=== PATIENT | female | born 2000 | race Caucasian/White ===

== ENCOUNTER 2020-03-02 12:38 | Emergency (ER) | payer SELFPAY ==
[2020-03-02 14:11] VITALS: BP 118/74; PULSE 84; RESP 18; TEMP 36.8; O2SAT 99
--- NOTE | 2020-03-02 15:18 | ED.GENADULT ---
HPI - General Adult General Chief complaint: Abdominal Pain <EFREN Mujica Last Filed: 03/02/20 16:24> Stated complaint: menstral cramps <FEREN Mujica Last Filed: 03/02/20 16:24> Time Seen by Provider: 03/02/20 14:04 <EFREN Mujica Last Filed: 03/02/20 16:24> Source: patient <EFREN Mujica Last Filed: 03/02/20 16:24> Mode of arrival: ambulatory <EFREN Mujica Last Filed: 03/02/20 16:24> Limitations: no limitations <EFREN Mujica Last Filed: 03/02/20 16:24> History of Present Illness HPI narrative: Patient presents with chief complaint of heavy menstrual cramps that woke her up at approximately 2 AM. Patient states she took 4 Tylenol and a Midol and now her symptoms have greatly improved. Patient states she was having heavy menstrual bleeding, but it is also resolved around 6 AM and is now light without clots. Patient states that she is not on any control as her neurologist discontinued it due to her epilepsy. Patient states she generally has strong cramps and heavy menstrual bleeding but they are normally resolved with 2 Tylenol and a Midol. Patient states that she is possibly try for and so she wondered if she was . Patient states she has had a urinary tract infection in the past but denies those symptoms at this time or any urinary symptoms. Patient denies fever, chills, nausea, vomiting, diarrhea, abdominal pain. <Carmen Burgess PA-C - Last Filed: 03/02/20 16:24> Related Data Home medications: Home Medications Medication Instructions Recorded Confirmed fluconazole 03/02/20 methylprednisolone mg 03/02/20 metronidazole 03/02/20 rizatriptan mg 03/02/20 03/02/20 <EFREN Mujica Last Filed: 03/02/20 16:24> Allergies/adverse reactions: Allergies Allergy/AdvReac Type Severity Reaction Status Date / Time Penicillins Allergy Severe Hives / Verified 03/02/20 14:05 Red Face prochlorperazine Allergy Severe Anaphylactic Verified 03/02/20 14:05 Shock sulfamethoxazole Allergy Severe Anaphylactic Verified 03/02/20 14:05 Shock trimethoprim Allergy Severe Anaphylactic Verified 03/02/20 14:05 Shock cinnamon AdvReac Intermediate Swelling Verified 03/02/20 14:05 <Carmen Burgess PA-C - Last Filed: 03/02/20 16:24> Review of Systems Review of Systems: Narrative: CONSTITUTIONAL: Denies fever, chills, or sweats. EYES: Denies visual changes, redness, or discharge. ENT: Denies rhinorrhea, congestion, sore throat, or otalgia. CARDIOVASCULAR: Denies chest pain, palpitations, or edema. RESPIRATORY: Denies cough or dyspnea. GASTROINTESTINAL: Reports menstrual cramping and bleeding denies abdominal pain, nausea, vomiting, or diarrhea. GENITOURINARY: Denies dysuria or hematuria. SKIN: Denies rash or itching. MUSCULOSKELETAL: Denies back pain, myalgia, or joint pain NEUROLOGIC: Denies headache, numbness, dizziness, or weakness. PSYCHIATRIC: Denies anxiety or depression. <Carmen Burgess PA-C - Last Filed: 03/02/20 16:24> Exam Narrative: Exam Narrative: GENERAL: Well-appearing, well-nourished. Patient sitting up in bed without any signs of discomfort or distress. Patient smiling and talking during exam. HEAD: Normocephalic, atraumatic. EYES: PERRLA and EOMI. ENT: Nares clear, no rhinorrhea or epistaxis. Mucous membranes moist. Oropharynx without tonsillar hypertrophy exudate or other lesions. Bilateral TMs pearly sheldon nonbulging NECK: Supple. No adenopathy or masses. No vertebral tenderness or loss of ROM. CHEST: Clear to auscultation. No respiratory distress. No wheezes rales or rhonchi HEART: Regular rate and rhythm. Normal peripheral pulses. ABDOMEN: Soft, nontender, nondistended, normal active bowel sounds. No bruises noted. EXTREMITIES: No acute changes in ROM. No edema. SKIN: Warm, dry, no rash. NEURO: No focal deficits. Alert and oriented x3. PSYCH: Normal moo
[2020-03-02] MEDS: KETOROLAC (*BKC) 60 MG/2 ML VIAL 30 MG IM (15:41)
== END 2020-03-02 16:39 | disposition home or self-care (01) ==
PROVIDERS: Emergency Provider General Practice
DX: N94.6 Dysmenorrhea, unspecified (principal)
CPT/HCPCS: 81025; 96372; 99283; J1885

== ENCOUNTER 2023-03-12 00:50 | Day surgery (SDC) | payer OTHER, SELFPAY ==
[2023-03-06 13:14] VITALS: BMI 21.1
[2023-03-12 09:53] VITALS: BP 112/78; PULSE 90; RESP 16; TEMP 36.2; O2SAT 98; BMI 20.3
[2023-03-12] MEDS: LACTATED RINGERS 1,000 ML 150 ML IV CONT (10:07)
--- NOTE | 2023-03-12 10:17 | WPDANESEPPF ---
Anes - Initial Pre Proc Eval Procedure: Operation Date: 03/12/23 13:45 Proposed Procedures p Esophagogastroduodenoscopy & Colonoscopy - Isauro Tom MD Date/Time: 03/12/23 10:17 Surgeon: Isauro Tom MD Pre Op Diagnosis: vomiting unspecified, dysphagia unspecified Patient Data Age: 23 Gender: F Height: 1.66 m Weight: 56.4 kg Last Vital Signs Temp 97.2 F L 03/12/23 09:53 Pulse 90 03/12/23 09:53 Resp 16 03/12/23 09:53 BP 112/78 03/12/23 09:53 Pulse Ox 98 03/12/23 09:53 O2 Del Method Room Air 03/12/23 09:53 Allergies Allergy/AdvReac Type Severity Reaction Status Date / Time Penicillins Allergy Severe Hives / Verified 03/12/23 09:52 Red Face prochlorperazine Allergy Severe Anaphylactic Verified 03/12/23 09:52 Shock sulfamethoxazole Allergy Severe Anaphylactic Verified 03/12/23 09:52 Shock trimethoprim Allergy Severe Anaphylactic Verified 03/12/23 09:52 Shock cinnamon AdvReac Intermediate Swelling Verified 03/12/23 09:52 Home Medications Medication Instructions Recorded Confirmed Type drospirenone (contraceptive) 4 mg 1 tablet PO DAILY 03/05/23 03/12/23 History (28) tablet (Slynd) omeprazole 40 mg capsule,delayed 40 mg PO .COMPLEX #30 caps 03/05/23 03/12/23 Rx release cariprazine 6 mg capsule (Vraylar) 6 mg PO DAILY 03/06/23 03/12/23 History Patient hx anesthesia problems: none Family hx anesthesia problems: none Results Review: All pre-operative results and documents have been reviewed as part of the pre-operative evaluation. [facility] Past Medical History Medical History (Updated 03/05/23 @ 14:41 by Monika Ureña APRN) Abnormal weight loss Chronic diarrhea Dysphagia Hematemesis Vapes nicotine containing substance Vomiting Social History Social History (Updated 03/05/23 @ 14:16 by Sharona Busch MA) Smoking status: Current every day smoker Alcohol intake: current Alcohol use details: Socially Substance use: current Substance use type: marijuana Other substance usage details: smokes Last use: 03/06/2023 Lack of Transportation: No Living arrangements: with family Occupation/Education: occupation Gender identity (if verbalized by the patient): Female Anes - Eval Final PreProcedure Day of Procedure 03/12/23 10:17 Patient weight: normal Heart: regular rate and rhythm Lungs: clear to auscultation Airway: Mallampati scale class II Neurological: alert and oriented Last oral intake: >/= 8 hours ASA classification: II Emergent: no Anesthetic plan: proceed Anesthesia type and monitoring: general GIVS and standard monitoring Results Review: All pre-operative results and documents have been reviewed as part of the pre-operative evaluation. Informed Consent: The patient's anesthetic plan and its attendant risks and benefits were discussed with the patient/family/POA. Questions were solicited and answers provided to the satisfaction of the patient/family/POA.
--- NOTE | 2023-03-12 10:20 | WPDHPUPDATE1 ---
History and Physical Update Update Date/Time: 03/12/23 10:20 History and Physical has been reviewed, including an updated exam of the patient. There are NO changes in the patient's condition. Risks, benefits, and alternatives have been discussed and questions answered. Patient agrees to proceed with procedure.
--- NOTE | 2023-03-12 10:35 | SUR.OPER ---
egd ended at 1029 and colonoscopy started at 1035
[2023-03-12 10:46] VITALS: BP 106/71; PULSE 79; RESP 16; O2SAT 100
[2023-03-12 10:56] VITALS: BP 113/75; PULSE 80; RESP 18; O2SAT 100
[2023-03-12 11:06] VITALS: BP 102/73; PULSE 70; RESP 20; O2SAT 99
--- NOTE | 2023-03-12 12:07 | SUR.PHASEII ---
Accidentally charted discharge on Jessica Bird, all charting corrected and reprinted.
== END 2023-03-12 11:15 | disposition home or self-care (01) ==
PROVIDERS: PCP Registered Nurse; Visit Provider Internal Medicine Gastroenterology
PROC: 0DJ08ZZ Inspection of Upper Intestinal Tract, Via Natural or Artificial Opening Endoscopic (ICD-10-PCS; CPT 43235; principal; 2023-03-12 13:45)
DX: R19.7 Diarrhea, unspecified (principal); R63.4 Abnormal weight loss; R11.10 Vomiting, unspecified; F12.90 Cannabis use, unspecified, uncomplicated; Z68.20 Body mass index [BMI] 20.0-20.9, adult
CPT/HCPCS: 45380; 43239; 88305; J2704; J7120

== ENCOUNTER 2024-08-25 15:00 | Observation (INO) | payer OTHER, SELFPAY ==
[2024-08-25 13:38] VITALS: BP 103/62; PULSE 81
[2024-08-25 13:45] VITALS: BP 107/65; PULSE 92
[2024-08-25 14:00] VITALS: BP 109/62; PULSE 74
--- OUTSIDE RECORDS SUMMARY | 2024-08-25 14:22 | XMS_ITS | Clinical Summary ---
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 Ordered By: LOIDA DALAL Interpreted By: Brigitte Lau, 07/03/2024 1:02 PM us Loida Dalal MD ULTRASOUND Final Result * HEPATITIS C ANTIBODY (04/27/2024 4:34 PM SUPERVISOR NUT PROCESSING) HEPATITIS C AB NON-REACTI VE NON-REACTI VE 04/27/2024 8:58 PM SUPERVISOR NUT PROCESSING [facility] 04/27/2024 4:34 PM SUPERVISOR NUT PROCESSING Pat Cordoba CNM LABORATORY Final Result [facility] [address] [place] [address], from Last 3 Months or Most Recently Relevant to Health Maintenance Insurance [place] Advance Directives * Full Code (Latest Code Status on File) Date Activated Date Inactivated Comments 08/14/2024 1:00 PM 08/14/2024 4:06 PM * Full Code Date Activated Date Inactivated Comments 07/28/2024 8:58 AM 07/28/2024 12:26 PM Care Teams Senior Design Engineer Relationship Specialty Start Date End Date Aniya Lyon FNP [address] [place] [address] [place] [address] PCP - General Nurse Practitioner Family 07/25/18
--- OUTSIDE RECORDS SUMMARY | 2024-08-25 14:22 | XMS_ITS | Encounter Summary ---
Author Organization [facility] Address [address] [place] [id number] Care Team Providers Care Buckle Sewer Machine Name Role Phone Aniya Lyon [facility] Primary Care Provider [phone] Encounter Details Date Type Department Care Team (Late st Contact Info) Description 08/16/2021 Drynchart Message Enc [facility] [address] [place] [address] Aniya Lyon, [facility] [address] [place] [address] New Meds/bleeding Social History Tobacco Use Types Packs/Day Years Used Date Smoking Tobacco: Never Smokeless Tobacco: Never PHQ-2 Answer Date Recorded PHQ-2 Score - If the patient scores above 3, please move on to questions 3-9 2 08/08/2021 Comments No Sex and Gender Information Value Date Recorded Sex Assigned at Female 08/07/2024 12:25 PM CDT Legal Sex Female 8:03 AM CDT Gender Identity Not on file Sexual Orientation Not on file COVID-19 Exposure Response Date Recorded In the last 10 days, have yo u been in contact with someone who was confirmed or suspected to have Coronavirus/COVID-19? No / Unsure 08/08/2021 2:00 PM CDT documented as of this encounter Progress Notes * Luli Maradiaga LPN - 08/16/2021 9:23 AM CDT Please review/advise. documented in this encounter Plan of Treatment Upcoming Encounters Date Type Department Care Team (Late st Contact Info) Description 12/07/2024 1:20 PM CDT Office Visit [facility] [address] [place] [address] Aniya Lyon FNP [address] [place] [address] documented as of this encounter Visit Diagnoses Not on filedocumented in this encounter Additional Health Concerns Infection Onset Date Last Indicated Resolved Time COVID-19 Rule Out 09/06/2021 09/06/2021 09/06/2021 7:14 PM CDT COVID-19 Rule Out 08/17/2023 08/17/2023 08/17/2023 12:29 AM CDT Respiratory Rule-Out 08/21/2024 08/21/2024 025 11:22 AM CDT Assessment Noted Time PHQ-9 Depression Total Score: 2 08/09/19 22 2:08 PM CDT documented as of this encounter Care Teams Buckle Sewer Machine Relationship Specialty Start Date End Date Aniya Lyon FNP [address] [place] [address] PCP - General Nurse Practitioner Family 07/25/18 documented as of this encounter
--- OUTSIDE RECORDS SUMMARY | 2024-08-25 14:22 | XMS_ITS | Encounter Summary ---
Author Organization [facility] Address [address] [place] [address] Care Team Providers Care Insurance Loss Assessor Name Role Phone Aniya Lyon [facility] Primary Care Provider [phone] Encounter Details Date Type Department Care Team (Late st Contact Info) Description 12/21/2017 Abstract [facility] Conversion Md, Generic Conversion, Social History Tobacco Use Types Packs/Day Years Used Date Smoking Tobacco: Never Assessed Comments Unknown Sex and Gender Information Value Date Recorded Sex Assigned at Female 08/07/2024 12:25 PM CDT Legal Sex Female 8:03 AM CDT Gender Identity Not on file Sexual Orientation Not on file documented as of this encounter Plan of Treatment Upcoming Encounters Date Type Department Care Team (Late st Contact Info) Description 12/07/2024 1:20 PM CDT Office Visit [facility] [address] [facility] [address] [place], [place] [id number] Aniya Lyon [place] [address] [place] [address] documented as of this encounter Visit Diagnoses Not on filedocumented in this encounter Additional Health Concerns Infection Onset Date Last Indicated Resolved Time COVID-19 Rule Out 12/30/2019 12/30/2019 01/06/2020 7:51 AM CDT COVID-19 Rule Out 03/29/2020 03/29/2020 03/31/2020 7:41 AM WOOD MECHANIST COVID-19 Confirmed 03/29/2020 03/29/2020 12:33 AM WOOD MECHANIST COVID-19 Rule Out 02/21/2021 02/21/2021 02/21/2021 1:55 PM CDT COVID-19 Rule Out 09/06/2021 09/06/2021 09/06/2021 7:14 PM CDT COVID-19 Rule Out 08/17/2023 08/17/2023 08/17/2023 12:29 AM CDT Respiratory Rule-Out 08/21/2024 08/21/2024 025 11:22 AM CDT documented as of this encounter Care Teams Insurance Loss Assessor Relationship Specialty Start Date End Date Aniya Lyon FNP [address] [place] [address] [place] [address] PCP - General Nurse Practitioner Family 07/25/18 documented as of this encounter
--- OUTSIDE RECORDS SUMMARY | 2024-08-25 14:22 | XMS_ITS | Encounter Summary ---
Author Organization [facility] Address [address] [place] [address] Care Team Providers Care Certified Scrum Master Name Role Phone Aniya Lyon [facility] Primary Care Provider [phone] Encounter Details Date Type Department Care Team (Late st Contact Info) Description 08/08/2021 MyChart Message Enc [facility] [address] [place] [address] Aniya Lyon, [facility] [address] [place] [address] [place] Social History Tobacco Use Types Packs/Day Years [...] Progress Notes * Luli Maradiaga LPN - 08/08/2021 4:37 PM CDT Please review/advise. documented in this encounter Plan of Treatment Upcoming Encounters Date Type Department Care Team (Late st Contact Info) Description 12/07/2024 1:20 PM CDT Office Visit [facility] [address] [place] [address] Aniya Lyon FNP [address] [place] [address] documented as of this encounter Visit Diagnoses [...] documented as of this encounter Care Teams Certified Scrum Master Relationship Specialty Start Date End Date Aniya Lyon FNP [address] [place] [address] PCP - General Nurse Practitioner Family 07/25/18 documented as of this encounter
--- OUTSIDE RECORDS SUMMARY | 2024-08-25 14:23 | XMS_ITS | Data Portability ---
Author Organization [facility], [id number] Address [address] [place] [address] Assessment No assessment recorded. Plan of Treatment Reminders Order Date Submit Date Provider Last Modified By Organization Details Last Modified Time Details Appointments None recorded. Lab CBC w/ diff - between 08/21-42024 025 [facility], [address] [place] [address] [place], [address], 5 14:53:07 HIV 1+2 AB + HIV 1 p24 Ag, qualitative immunoassay , serum 2024 025 [facility], [address] [place] [address] [place], [address], 5 14:53:06 [email or web address] Ab, igg 2024 025 [facility] (Lab), [address] [place] [address] [place], [address], 5 14:53:07 antibody screen, serum or plasma 2024 025 [facility], [address] [place] [address] [place], [address], 5 14:53:07 glucose tolerance test, post-50G, 1-hour 2024 025 [facility], [address] [place] [address] [place], [address], 14:53:07 Referral None recorded. Procedures None recorded. Surgeries None recorded. Imaging US, obstetric, follow-up 2024 025 [email or web address] [facility] [place], [address], 14:44:08 US, obstetric - growth and DEQUAN 2024 025 [facility] [place], [address], 13:18:00 Medication Orders None recorded. Patient TargetsNo targets recorded. Patient InstructionsNo instructions recorded. Reason for Referral None Reported. Results Created Date Observation Date Name Description Value Unit Range Abnormal Flag Note LastModifiedBy Organization Detail LastModifiedTime 08/01/1907/28/2024 non-s tress test No observ ation record ed. [email or web address] Not Available 2024 10:36:35 08/09/19 25 08/07/2024 US, obste tric No observ ation record ed. [email or web address] [facility] Harika [place], [place], [address], 08/11/2024 17:47:59 08/23/19 25 08/14/2024 imagi ng/di agnos tic resul t No observ ation record ed. [facility] [address] [place], [address], 08/22/2024 07:44:38 Result Notes None recorded. Problems Name Problem SNOMED Code Status Onset Date Resolution Date Notes Provider Name and Address Organization Details Recorded Time 32329426 Active 2024 Suzanne thurman [facility] 16:56:39 Attention deficit hyperacti vity disorder 269341954 Active 2024 Suzanne thurman [facility] 5 09:01:58 Asthma 691943361 Active RAMESH HUGH MAURO CNM [address], [place], [address] , [facility] 5 10:14:11 Bipolar disorder 26859819 Active RAMESH BORJASM [address], [place], [address] , [facility] 5 10:14:21 Migraine 91726656 Active RAMESH HUGH BORJASM [address], [place], [address] , [facility] 5 10:14:27 Seizure disorder 882543752 Active 2024 chronic complex migraine w/onset petit mal seizure per pt dec 2020, Dr Thomas neurologis t at [facility] prescribed rizatripta n in 02/2019 for migraine and PCP Lor Brewer and Aniya Lopez refill for hew now. Stopped her amitryptil ine for stress in Apr 2019 as no sz for 2 yr and none since. Suzanne Wilkins olman, [facility] 5 09:04:58 Nulliparo 893104122 Active ASA RAMESH BORJASM [address], [place], [address] , [facility] 5 10:14:03 Asthma 489189185 Active RAMESH BORJASM [address], [place], [address] , [facility] 5 10:14:11 Bipolar disorder 76538068 Active RAMESH BORJASM [address], [place], [address] , [facility] 5 10:14:21 Migraine 38317498 Active RAMESH MAURO CNM [address], [place], [address] , [facility] 5 10:14:27 Marijuana user 228033096 Active marijuana, recom stop RAMESH MAURO CNM [address], [place], [address] , [facility] 5 10:14:49 Exposure to Bordetell a pertussis Active 2024 DESTINEY DALAL MD [address] [facility] [address], [place], [address] , [facility] 5 19:29:01 Problem Notes None recorded. Procedures Surgical History Date Name Laterality Status Provider Name and Address Organization Details Recorded Time 3 Date of Last Pap Smear completed [facility] 07/24/2024 09:00:00 3 Colonoscopy completed [facility] 07/24/2024 08:58:53 3 endoscopy completed [facility] 07/24/2024 08:59:05 Imaging Results Imaging Date Name Status LastModified by Organiz ation Details LastModified Time 07/28/2024 non-stress test completed [email or web address] Information not available 07/31/2024 10:36:35 08/07/2024 US, obstetric completed [email or web address] [facility] Harika [address] [place], [address], 08/11/2024 17:47:59 08/14/2024 imaging/diagno stic result active [facility] [address] [place], [address], 08/22/2024 07:44:38 Procedure Notes None recorded. Medical Equipment None Reported. Allergies Allergen ID Allergen Name Allergen Category Reaction Reaction Severity Criticality Documentation Date Start Date Code Code System Note Provider Name and Address Organization Details Recorded Time 766386 amoxicill in medicatio n hives Not available Not available 07/24/2024 723 RxNorm Suzanne Ketten null, [facility] 5 09:00:59 071861 Bactrim medicatio n Not available Not available Not available 07/24/2024 73910 9 RxNorm Suzanne Ketten null, [facility] 5 09:01:06 331447 cinnamon preparati on food,medi cation hives Not available Not available 07/24/2024 38916 5 RxNorm Suzanne Ketten null, [facility] 5 09:01:19 769380 Compazine medicatio n anaphylax is Not available Not available 07/24/2024 66626 6 RxNorm Suzanne Ketten null, [facility] 5 09:01:32 952426 Product containin g penicilli n (product) medicatio n hives Not available Not available 07/24/2024 31239 8001 SNOMED Suzanne Ketten null, [facility] 5 09:01:50 Medications Name Sig Start Date Stop Date Status Note LastModified by Organization Details LastModified Time electronic breast pump 2024 active Not Available Not Available Not Avai lable azithromycin 250 mg tablet TAKE 2 TABLETS (500 MG) BY ORAL ROUTE ONCE DAILY FOR 1 DAY THEN 1 TABLET (250 MG) BY ORAL ROUTE ONCE DAILY FOR 4 DAYS 2024 active Not Available Not Available Not Avai lable meloxicam 15 mg tablet 07/24 completed Not Available Not Available Not Available lithium carbonate ER 300 mg tablet,exten ded release 07/24 completed Not Available Not Available Not Available Concerta 36 mg tablet,exten ded release 07/24 completed Not Available Not Available Not Available sertraline 25 mg tablet 07/24 completed Not Available Not Available Not Available montelukast 10 mg tablet active Not Available Not Available Not Available Baby Aspirin 81 mg chewable tablet Chew 1 tablet every day by oral route. active Not Available Not Available No t Available hydroxyzine HCl 10 mg tablet 07/24 completed Not Available Not Available Not Available back brace wear daily for support 2024 active Not Available Not Available Not Avai lable active Not Available Not Avai lable Not Available Vraylar 6 mg capsule 07/24 completed Not Available Not Available Not Available Vraylar 3 mg capsule 07/24 completed Not Available Not Available Not Available Slynd 4 mg (28) tablet 07/24 completed Not Available Not Available Not Available Vitals Date Recorded Body weight Systolic blood pressure Diastolic blood pressure Provider Name and Address Organization Details Last Updated DateTime 07/24/2024 04407.8615 1 g 118 mm[Hg] 60 mm[Hg] Clif Estrada [facility] 07/24/2024 10:06:13 Social History Question Answer Notes LastModified by Organizat ion Details LastModified Time Tobacco Smoking Status Never Smoker Suzanne Wilkins [facility] 07/24/2024 08:58:00 Do You Have An Advance Directive? No Information not available 07/24/2024 What Is Your Level Of Alcohol Consumption? None Information not available 07/24/2024 How Many Times Per Week Do You Consume Alcohol? Less Than 1 Time Per Week Information not available 07/24/2024 If You Are , What Was Your Level Of Alcohol Consumption Prior To ? Occasional Information not available 07/24/2024 What Is Your Level Of Caffeine Consumption? Occasional Information not available 07/24/2024 Are You Currently Employed? Yes Information not available 07/24/2024 What Type Of Diet Are You Following? REGULAR Information not available 07/24/2024 What Is Your Relationship Status? Single Information not available 07/24/2024 Do You Use Any Illicit Or Recreational Drugs? No Information not available 07/24/2024 Are You Currently In School? Yes Information not available 07/24/2024 Sex: Unknown Functional Status None recorded. Mental Status None recorded. Family History Relationship Description Onset Age of this Age Resolved Age Notes LastModified by Organization Details LastModified Time Brother Asthma [email or web address] Not available 07/24/2024 10:07:44 Brother Bipolar disorder [email or web address] Not available 2024 10:07:44 Brother Malignant neoplastic disease [email or web address] Not available 2024 10:07:44 Brother Depressive disorder tketten Not available 2024 09:39:39 Brother Heart disease [email or web address] Not available 2024 09:40:17 Maternal Grandfather Asthma [email or web address] Not available 06/28 10:07:44 Maternal Grandfather Bipolar disorder [email or web address] Not available 2024 10:07:44 Maternal Grandfather Malignant neoplastic disease [email or web address] Not available 2024 10:07:44 Maternal Grandfather Depressive disorder [email or web address] Not available 2024 10:07:44 Maternal Grandfather Heart disease [email or web address] Not available 2024 10:07:44 Paternal Grandfather Asthma [email or web address] Not available 06/28 10:07:44 Paternal Grandfather Bipolar disorder [email or web address] Not available 2024 10:07:44 Paternal Grandfather Malignant neoplastic disease [email or web address] Not available 2024 10:07:44 Paternal Grandfather Depressive disorder [email or web address] Not available 2024 10:07:44 Paternal Grandfather Heart disease [email or web address] Not available 2024 10:07:44 Maternal Grandmother Asthma tketten Not available 2024 09:37:32 Maternal Grandmother Bipolar disorder [email or web address] Not available 2024 10:07:44 Maternal Grandmother Malignant neoplastic disease [email or web address] Not available 2024 10:07:44 Maternal Grandmother Depressive disorder [email or web address] Not available 2024 10:07:44 Maternal Grandmother Heart disease [email or web address] Not available 2024 10:07:44 Maternal Grandmother High risk [email or web address] Not available 2024 10:07:44 Mother Asthma [email or web address] Not available 07/24/2024 10:07:44 Mother Bipolar disorder [email or web address] Not available 2024 10:07:44 Mother Depressive disorder [email or web address] Not available 2024 10:07:44 Mother Heart disease [email or web address] Not available 2024 10:07:44 Mother Disorder of thyroid gland [email or web address] Not available 2024 10:07:44 Mother Hyperthyroid ism [email or web address] Not available 2024 10:07:44 Mother High risk [email or web address] Not available 2024 10:07:44 Paternal Grandmother Malignant neoplastic disease [email or web address] Not available 2024 10:07:44 Paternal Grandmother Depressive disorder [email or web address] Not available 2024 10:07:44 Paternal Grandmother Heart disease [email or web address] Not available 2024 10:07:44 Sister Anxiety disorder [email or web address] Not available 2024 10:07:44 Sister Depressive disorder [email or web address] Not available 2024 10:07:44 Father Disorder of thyroid gland [email or web address] Not available 2024 10:07:44 Father Anxiety disorder [email or web address] Not available 2024 10:07:44 Father Depressive disorder [email or web address] Not available 2024 10:07:44 Father Substance abuse [email or web address] Not available 2024 10:07:44 Medical History Condition Response Psych- Anxiety Disorder Y Psych- Depression Y GI-Other Y Psych- Bipolar Disease Y Neurology- Headaches/Migraines Y Neurology- Seizures/Epilepsy Y Gynecological History Statement/Question Response History of PCOS N Flow Heavy History of Fibroids N Date of LMP 02/01/2024 History of Infertility N History of Vulvar Dysplasia N History of Cervical Dysplasia N Duration of Flow (days) 4 Age at Menarche 12 History of Recurrent Ovarian Cysts Y Age at first intercourse 16 History of Endometriosis Y Frequency of Cycle (Q days) 28 Sexually Active? Y History of Dysmenorrhea N Menses Monthly N Date of Last Pap Smear 06/08/2022 Sexual Problems? N History of Sexually Transmitted Infectio n N Obstetrics History GPAL:G 2 P 0 0 1 0 Type Value Spontaneous 1 Living 0 Total 2 Immunizations Vaccine Type Date Status Note Provider Fer platt and Address Organization Details Recorded Time HPV9 07/24/2024 completed Suzanne Wilkins [facility] 07/24/2024 08:50:17 influenza, unspecified formulation 05/27/2021 completed Suzanne Wilkins [facility] 07/24/2024 09:36:14 Past Encounters Encounter ID Performer Location Encounter Start Date Encounter Closed Date Diagnosis/Indication Diagnosis SNOMED-CT Code Diagnosis ICD10 Code Diagnosis Note [id number] RAMESH REESE [facility] [id number] [place] [address] 07/24/2024 09:56:33 07/24/2024 10:30:45 screening 518074828 Z36.9 Normal pre gnancy in multigravida 0846123376 76871 Z34.82 Health Concerns Section Related Observation LastModified by Organization Detai ls LastModified Time None Recorded Concern Status LastModified by Organization Details LastModified Time None Recorded Advance Directives Directive N: Payers Encounter Date Sequence Insurance Name Policy Number Policy Silva Covered Member ID Silva Member ID Guarantor Name 07/24/2024 1 [facility] (MEDICAID HMO) [id number] Edelmira Shi [id number] Edelmira Shi OBGyn Episode Ob Episode Information Episode Created Date Number of Fetuses Patient Bloodtype Patient rh Status Prepregnancy Weight lbs Domestic Partner Domestic Partner Phone Father Name Auction Assistant Status 07/07/19 25 1 A Positive 132 OPEN Fetus Data First Name Last Name Admitted to NICU Weight (g) Sex Living Outcome Pediatric Complications Fetus ID Race Codes Race Delivery Type [id number] Problems Problem Notes sahil 27 edc - 7w pole @NOB, 3 w after +HPTpertussis exposure at schoool @25w, Zpak eRx'd Problem Name Start Date End Date Resolution Snomed Code Not e Migraine 03103313 Bipolar disorder 62870748 Nulliparous [id number] ASA Asthma 091237981 Marijuana user 822936950 tang uana, recom stop Mynor Calculation Initial Mynor Date Initial Exam Date Initial Exam Provider Initial Ultrasound Date Last Menstrual Period Date Ultra Sound Weeks Gestation 11/20/2024 04/03/2024 [email or web address] 04/03/2024 02/01/2024 7 Eighteen To Twenty Week Mynor Update Ultra Sound Date Fundal Height At Umbil Quickening Date Ultra Sound Latest Weeks Gestation Final Mynor Confirmed By Final Mynor Confirmed Date Final Mynor Date Ultra Sound Latest Days Gestation 07/03/19 25 19 11/22/19 25 6 Pre- Flowsheet Flowsheet Date 07/24/2024 Christianson Score Blood Edema Fundus Height Fundus Units Glucose Ketones Leukocytes Nitrite Labor Signs Protein Cervic Dilation Cervic Effacement Cervic Station trace 21 cm none none neg Type Weight in lbs Pre/Post Dialysis Refused 123.717310785150 BP Diastolic BP Location Tested BP Systolic BP Type 60 118 Fetus Heart Rate Present A Present Fetus Movement A Yes Comments hx/rx'd doing okay no concer n mw. Vaccine recommendations given. Menstrual History Last Menstrual Date Menses Monthly On Bcp Conception Prior Menses Frequency Hcg Plus Date Menarche Onset Age 0902/01/2024 Genetic Screening And Infection History Question Response Note Mental Retardation/Autism false Patient's Age Will Be 35 Years Or Older At Estim ated Date of Delivery false Thalassemia (Cymraes, Bahamian, Mediterranean, Or Background): MCV < 80 false Neural Tube Defect (Meningomyelocele, Spina Bifi da, Or Anencephaly) false Congenital Heart Defect false Down Syndrome false Jose J-Sachs (eg, Pentecostal, Cajun, Croatian-Baca) f alse Erin Disease false Sickle Cell Disease Or Trait () false Hemophilia Or Other Blood Disorders false Muscular Dystrophy false Cystic Fibrosis false Amelia's Chorea false Intellectual Disability/Autism false If Yes, Was Person Tested For Fragile X? false Other Inherited Genetic Or Chromosomal Disorder false Maternal Metabolic Disorder (eg, Type 1 Diabetes , PKU) false Patient Or Baby's Father Had A Child With Defects Not Listed Above false Recurrent Loss, Or A Stillbirth false Medications (including Suppl ements, Vitamins, Herbs, OTC Drugs), Illicit/Recreational Drugs, Alcohol false If Yes, Agent(s) And Strength/Dosage false Any Other Genetic History false Live With Someone With TB Or Exposed To TB false Patient Or Partner Has History Of Genital Herpes false Rash Or Viral Illness Since Last Menstrual Perio d false History Of STD, Gonorrhea, Chlamydia, HPV, Syphi lis false Other Infection History false History of HIV false History of Hepatitis false Prior GBS-infected child false Hemoglobinopathy Or Carrier false Recent Travel History Outside of Country false Other Structural Defect false Delivery Information Delivery Date Delivery Type Labor Anesthesia Weeks Gestation Incision Type Labor Labor Length Hrs Delivered By Post Complications Tubal Sterilization Discharge Date Comments Discharge Information Feeding Method Contraceptive Method Maternal HG B and HCT Levels Ob Episode Information Episode Created Date Number of Fetuses Patient Bloodtype Patient rh Status Prepregnancy Weight lbs Domestic Partner Domestic Partner Phone Father Name Auction Assistant Status 07/24/19 25 1 DELETED Mynor Calculation Initial Mynor Date Initial Exam Date Initial Exam Provider Initial Ultrasound Date Last Menstrual Period Date Ultra Sound Weeks Gestation 0 Eighteen To Twenty Week Mynor Update Ultra Sound Date Fundal Height At Umbil Quickening Date Ultra Sound Latest Weeks Gestation Final Mynor Confirmed By Final Mynor Confirmed Date Final Mynor Date Ultra Sound Latest Days Gestation 0 0 Menstrual History Last Menstrual Date Menses Monthly On Bcp Conception Prior Menses Frequency Hcg Plus Date Menarche Onset Age Delivery Information Delivery Date Delivery Type Labor Anesthesia Weeks Gestation Incision Type Labor Labor Length Hrs Delivered By Post Complications Tubal Sterilization Discharge Date Comments 0 39 SJB-CH Discharge Information Feeding Method Contraceptive Method Maternal HG B and HCT Levels Ob Episode Information Episode Created Date Number of Fetuses Patient Bloodtype Patient rh Status Prepregnancy Weight lbs Domestic Partner Domestic Partner Phone Father Name Auction Assistant Status 07/24/19 25 1 DELETED Mynor Calculation Initial Mynor Date Initial Exam Date Initial Exam Provider Initial Ultrasound Date Last Menstrual Period Date Ultra Sound Weeks Gestation 0 Eighteen To Twenty Week Mynor Update Ultra Sound Date Fundal Height At Umbil Quickening Date Ultra Sound Latest Weeks Gestation Final Mnyor Confirmed By Final Mynor Confirmed Date Final Mynor Date Ultra Sound Latest Days Gestation 0 0 Menstrual History Last Menstrual Date Menses Monthly On Bcp Conception Prior Menses Frequency Hcg Plus Date Menarche Onset Age Delivery Information Delivery Date Delivery Type Labor Anesthesia Weeks Gestation Incision Type Labor Labor Length Hrs Delivered By Post Complications Tubal Sterilization Discharge Date Comments 3 Discharge Information Feeding Method Contraceptive Method Maternal HG B and HCT Levels
--- OUTSIDE RECORDS SUMMARY | 2024-08-25 14:23 | XMS_ITS | Encounter Summary ---
Author Organization [facility] Address [address] [place] [address] Care Team Providers Care Basket Assembler Name Role Phone Aniya Lyon [facility] Primary Care Provider [phone] Encounter Details Date Type Department Care Team (Late Contact Info) Description 11/13/2019 Results Notification [address] [address] Inessa Blue FNP Social History Tobacco Use Types Packs/Day Years Used Date Smoking Tobacco: Never Smokeless Tobacco: Never Comments No Sex and Gender Information Value Date Recorded Sex Assigned at Female 08/07/2024 12:25 PM CDT Legal Sex Female 8:03 AM CDT Gender Identity Not on file Sexual Orientation Not on file COVID-19 Exposure Response Date Recorded In the last month, have you been in contact with someone who was confirmed or suspected to have Coronavirus / COVID-19? No / Unsure 11/10/2019 4:15 PM CDT documented as of this encounter Progress Notes * ROHAN Jackson - 11/13/2019 10:41 AM CDT Urine culture results negative documented in this encounter Plan of Treatment Upcoming Encounters Date Type Department Care Team (Late Contact Info) Description 12/07/2024 1:20 PM CDT Office Visit [address] [place] [address] Aniya Lyon FNP [address] [place] [address] documented as of this encounter Visit Diagnoses Not on filedocumented in this encounter Additional Health Concerns Infection Onset Date Last Indicated Resolved Time COVID-19 Rule Out 12/30/2019 12/30/2019 01/06/2020 7:51 AM CDT COVID-19 Rule Out 03/29/2020 03/29/2020 03/31/2020 7:41 AM TERMINAL GAUGER COVID-19 Confirmed 03/29/2020 03/29/2020 12:33 AM TERMINAL GAUGER COVID-19 Rule Out 02/21/2021 02/21/2021 02/21/2021 1:55 PM CDT COVID-19 Rule Out 09/06/2021 09/06/2021 09/06/2021 7:14 PM CDT COVID-19 Rule Out 08/17/2023 08/17/2023 08/17/2023 12:29 AM CDT Respiratory Rule-Out 08/21/2024 08/21/2024 025 11:22 AM CDT documented as of this encounter Care Teams Basket Assembler Relationship Specialty Start Date End Date Aniya Lyon FNP [address] [place] [address] [place] [address] PCP - General Nurse Practitioner Family 07/25/18 documented as of this encounter
--- OUTSIDE RECORDS SUMMARY | 2024-08-25 14:23 | XMS_ITS | Encounter Summary ---
Author Organization [facility] Address [address] [place] [address] Care Team Providers Care Patient Transport Officer Name Role Phone Aniya Lyon [facility] Primary Care Provider [phone] [phone] Encounter Details Date Type Department Care Team (Late st Contact Info) Description 11/23/2019 MyChart Message Enc [address] [place] [phone] Lor Brewer [address] [place] [address] RE: Follow Up/Update Social History Tobacco Use Types Packs/Day Years [...] have Coronavirus / COVID-19? No / Unsure 11/17/2019 3:27 PM CDT documented as of this encounter Plan of Treatment Upcoming Encounters Date Type Department Care Team (Late st Contact Info) Description 12/07/2024 1:20 PM CDT Office Visit [address] [place] [phone] Aniya Lyon [address] [place], [place] [phone] documented as of this encounter Visit Diagnoses Not on filedocumented in this encounter Additional Health Concerns Infection Onset Date Last Indicated Resolved Time COVID-19 Rule Out 12/30/2019 12/30/2019 01/06/2020 7:51 AM CDT COVID-19 Rule Out 03/29/2020 03/29/2020 03/31/2020 7:41 AM NEONATAL CRITICAL CARE NURSE COVID-19 Confirmed 03/29/2020 03/29/2020 12:33 AM NEONATAL CRITICAL CARE NURSE COVID-19 Rule Out 02/21/2021 02/21/2021 02/21/2021 1:55 PM CDT COVID-19 Rule Out 09/06/2021 09/06/2021 09/06/2021 7:14 PM CDT COVID-19 Rule Out 08/17/2023 08/17/2023 08/17/2023 12:29 AM CDT Respiratory Rule-Out 08/21/2024 08/21/2024 025 11:22 AM CDT documented as of this encounter Care Teams Patient Transport Officer Relationship Specialty Start Date End Date Aniya Lyon FNP [address] [place] [address] [place] [address] PCP - General Nurse Practitioner Family 07/25/18 documented as of this encounter
--- OUTSIDE RECORDS SUMMARY | 2024-08-25 14:23 | XMS_ITS | Clinical Summary ---
Author Organization [facility] Address [address] [place] [address] Care Team Providers Care Vocal Music Instructor Name Role Phone Corrina Brewer SOLE LEVELER-ARBORICULTURE INSTRUCTOR Primary Care Provider [phone]- [phone] Source Comments [facility],non-owned Affiliates and Associated Physician Practices is amultiple site organization consisting of ambulatory clinics and hospital sitesin [place], [place], [place] and [place]. This disclosure is being madepursuant to the Care Everywhere program and may not contain all information available regarding this patient. Last updated 18.[facility] Allergies Active Allergy Reactions Criticality Noted Date Comments Cinnamon Swelling 08/23/2014 Oral swelling if inhaled Penicillins Urticaria 08/23/2014 Medications Be aware that medications may not be up to date on this document. Always verify current medications with the patient. No known medications Family History Medical History Relation Name Comments IA<55(male) Brother Arrhythmia Neg Hx CVA<55(male) Neg Hx CVA<65(female) Neg Hx Cardiomyopathy Neg Hx Congenital Heart defect Neg Hx Heart Surgery Neg Hx Long QT Syndrome Neg Hx IA<65(female) Neg Hx Marfan Syndrome Neg Hx Pacemaker Neg Hx Sudd. <30 Neg Hx Relation Name Status Comments Brother Alive Social History Tobacco Use Types Packs/Day Years Used Date Smoking Tobacco: Never Alcohol Use Standard Drinks/Week Comments Not Asked 0 (1 standard drink = 0.6 oz pur e alcohol) Sex and Gender Information Value Date Recorded Sex Assigned at Not on file Gender Identity Not on file Sexual Orientation Not on file Last Filed Vital Signs Vital Sign Reading Time Taken Comments Blood Pressure 98/42 04/07/2015 8:33 AM DENTAL RECEPTIONIST Pulse 84 04/07/2015 8:33 AM DENTAL RECEPTIONIST Temperature - - Respiratory Rate 16 04/07/2015 8:33 AM DENTAL RECEPTIONIST Oxygen Saturation 97% 04/07/2015 8:33 AM DENTAL RECEPTIONIST Inhaled Oxygen Concentration - - Weight 53.6 kg (118 lb 2.7 oz) 04/07/2015 8:33 A M DENTAL RECEPTIONIST Height 165 cm (5' 4.96 ) 04/07/2015 8:33 AM DENTAL RECEPTIONIST Body Mass Index 19.69 04/07/2015 8:33 AM DENTAL RECEPTIONIST Plan of Treatment Health Maintenance Due Date Last Done Comments PAP SMEAR 2000 HIV SCREENING 02/12/2015 HPV VACCINE (1 - 3-dose series) 02/12/2015 CHLAMYDIA/GONORRHEA SCREENING 2016 HEPATITIS C SCREENING 02/08/2018 DTAP/TDAP/TD VACCINES (1 - Tdap) 02/12/2019 HEPATITIS B VACCINE (1 of 3 - 19+ 3-dose series) 02/12/2019 COVID-19 VACCINE (1 - 2023-2 5 season) 2024 INFLUENZA VACCINE (#1) 2024 DEPRESSION SCREENING 05/27/2024 ZOSTER VACCINE (1 of 2) 02/12/2050 HIB VACCINE Aged Out No longer eligi ble based on patient's age to complete this topic MENINGOCOCCAL (Group B) VACC INE SHARED DECISION-MAKING Aged Out No longer eligibl e based on patient's age to complete this topic MENINGOCOCCAL GROUPS A/C/Y/W VACCINE Aged Out No longer eligible b ased on patient's age to complete this topic PNEUMOCOCCAL VACCINE Aged Out No long er eligible based on patient's age to complete this topic Care Teams Vocal Music Instructor Relationship Specialty Start Date End Date Corrina Brewer, SOLE LEVELER-ARBORICULTURE INSTRUCTOR PCP - General 08/23/14
--- OUTSIDE RECORDS SUMMARY | 2024-08-25 14:23 | XMS_ITS | Encounter Summary ---
Author Organization [facility] Address [address] [place] [address] Care Team Providers Care Advertising Assistant Manager Name Role Phone Aniya Lyon [facility] Primary Care Provider [phone] Encounter Details Date Type Department Care Team (Late st Contact Info) Description 05/03/2020 MyChart Message Enc [address] [place] [phone] Lor Brewer [place] [address] [place] [phone] RE: Referral Request Social History Tobacco Use Types Packs/Day Years [...] Description 12/07/2024 1:20 PM CDT Office Visit [address] [place] [address] Aniya Lyon [address] [place] [address] documented as of this encounter Visit Diagnoses Not on filedocumented in this encounter Additional Health Concerns Infection Onset Date Last Indicated Resolved Time COVID-19 Confirmed 03/29/2020 03/29/2020 12:33 AM SMOKING TOBACCO PACKING MACHINE HAND COVID-19 Rule Out 02/21/2021 02/21/2021 02/21/2021 1:55 PM CDT COVID-19 Rule Out 09/06/2021 09/06/2021 09/06/2021 7:14 PM CDT COVID-19 Rule Out 08/17/2023 08/17/2023 08/17/2023 12:29 AM CDT Respiratory Rule-Out 08/21/2024 08/21/2024 025 11:22 AM CDT documented as of this encounter Care Teams Advertising Assistant Manager Relationship Specialty Start Date End Date Aniya Lyon FNP [address] [place] [address] [place] [address] PCP - General Nurse Practitioner Family 07/25/18 documented as of this encounter
[2024-08-25 14:44] VITALS: BP 103/62; PULSE 70
[2024-08-25 14:49] LABS: Add Urine Microscopic? YES; Appearance Urine Clear (Clear); Bacteria Urine None Seen /hpf; Bilirubin Urine Negative (Negative); Blood Urine Negative (Negative); Color Urine Yellow (Yellow); Glucose Urine UA Negative (Negative); Ketones Urine Negative (Negative); Leukocyte Esterase Ur Trace LEU/UL (Negative); Nitrate Urine Negative (Negative); Non Pathogenic Casts 0-2; Protein Urine Negative (Negative); RBC Urine 0-2 /hpf (0-2); Specific Grav Ur 1.005 (1.001-1.035); Squamous Epithelial Cell Urine None Seen /hpf (Few); Urobilinogen Urine 0.2 mg/dL (<2.0); WBC Urine 0-5 /hpf (0-3)
[2024-08-25 15:02] VITALS: BMI 24.2
[2024-08-25 15:05] LABS: OBXCEM ROM Plus Negative (Negative)
[2024-08-25] MEDS: NIFEdipine 10 MG CAPSULE PO (15:16)
--- NOTE | 2024-08-25 15:35 | OBADM ---
This patient, Edelmira Shi, admitted to the OB room OB Post 116 for observation. Patient/family oriented to hospital policies and general routines including ID bracelet, bed and alarms, visiting hours, pain management, procedures, bathroom and other care routines, personal items, smoking policy, room service/diet, and visiting hours. Patient/Family are encouraged to report perceived risks to care and to ask questions if they do not understand what they are told or what they should do.
--- NOTE | 2024-09-01 12:26 | P.PNOB_ITS ---
OB - Triage/Final Diagnosis Visit Information Date of evaluation: 08/25/24 Reason for evaluation: threatened labor Comments/Additional reasons for admission: I have assessed the risk for this patient, Edelmira Shi, and determined that she would benefit from observation care. Evaluation Laboratory results: Laboratory Tests 08/25/24 08/25/24 14:33 15:02 Urine Color Yellow Urine Appearance Clear Urine pH 7.0 Ur Specific [place] 1.005 Urine Protein Negative Urine Glucose (UA) Negative Urine Ketones Negative Ur Blood (Man) Negative Urine Nitrate Negative Urine Bilirubin Negative Urine Urobilinogen 0.2 Leukocyte Esterase Rfl Trace H Urine RBC 0-2 Urine WBC 0-5 Ur Squamous Epith Cells None seen Urine Bacteria None seen Urine Casts 0-2 Membranes Rupture Rom plus negative
== END 2024-08-25 15:30 | disposition home or self-care (01) ==
LOC: ANHOBOP 15:36 → ANHOBPP 15:36
PROVIDERS: Advanced Practice Midwife; Admitting Provider Obstetrics & Gynecology; PCP Registered Nurse; Visit Provider Obstetrics & Gynecology
DX: O47.02 False labor before 37 completed weeks of gestation, second trimester (principal); Z3A.27 27 weeks gestation of pregnancy
CPT/HCPCS: 59025; 81001; 84112; A9270; G0378; G0379

== ENCOUNTER 2024-08-26 11:58 | Observation (INO) | payer OTHER, SELFPAY ==
[2024-08-26] VITALS (23 sets, daily range): BP systolic 103–109; BP diastolic 62–65; PULSE 85–99; O2SAT 97–99; BMI 24.9
--- OUTSIDE RECORDS SUMMARY | 2024-08-26 13:26 | XMS_ITS | Encounter Summary ---
Author Organization [facility] Address [address] [place] [address] Care Team Providers Care Taker Off Drying Kiln Name Role Phone Aniya Lyon [facility] Primary Care Provider [phone] [phone] Encounter Details Date Type Department Care Team (Late st Contact Info) Description 05/03/2020 MyChart Message Enc [address] [place] [phone] Lor Brewer [place] [address] [place] [phone] RE: Referral Request Social History Tobacco Use [...] Description 12/07/2024 1:20 PM CDT Office Visit [address] [place] [address] Aniya Lyon [address] [place] [address] documented as of this encounter Visit Diagnoses Not on filedocumented in this encounter Additional Health Concerns Infection Onset Date Last Indicated Resolved Time COVID-19 Confirmed 03/29/2020 03/29/2020 12:33 AM CLEANING AND MAINTENANCE WORKER COVID-19 Rule Out 02/21/2021 02/21/2021 02/21/2021 1:55 PM CDT COVID-19 Rule Out 09/06/2021 09/06/2021 09/06/2021 7:14 PM CDT COVID-19 Rule Out 08/17/2023 08/17/2023 08/17/2023 12:29 AM CDT Respiratory Rule-Out 08/21/2024 08/21/2024 025 11:22 AM CDT documented as of this encounter Care Teams Taker Off Drying Kiln Relationship Specialty Start Date End Date Aniya Lyon FNP [address] [place] [address] [place] [address] PCP - General Nurse Practitioner Family 07/25/18 documented as of this encounter
--- OUTSIDE RECORDS SUMMARY | 2024-08-26 13:26 | XMS_ITS | Encounter Summary ---
Author Organization [facility] Address [address] [place] [address] Care Team Providers Care Integrity Manager Name Role Phone Aniya Lyon [facility] Primary Care Provider [phone] Encounter Details Date Type Department Care Team (Late st Contact Info) Description 11/23/2019 MyChart Message Enc [address] [place] [phone] Lor Brewer [address] [place] [address] RE: Follow Up/Update Social History [...] Description 12/07/2024 1:20 PM CDT Office Visit [address] [place] [phone] Aniya Lyon [address] [place], [place] [phone] documented as of this encounter Visit Diagnoses Not on filedocumented in this encounter Additional Health Concerns Infection Onset Date Last Indicated Resolved Time COVID-19 Rule Out 12/30/2019 12/30/2019 01/06/2020 7:51 AM CDT COVID-19 Rule Out 03/29/2020 03/29/2020 03/31/2020 7:41 AM SURGICAL SERVICES COORDINATOR COVID-19 Confirmed 03/29/2020 03/29/2020 12:33 AM SURGICAL SERVICES COORDINATOR COVID-19 Rule Out 02/21/2021 02/21/2021 02/21/2021 1:55 PM CDT COVID-19 Rule Out 09/06/2021 09/06/2021 09/06/2021 7:14 PM CDT COVID-19 Rule Out 08/17/2023 08/17/2023 08/17/2023 12:29 AM CDT Respiratory Rule-Out 08/21/2024 08/21/2024 025 11:22 AM CDT documented as of this encounter Care Teams Integrity Manager Relationship Specialty Start Date End Date Aniya Lyon FNP [address] [place] [address] [place] [address] PCP - General Nurse Practitioner Family 07/25/18 documented as of this encounter
--- OUTSIDE RECORDS SUMMARY | 2024-08-26 13:26 | XMS_ITS | Encounter Summary ---
Author Organization [facility] Address [address] [place] [address] Care Team Providers Care Quirk Sander Name Role Phone Aniya Lyon [facility] Primary Care Provider [phone] Encounter Details Date Type Department Care Team (Late Contact Info) Description 11/13/2019 Results Notification [address] [address] Inessa Blue FNP Social History [...] Description 12/07/2024 1:20 PM CDT Office Visit [address] [place] [address] Aniya Lyon FNP [address] [place] [address] documented as of this encounter Visit Diagnoses Not on filedocumented in this encounter Additional Health Concerns Infection Onset Date Last Indicated Resolved Time COVID-19 Rule Out 12/30/2019 12/30/2019 01/06/2020 7:51 AM CDT COVID-19 Rule Out 03/29/2020 03/29/2020 03/31/2020 7:41 AM SENIOR APPLICATIONS ANALYST COVID-19 Confirmed 03/29/2020 03/29/2020 12:33 AM SENIOR APPLICATIONS ANALYST COVID-19 Rule Out 02/21/2021 02/21/2021 02/21/2021 1:55 PM CDT COVID-19 Rule Out 09/06/2021 09/06/2021 09/06/2021 7:14 PM CDT COVID-19 Rule Out 08/17/2023 08/17/2023 08/17/2023 12:29 AM CDT Respiratory Rule-Out 08/21/2024 08/21/2024 025 11:22 AM CDT documented as of this encounter Care Teams Quirk Sander Relationship Specialty Start Date End Date Aniya Lyon FNP [address] [place] [address] [place] [address] PCP - General Nurse Practitioner Family 07/25/18 documented as of this encounter
--- OUTSIDE RECORDS SUMMARY | 2024-08-26 13:26 | XMS_ITS | Clinical Summary ---
Author Organization [facility] Address [facility] [place] [address] Care Team Providers Care Short Order Cook Name Role Phone Phugiulia Aniya Patrick [facility] Primary Care Provider [phone] Allergies Active Allergy Reactions Criticality Noted Date [...] Date Diagnosed Date Bipolar disorder in remission ([facility]/HCC) 08/28/19 24 Attention deficit hyperactiv ity disorder [...] Description 08/21/2024 10:20 AM CDT Office Visit [address] [place] [address] Aniya Lyon FNP Follow Up (3M F/U); Runny Nose; Sore Throat (X2 days/ No fever noted at home) 08/21/2024 Travel 08/14/2024 12:46 PM CDT - 08/14/2024 1:40 PM CDT Hospital Encounter [facility] Women & Infants [address] [place] [address] Marjan Cardenas DO NST (C/O dizziness. ) Discharge Disposition: Home or Self Care (Routine Discharge) 08/07/2024 12:25 PM CDT - 08/07/2024 11:59 PM CDT Hospital Encounter [facility] Ultrasound [address] [place] [address] Jenna Mauro, CNM Discharge Disposition: Home or Self Care (Routine Discharge) 08/07/2024 Travel 07/28/2024 8:18 AM FACILITY SECURITY OFFICER - 07/28/2024 10:15 AM FACILITY SECURITY OFFICER Hospital Encounter [facility] Labor & Delivery [address] [place] [address] Loida Dalal MD NST Discharge Disposition: Home or Self Care (Routine Discharge) 07/03/2024 7:49 AM FACILITY SECURITY OFFICER - 07/03/2024 11:59 PM FACILITY SECURITY OFFICER Hospital Encounter [facility] Ultrasound [address] [place] [address] Loida Dalal MD Discharge Disposition: Home or [...] Abuse Brother Heart Disease Brother Hyperlipidemia Brother [place] Brother Mental Health Brother Alcohol Abuse Father [...] Description 12/07/2024 1:20 PM CDT Office Visit [facility] [address] [place] [address] Aniya Lyon, [facility] [address] [place] [address] Health Maintenance Due Date Last Done Comments [...] topic Hepatitis C Completed 04/27/2024 PHQ-2 (Physician [place]) Completed 08/21/2024 Meningococcal B Vaccine Aged Out [...] this topic Medical Devices Implanted Type Area Mixer Dry Food Products Device Identifier Shelf Expiration Date Model / Serial / Lot Orozco Implanted:Qty: 1 on 01/14/2024 by Casper Hayes DO at [facility] N/A: Esophagus 04/10/2025 / [id number] / [id number] Procedures Procedure Name Priority Date/Time Associated Diagnosis [...] AUTO W/O MICRO STAT 07/28/2024 9:25 AM FACILITY SECURITY OFFICER (HHS/HCC) NONSTRESS TEST Routine 07/28/2024 8:58 AM FACILITY SECURITY OFFICER (HHS/HCC) COMPREHENSIVE METABOLIC PANEL STAT 07/28/2024 8:45 AM FACILITY SECURITY OFFICER (HHS/HCC) CBC W/DIFF AUTOMATED STAT 07/28/2024 8:45 AM FACILITY SECURITY OFFICER (HHS/HCC) US OB COMP >14WKS TA Routine 07/03/2024 9:15 AM FACILITY SECURITY OFFICER Encounter for screening (HHS/HCC) HEPATITIS C ANTIBODY Routine 04/27/2024 4:34 PM FACILITY SECURITY OFFICER Screening for -associate d plasma protein A ([facility]/HCC) from Last 3 Months or Most Recently Relevant to Health Maintenance Results * CORONAVIRUS (COVID-19) INFLUENZA A & B ANTIGEN IA PANEL (08/21/2024) CORONAVIRUS ANTIGEN IA NEGATIVE NEGATIVE [facility] ([facility]), [place] INFLUENZA A NEGATIVE NEGATIVE [facility] (201), [place] INFLUENZA B NEGATIVE NEGATIVE [facility] (201), [place] Internal Control: VALID VALID [facility] (201) [place] NASAL STRUCTURE / Unknown 08/21/2024 Aniya A Comrie DENTAL BILLING SPECIALIST MICROBIOLOGY - GENERAL OR DERABLES Final Result [facility] (201), [address] [address], [place] [phone] * STREP A RAPID (08/21/2024) RAPID STREP TEST NEGATIVE NEGATIVE [facility] (201), [place] Internal Control: VALID VALID [facility] (201), [place] STRUCTURE OF ANTERIOR PORTION OF NECK / Unknown 08/21/2024 Aniyajade Lyon DENTAL BILLING SPECIALIST MICROBIOLOGY - GENERAL OR DERABLES Final Result Performing Organization Address [facility] Co de Phone Number [facility] ([address]), [address] [address], [place] [phone] * ECG 12 lead (08/14/2024 1:15 PM CDT) 08/14/2024 1:15 PM CDT Narrative [facility] ([facility]) RAD - 08/22/2024 6:42 AM CDT [facility] Test Date: 2024-08-14 Pat Name: RONNIE FRANKLIN Department: Room: [facility] Gender: Female Nuclear Licensing Engineer: : 2000 Requested By: MARJAN CARDENAS Order Number: [id number] Reading MD: Zechariah Pickett Measurements Intervals [place] Rate: 88 P: 65 AK: 136 QRS: 73 QRSD: 82 T: 51 QT: 357 QTc: 432 Interpretive Statements SINUS RHYTHM Compared to ECG 08/16/2023 22:06:31 No significant changes Procedure Note Zechariah Pickett MD - 08/22/2024 [facility] Test Date: 2024-08-14 Pat Name: RONNIE FRANKLIN Department: 80 Room: 211A Gender: Female Nuclear Licensing Engineer: : 2000 Requested By: MARJAN CARDENAS Order Number: [id number] Reading MD: Zechariah Pickett Measurements Intervals [place] Rate: 88 P: 65 AK: 136 QRS: 73 QRSD: 82 T: 51 QT: 357 QTc: 432 Interpretive Statements SINUS RHYTHM Compared to ECG 08/16/2023 22:06:31 No significant changes us Marjan Cardenas DO ECG ORDERABLES Final Resu lt [facility] ([facility]) RAD * US OB FOLLOWUP GROWTH (08/07/2024 [...] Narrative 08/07/2024 1:34 PM CDT [facility] [address] [place] [address] EXAMINATION: US OB FOLLOWUP GROWTH INDICATIONS: Encounter for screening, unspecified ([facility]) COMPARISON: 07/03/2024 TECHNIQUE: Obstetric transabdominal ultrasound imaging [...] Procedure Note Dwayne Lee MD - 08/07/2024 [id number] [place] [address] EXAMINATION: US OB FOLLOWUP GROWTH INDICATIONS: Encounter for screening, unspecified ([facility]/HCC) COMPARISON: 07/03/2024 TECHNIQUE: Obstetric transabdominal ultrasound imaging [...] Lee, 08/07/2024 1:26 PM us Jenna Mauro [facility] ULTRASOUND Final R esult * URINALYSIS (07/28/2024 9:25 AM FACILITY SECURITY OFFICER) COLOR (U) YELLOW 07/28/2024 10:02 AM FACILITY SECURITY OFFICER [facility] TRANSPARENCY CLEAR 07/28/2024 10:02 AM FACILITY SECURITY OFFICER [facility] SPECIFIC GRAVITY (U) 1.010 1.002 - 1.030 07/28/2024 10:[address] [facility] U PH 8.0 4.5 - 8.0 07/28/2024 10:[address] [facility] LEUKOCYTES (U) NEGATIVE NEGATIVE 07/28/2024 10:[address] [facility] NITRITES NEGATIVE NEGATIVE 07/28/2024 10:[address] [facility] PROTEIN RANDOM (U) NEGATIVE NEGATIVE 07/28/2024 10:[address] [facility] GLUCOSE (U) NEGATIVE NEGATIVE 07/28/2024 10:[address] [facility] KETONES MG/DL (U) NEGATIVE NEGATIVE 07/28/2024 10:[address] [facility] UROBILINOGEN NORMAL NORMAL EU/DL 07/28/2024 10:[address] [facility] BILIRUBIN (U) NEGATIVE NEGATIVE 07/28/2024 10:[address] [facility] BLOOD (U) NEGATIVE NEGATIVE 07/28/2024 10:[address] [facility] WBC/HPF MICROSCOPIC ANALYSIS NOT DONE ON URINES WITH NEGATIVE BIOCHEMICAL TESTS /HPF 07/28/2024 10:[address] [facility] URINE SPECIMEN OBTAINED BY CLEAN CATCH PROCEDURE / Unknown 07/28/2024 9:25 AM FACILITY SECURITY OFFICER Shaniqua BORJAS URINE ORDERABLES Final Result [facility] [address] [place] [address], [place] [phone] * (ABNORMAL) COMPREHENSIVE METABOLIC PANEL (07/28/2024 8:45 AM FACILITY SECURITY OFFICER) GLUCOSE 81 70 - 99 MG/DL 07/28/2024 9:[address] [facility] BUN 5(L) 7 - 18 MG/DL 07/28/2024 9:[address] [facility] CREATININE S/P/B 0.40(L) 0.55 - 1.02 MG/DL 07/28/2024 9:[address] [facility] SODIUM S/P/B 137 136 - 145 MMOL/L 07/28/2024 9:[address] [facility] POTASSIUM S/P/B 3.9 3.5 - 5.1 MMOL/L 07/28/2024 9:[address] [facility] CHLORIDE S/P/B 103 100 - 108 MMOL/L 07/28/2024 9:[address] [facility] CO2 25.6 21 - 32 MMOL/L 07/28/2024 9:[address] [facility] CALCIUM S/P/B 8.6 8.5 - 10.1 MG/DL 07/28/2024 9:[address] [facility] BILIRUBIN TOTAL S/P/B 0.3 0.2 - 1.2 MG/DL 07/28/2024 9:[address] [facility] Comment: THIS ASSAY IS NOT RECOMMENDED FOR PATIENTS UNDERGOING TREATMENT WITH ELTROMBOPAG DUE TO THE POTENTIAL FOR FALSELY ELEVATED RESULTS. TOTAL PROTEIN S/P/B 6.1(L) 6.4 - 8.2 G/DL 07/28/2024 9:[address] [facility] ALBUMIN S/P/B 2.7(L) 3.4 - 5.0 G/DL 07/28/2024 9:[address] [facility] AST 18 15 - 37 U/L 07/28/2024 9:[address] [facility] ALT 20 14 - 55 U/L 07/28/2024 9:[address] [facility] ALKALINE PHOSPHATASE S/P/B 57 50 - 136 U/L 07/28/2024 9:[address] [facility] ANION GAP 8.4 5 - 15 MMOL/L 07/28/2024 9:[address] [facility] BUN CREATININE RATIO 12.5 6 - 26 07/28/2024 9:[address] [facility] A/G RATIO 0.8(L) 1.0 - 2.0 RATIO 07/28/2024 9:[address] [facility] GFR ESTIMATE >90 >90 ML/MIN/1.7 3 M2 07/28/2024 9:[address] [facility] Comment: NOTE: eGFR is not calculated for patients <18 years of age. This is an estimated GFR calculation using the new CKD EPI creatinine equation without race and so does not require a correction factor for race. This estimated GFR should not be used for calculating drug doses. 07/28/2024 8:45 AM FACILITY SECURITY OFFICER Shaniqua Handy CNM LABORATORY Final Result [facility] [address] [place] [address], [place] [phone] * (ABNORMAL) CBC W/DIFF AUTOMATED (07/28/2024 8:45 AM FACILITY SECURITY OFFICER) WBC 10.15 4.50 - 11.00 x10'3/uL 07/28/2024 9:[address] [facility] RBC 3.31(L) 4.20 - 5.40 x10'6/uL 07/28/2024 9:[address] [facility] HGB 10.9(L) 12.0 - 16.0 G/DL 07/28/2024 9:[address] [facility] HCT 31.8(L) 38.0 - 48.0 % 07/28/2024 9:[address] [facility] MCV 96.1 81.0 - 99.0 FL 07/28/2024 9:[address] [facility] MCH 32.9(H) 27.0 - 31.0 PG 07/28/2024 9:[address] [facility] MCHC 34.3 32.0 - 36.0 G/DL 07/28/2024 9:[address] [facility] RDW 12.6 11.5 - 14.5 % 07/28/2024 9:[address] [facility] PLT 183 130 - 400 x10'3/uL 07/28/2024 9:[address] [facility] MPV 9.8 9.3 - 12.2 FL 07/28/2024 9:[address] [facility] CBC COMMENT AUTOMATED RBC MORPHOLOGY AND PLATELET EVALUATION NORMAL 07/28/2024 9:[address] [facility] NEUTROPHILS % 73.6 % 07/28/2024 9:[address] [facility] LYMPHOCYTES % 15.8 % 07/28/2024 9:[address] [facility] MONOCYTES % 7.4 % 07/28/2024 9:[address] [facility] EOSINOPHILS 2.2 % 07/28/2024 9:[address] [facility] BASOPHILS 0.4 % 07/28/2024 9:[address] [facility] IMMATURE GRANS % 0.6 % 07/29/19 25 9:[address] [facility] NRBC % 0.0 % 07/28/2024 9:[address] [facility] ABS. NEUTROPHILS TOTAL 7.48 1.80 - 7.70 x10'3/uL 07/28/2024 9:[address] [facility] ABS. LYMPHOCYTES 1.60 1.00 - 4.80 x10'3/uL 07/28/2024 9:00 AM FACILITY SECURITY OFFICER [facility] ABS. MONOCYTES 0.75 0.24 - 0.86 x10'3/uL 07/28/2024 9:00 AM FACILITY SECURITY OFFICER [facility] ABS. EOSINOPHILS 0.22 0.04 - 0.36 x10'3/uL 07/28/2024 9:00 AM FACILITY SECURITY OFFICER [facility] ABS. BASOPHILS 0.04 0.01 - 0.08 x10'3/uL 07/28/2024 9:00 AM FACILITY SECURITY OFFICER [facility] ABS. IMMATURE GRANULOCYTES 0.06 0.00 - 0.49 x10'3/uL 07/28/2024 9:00 AM FACILITY SECURITY OFFICER [facility] ABS. NUCLEATED RBC'S 0.00 0.00 - 0.01 x10'3/uL 07/28/2024 9:[address] [facility] 07/28/2024 8:45 AM FACILITY SECURITY OFFICER [facility] Final Result [facility] [address] [place] [address], * US OB COMP >14WKS TA (07/03/2024 9:15 AM FACILITY SECURITY OFFICER) Anatomical Region Laterality Modality Abdomen Computed Tomogra phy, Other 07/03/2024 1:02 PM FACILITY SECURITY OFFICER Impressions 07/03/2024 1:12 PM FACILITY SECURITY OFFICER ===== IMPRESSION: ===== 1. Single live intrauterine [...] 07/03/2024 1:02 PM Narrative 07/03/2024 1:12 PM FACILITY SECURITY OFFICER [address] [place] [address] EXAMINATION: Late OB Ultrasound EXAM DATE/TIME: 07/03/2024 [...] Procedure Note Orion Lau MD - 07/03/[address] [place] [address] EXAMINATION: Late OB Ultrasound EXAM DATE/TIME: 07/03/2024 [...] * HEPATITIS C ANTIBODY (04/27/2024 4:34 PM FACILITY SECURITY OFFICER) HEPATITIS C AB NON-REACTI VE NON-REACTI VE 04/27/2024 8:58 PM FACILITY SECURITY OFFICER [facility] 04/27/2024 4:34 PM FACILITY SECURITY OFFICER Pat Cordoba CNM LABORATORY Final Result [facility] [address] [place] [address], from Last 3 Months or Most Recently Relevant to Health Maintenance Insurance [place] Advance Directives * Full Code (Latest Code Status on File) Date Activated Date Inactivated Comments 08/14/2024 1:00 PM 08/14/2024 4:06 PM * Full Code Date Activated Date Inactivated Comments 07/28/2024 8:58 AM 07/28/2024 12:26 PM Care Teams Short Order Cook Relationship Specialty Start Date End Date Aniya Lyon FNP [address] [place] [address] [place] [address] PCP - General Nurse Practitioner Family 07/25/18
--- OUTSIDE RECORDS SUMMARY | 2024-08-26 13:26 | XMS_ITS | Clinical Summary ---
Author Organization [facility] Address [address] [place] [address] Care Team Providers Care Director Agricultural Services Name Role Phone Corrina Brewer COOPERATIVE EXTENSION AGENT-LAUNDRY BAG PUNCH OPERATOR Primary Care Provider [phone]- [phone] Source Comments [facility],non-owned Affiliates and Associated Physician Practices is amultiple site organization consisting of ambulatory clinics and hospital sitesin [place], [place], [place] and [place]. This disclosure is being madepursuant to the Care Everywhere program and may not contain all information available regarding this patient. Last updated 18.[facility] Allergies Active Allergy Reactions Criticality Noted Date Comments Cinnamon Swelling 08/23/2014 Oral swelling if inhaled Penicillins Urticaria 08/23/2014 Medications Be aware that medications may not be up to date on this document. Always verify current medications with the patient. No known medications Family History Medical History Relation Name Comments ND<55(male) Brother Arrhythmia Neg Hx CVA<55(male) Neg Hx CVA<65(female) Neg Hx Cardiomyopathy Neg Hx Congenital Heart defect Neg Hx Heart Surgery Neg Hx Long QT Syndrome Neg Hx ND<65(female) Neg Hx Marfan Syndrome Neg Hx Pacemaker [...] Comments Blood Pressure 98/42 04/07/2015 8:33 AM LOGGING ENGINEER Pulse 84 04/07/2015 8:33 AM LOGGING ENGINEER Temperature - - Respiratory Rate 16 04/07/2015 8:33 AM LOGGING ENGINEER Oxygen Saturation 97% 04/07/2015 8:33 AM LOGGING ENGINEER Inhaled Oxygen Concentration - - Weight 53.6 kg (118 lb 2.7 oz) 04/07/2015 8:33 A M LOGGING ENGINEER Height 165 cm (5' 4.96 ) 04/07/2015 8:33 AM LOGGING ENGINEER Body Mass Index 19.69 04/07/2015 8:33 AM LOGGING ENGINEER Plan of Treatment Health Maintenance Due Date [...] age to complete this topic Care Teams Director Agricultural Services Relationship Specialty Start Date End Date Corrina Brewer, COOPERATIVE EXTENSION AGENT-LAUNDRY BAG PUNCH OPERATOR PCP - General 08/23/14
--- OUTSIDE RECORDS SUMMARY | 2024-08-26 13:26 | XMS_ITS | Encounter Summary ---
Author Organization [facility] Address [address] [place] [address] Care Team Providers Care Postpartum Nurse Name Role Phone Aniya Lyon [facility] Primary Care Provider [phone] Encounter Details Date Type Department Care Team (Late st Contact Info) Description 12/21/2017 Abstract [facility] Conversion Md, Generic Conversion, Social History Tobacco [...] Description 12/07/2024 1:20 PM CDT Office Visit [facility] [address] [place], [place] [id number] Aniya Lyon [place] [address] [place] [address] documented as of this encounter Visit Diagnoses Not on filedocumented in this encounter Additional Health Concerns Infection Onset Date Last Indicated Resolved Time COVID-19 Rule Out 12/30/2019 12/30/2019 01/06/2020 7:51 AM CDT COVID-19 Rule Out 03/29/2020 03/29/2020 03/31/2020 7:41 AM CONFERENCE SERVICES DIRECTOR COVID-19 Confirmed 03/29/2020 03/29/2020 12:33 AM CONFERENCE SERVICES DIRECTOR COVID-19 Rule Out 02/21/2021 02/21/2021 02/21/2021 1:55 PM CDT COVID-19 Rule Out 09/06/2021 09/06/2021 09/06/2021 7:14 PM CDT COVID-19 Rule Out 08/17/2023 08/17/2023 08/17/2023 12:29 AM CDT Respiratory Rule-Out 08/21/2024 08/21/2024 025 11:22 AM CDT documented as of this encounter Care Teams Postpartum Nurse Relationship Specialty Start Date End Date Aniya Lyon FNP [address] [place] [address] [place] [address] PCP - General Nurse Practitioner Family 07/25/18 documented as of this encounter
--- OUTSIDE RECORDS SUMMARY | 2024-08-26 13:26 | XMS_ITS | Encounter Summary ---
Author Organization [facility] Address [address] [place] [address] Care Team Providers Care Data Entry Clerk Name Role Phone Aniya Lyon [facility] Primary Care Provider [phone] Encounter Details Date Type Department Care Team (Late st Contact Info) Description 08/08/2021 MyChart Message Enc [facility] [address] [place] [address] Aniya Lyon, [facility] [address] [place] [address] [place] Social History Tobacco Use [...] 1:20 PM CDT Office Visit [facility] [address] [place] [address] Aniya Lyon FNP [address] [place] [address] documented as of this encounter Visit Diagnoses [...] documented as of this encounter Care Teams Data Entry Clerk Relationship Specialty Start Date End Date Aniya Lyon FNP [address] [place] [address] PCP - General Nurse Practitioner Family 07/25/18 documented as of this encounter
--- OUTSIDE RECORDS SUMMARY | 2024-08-26 13:26 | XMS_ITS | Encounter Summary ---
Author Organization [facility] Address [address] [place] [address] Care Team Providers Care Acid Extractor Name Role Phone Aniya Lyon [facility] Primary Care Provider [phone] Encounter Details Date Type Department Care Team (Late st Contact Info) Description 08/16/2021 Loyalizehart Message Enc [facility] [address] [place] [address] Aniya Lyon, [facility] [address] [place] [address] New Meds/bleeding Social History Tobacco [...] Description 12/07/2024 1:20 PM CDT Office Visit [facility] [address] [place] [address] Aniya Lyon FNP [address] [place] [id number] documented as of this encounter Visit Diagnoses [...] documented as of this encounter Care Teams Acid Extractor Relationship Specialty Start Date End Date Aniya Lyon FNP [address] [place] [address] PCP - General Nurse Practitioner Family 07/25/18 documented as of this encounter
[2024-08-26 13:43] LABS: Add Urine Microscopic? YES; Appearance Urine Clear (Clear); Bacteria Urine 2+ /hpf; Bilirubin Urine Negative (Negative); Blood Urine Negative (Negative); Color Urine Yellow (Yellow); Glucose Urine UA Negative (Negative); Ketones Urine Negative (Negative); Leukocyte Esterase Ur 2+ LEU/UL (Negative); Need Manual Microscopic Reviewed; Nitrate Urine Negative (Negative); Protein Urine Negative (Negative); RBC Urine 0-2 /hpf (0-2); Specific Grav Ur 1.016 (1.001-1.035); Squamous Epithelial Cell Urine Few /hpf (Few)
--- NOTE | 2024-08-26 13:49 | PC.NURSE ---
Spoke with NAA Coughlin in person. UA labs are pending. FHT reactive with no decels. No contractions noted during NST. Patient reports no contractions during this time. OK to discharge per India Slater.
--- NOTE | 2024-08-26 13:51 | OBADM ---
This patient, Edelmira Shi, admitted to the OB room OB Post 113 for observation. Patient/family oriented to hospital policies and general routines including ID bracelet, bed and alarms, visiting hours, pain management, procedures, bathroom and other care routines, personal items, smoking policy, room service/diet, and visiting hours. Patient/Family are encouraged to report perceived risks to care and to ask questions if they do not understand what they are told or what they should do.
--- NOTE | 2024-08-26 13:58 | PC.NURSE ---
Spoke with NAA Coughlin in person. UA labs are pending. FHT reactive with no decels. No contractions noted during observation tracing. Patient reports no contractions during this time. OK to discharge per India Slater.
--- NOTE | 2024-08-28 07:18 | P.PNOB_ITS ---
OB - Triage/Final Diagnosis Visit Information Date of evaluation: 08/26/24 Reason for evaluation: threatened labor Comments/Additional reasons for admission: I have assessed the risk for this patient, Edelmira Shi, and determined that she would benefit from observation care. Evaluation Laboratory results: Laboratory Tests 08/26/24 12:30 Urine Color Yellow Urine Appearance Clear Urine pH 8.0 Ur Specific [place] 1.016 Urine Protein Negative Urine Glucose (UA) Negative Urine Ketones Negative Ur Blood (Man) Negative Urine Nitrate Negative Urine Bilirubin Negative Urine Urobilinogen 1.0 Add Ur Microanalysis Reviewed Leukocyte Esterase Rfl 2+ H Urine RBC 0-2 Urine WBC 11-20 H Ur Squamous Epith Cells Few Urine Bacteria 2+ H Urine Casts 3-5
== END 2024-08-26 14:01 | disposition home or self-care (01) ==
LOC: ANHOBPP 12:02
PROVIDERS: Advanced Practice Midwife; Admitting Provider Obstetrics & Gynecology; PCP Registered Nurse; Visit Provider Obstetrics & Gynecology
DX: O47.02 False labor before 37 completed weeks of gestation, second trimester (principal); Z3A.27 27 weeks gestation of pregnancy
CPT/HCPCS: 81001; 87086; G0378; G0379

== ENCOUNTER 2024-10-21 14:37 | Outpatient (CLI) | payer OTHER, SELFPAY ==
--- OUTSIDE RECORDS SUMMARY | 2024-10-21 14:57 | XMS_ITS | Data Portability ---
Author Organization [facility] Address [address] [place] [address] Care Team Providers Care Painter Name Role Phone RAHEL VIDAL Primary Care Provider Assessment Encounter Date Assessment Date Assessment LastModified by Organization Details LastModified Time 10/21/2024 10/21/2024 Patient is 35___weeks . Discussed plan. Not available 10/21/2024 15:03:45 Plan of Treatment Reminders Order Date Submit Date Provider Last Modified By Organization Details Last Modified Time Details Appointments U/S OB BPP 2024 12:30P M ULTRASOUND Not available Not available Not available NST 2024 01:00P M NST SCHEDULE Not available Not available Not available OB ROUTINE 2024 01:30P M Lisa Slater CNM Not available Not available Not available INDUCTI ON 2024 05:00P M Lisa Slater CNM Not available Not available Not available U/S OB BPP 2024 10:30A M ULTRASOUND Not available Not available Not available NST 2024 11:00A M NST SCHEDULE Not available Not available Not available OB ROUTINE 2024 11:30A M Lisa Slater CNM Not available Not available Not available U/S OB BPP 2024 10:30A M ULTRASOUND Not available Not available Not available NST 2024 11:00A M NST SCHEDULE Not available Not available Not available OB ROUTINE 2024 11:30A M Lisa Nohemy, CNM Not available Not available Not available Lab bile acids, total, serum 2024 025 [facility] (Lab), [address] [facility], [place], [address], 10/21/2024 14:54:39 CMP, serum or plasma 2024 025 [facility] (Lab), [address], [place], [address], 10/21/2024 14:54:39 Referral None recorde d. Procedures None recorde d. Surgeries None recorde d. Imaging US, obstetr ic, biophys ical profile + non-str ess test 2024 [address], [address], [place], [address], 10/21/2024 14:12:43 US, obstetr ic, follow- up [address], [address], [address], [place], [address], 10/21/2024 14:12:43 non-str ess test 2024 [address] der[address], [address], [place], [address], 10/15/2024 01:55:38 US, obstetr ic, biophys ical profile + non-str ess test 2024 025 [email or web address] [address], [address], [place], [address], 10/15/2024 18:29:56 Medication Orders None recorde d. Patient TargetsNo targets recorded. Patient InstructionsNo instructions recorded. Reason for Referral None Reported. Results Created Date Observation Date Name Description Value Unit Range Abnormal Flag Note LastModifiedBy Organization Detail LastModifiedTime 09/26/1909/25/2024 BILE ACIDS , TOTAL bile acids, total 7 umol/ L 0-10 Test Perfo rmed by: Jono russo [address] [address] Not Available [facility] (Lab) [address] [facility], [place], [address], 09/26/2024 12:00:15 10/01/19 25 09/30/2024 CMP(C OMPRE HENSI VE METAB OLIC PANEL ) sodium 135 mmol/ L 133-14 6 Not Available [facility] (Lab) [address] [facility] [address] [facility], [place], [address], 10/01/2024 12:33:16 10/01/19 25 09/30/2024 CMP(C OMPRE HENSI VE METAB OLIC PANEL ) potassium 3.9 mmol/ L 3.5-5. 1 Not Available [facility] (Lab) [address] [place], [address], 10/01/2024 12:33:16 10/01/19 25 09/30/2024 CMP(C OMPRE HENSI VE METAB OLIC PANEL ) chloride 103 mmol/ L 98-107 Not Available [facility] (Lab) [address] [place], [address], 10/01/2024 12:33:16 10/01/19 25 09/30/2024 CMP(C OMPRE HENSI VE METAB OLIC PANEL ) carbon dioxide 27 mmol/ L 21-31 Not Available [facility] (Lab) [address] [place], [address], 10/01/2024 12:33:16 10/01/19 25 09/30/2024 CMP(C OMPRE HENSI VE METAB OLIC PANEL ) anion gap 5 mmol/ L 4-13 Not Available [facility] (Lab) [address] [place], [address], 10/01/2024 12:33:16 10/01/19 25 09/30/2024 CMP(C OMPRE HENSI VE METAB OLIC PANEL ) blood urea nitrogen 8 mg/dL 7-25 Not Available [facility] (Lab) [address] [facility] [address], [place], [address], 10/01/2024 12:33:16 10/01/19 25 09/30/2024 CMP(C OMPRE HENSI VE METAB OLIC PANEL ) creatinine 0.51 mg/dL 0.60-1 .30 low Not Available [facility] (Lab) [address] [facility], [place], [address], 10/01/2024 12:33:16 10/01/19 25 09/30/2024 CMP(C OMPRE HENSI VE METAB OLIC PANEL ) egfrcr (CKD-epi 2020) >90 mL/mi n/1.7 3_m2 >=60 Not Available [facility] (Lab) [address] [facility], [place], [address], 10/01/2024 12:33:16 10/01/19 25 09/30/2024 CMP(C OMPRE HENSI VE METAB OLIC PANEL ) calcium 8.8 mg/dL 8.3-10 .5 Not Available [facility] (Lab) [address] [facility], [place], [address], 10/01/2024 12:33:16 10/01/19 25 09/30/2024 CMP(C OMPRE HENSI VE METAB OLIC PANEL ) glucose 91 mg/dL 70-100 Not Available [facility] (Lab) [address] [place], [address], 10/01/2024 12:33:16 10/01/19 25 09/30/2024 CMP(C OMPRE HENSI VE METAB OLIC PANEL ) protein, total 6.0 g/dL 6.4-8. 3 low Not Available [facility] (Lab) [address] [facility], [place], [address], 10/01/2024 12:33:16 10/01/19 25 09/30/2024 CMP(C OMPRE HENSI VE METAB OLIC PANEL ) albumin 3.6 g/dL 3.5-5. 0 Not Available [facility] (Lab) [address] [facility], [place], [address], 10/01/2024 12:33:16 10/01/19 25 09/30/2024 CMP(C OMPRE HENSI VE METAB OLIC PANEL ) ALT 11 units /L 9-43 Not Available [facility] (Lab) [address] [facility], [place], [address], 10/01/2024 12:33:16 10/01/19 25 09/30/2024 CMP(C OMPRE HENSI VE METAB OLIC PANEL ) alkaline phosphatase 126 units /L 34-104 high Not Available [facility] (Lab) [address] [facility], [place], [address], 10/01/2024 12:33:16 10/01/19 25 09/30/2024 CMP(C OMPRE HENSI VE METAB OLIC PANEL ) AST 15 units /L 13-39 Not Available [facility] (Lab) [address] [place], [address], 10/01/2024 12:33:16 10/01/19 25 09/30/2024 CMP(C OMPRE HENSI VE METAB OLIC PANEL ) bilirubin, total 0.3 mg/dL 0.2-1. 2 Not Available [facility] (Lab) [address] [place], [address], 10/01/2024 12:33:16 10/01/19 25 09/30/2024 BILE ACIDS , TOTAL bile acids, total 13 umol/ L 0-10 high Test Perfo rmed by: Jono russo [facility] [address] [address] Not Available [facility] (Lab) [address] [place], [address], 10/01/2024 12:33:17 10/15/19 25 10/14/2024 CMP(C OMPRE HENSI VE METAB OLIC PANEL ) sodium 135 mmol/ L 133-14 6 Not Available [facility] (Lab) [address] [facility], [place], [address], 10/15/2024 17:18:03 10/15/19 25 10/14/2024 CMP(C OMPRE HENSI VE METAB OLIC PANEL ) potassium 4.0 mmol/ L 3.5-5. 1 Not Available [facility] (Lab) [address] [facility], [place], [address], 10/15/2024 17:18:03 10/15/19 25 10/14/2024 CMP(C OMPRE HENSI VE METAB OLIC PANEL ) chloride 105 mmol/ L 98-107 Not Available [facility] (Lab) [address] [facility], [place], [address], 10/15/2024 17:18:03 10/15/19 25 10/14/2024 CMP(C OMPRE HENSI VE METAB OLIC PANEL ) carbon dioxide 24 mmol/ L 21-31 Not Available [facility] (Lab) [address] [facility], [place], [address], 10/15/2024 17:18:03 10/15/19 25 10/14/2024 CMP(C OMPRE HENSI VE METAB OLIC PANEL ) anion gap 6 mmol/ L 4-13 Not Available [facility] (Lab) [address] [place], [address], 10/15/2024 17:18:03 10/15/19 25 10/14/2024 CMP(C OMPRE HENSI VE METAB OLIC PANEL ) blood urea nitrogen 5 mg/dL 7-25 low Not Available [facility] (Lab) [address] [place], [address], 10/15/2024 17:18:03 10/15/19 25 10/14/2024 CMP(C OMPRE HENSI VE METAB OLIC PANEL ) creatinine 0.44 mg/dL 0.60-1 .30 low Not Available [facility] (Lab) [address] [place] [facility] [place], [address], 10/15/2024 17:18:03 10/15/19 25 10/14/2024 CMP(C OMPRE HENSI VE METAB OLIC PANEL ) egfrcr (CKD-epi 2020) >90 mL/mi n/1.7 3_m2 >=60 Not Available [facility] (Lab) [address] [facility], [place], [address], 10/15/2024 17:18:03 10/15/19 25 10/14/2024 CMP(C OMPRE HENSI VE METAB OLIC PANEL ) calcium 8.7 mg/dL 8.3-10 .5 Not Available [facility] (Lab) [address] [facility], [place], [address], 10/15/2024 17:18:03 10/15/19 25 10/14/2024 CMP(C OMPRE HENSI VE METAB OLIC PANEL ) glucose 63 mg/dL 70-100 low Not Available [facility] (Lab) [address] [facility], [place], [address], 10/15/2024 17:18:03 10/15/19 25 10/14/2024 CMP(C OMPRE HENSI VE METAB OLIC PANEL ) protein, total 6.1 g/dL 6.4-8. 3 low Not Available [facility] (Lab) [address] [place], [address], 10/15/2024 17:18:03 10/15/19 25 10/14/2024 CMP(C OMPRE HENSI VE METAB OLIC PANEL ) albumin 3.5 g/dL 3.5-5. 0 Not Available [facility] (Lab) [address] [place], [address], 10/15/2024 17:18:03 10/15/19 25 10/14/2024 CMP(C OMPRE HENSI VE METAB OLIC PANEL ) ALT 10 units /L 9-43 Not Available [facility] (Lab) [address] [facility], [place], [address], 10/15/2024 17:18:03 10/15/19 25 10/14/2024 CMP(C OMPRE HENSI VE METAB OLIC PANEL ) alkaline phosphatase 180 units /L 34-104 high Not Available [facility] (Lab) [address] [facility], [place], [address], 10/15/2024 17:18:03 10/15/19 25 10/14/2024 CMP(C OMPRE HENSI VE METAB OLIC PANEL ) AST 15 units /L 13-39 Not Available [facility] (Lab) [address] [facility], [place], [address], 10/15/2024 17:18:03 10/15/19 25 10/14/2024 CMP(C OMPRE HENSI VE METAB OLIC PANEL ) bilirubin, total 0.3 mg/dL 0.2-1. 2 Not Available [facility] (Lab) [address] [facility], [place], [address], 10/15/2024 17:18:03 10/15/19 25 10/14/2024 BILE ACIDS , TOTAL bile acids, total 18 umol/ L 0-10 high Test Perfo rmed by: Jono hallman rn Memnathaniel [email or web address] [facility] [address] [address] Not Available [facility] (Lab) [address] [facility], [place], [address], 10/15/2024 17:18:04 10/15/19 25 10/14/2024 CULTU RE: GROUP B STREP SCREE N, REFLE X SUSCE PTIBI LITY result report SEE RESULT S BELOW Test: Cultu re: Group B Strep , Refle x Susce ptibi lity ([facility]/ [facility] ) Speci men Sourc e: Vagin a/Rec sanjeev Speci men Type: Vagin al/Re ctal Speci men Date: 2024 1517 Resul t Date: 2024 1411 Resul t Statu s: Final resul t Abnor mal: No Resul sundarg Lab: [facility] [address] [facility] [address] Tel: CULTU RE ----- ----- ----- --- No Group B strep isola pan at 2 days (xiao ctive broth enhan cemen t) Not Available [facility] (Lab) [address] [facility], [place], [address], 10/17/2024 15:14:29 09/26/19 25 09/25/2024 US, obste tric, follo w-up No observ ation [facility] ed. [email or web address] [address], [place], [address], 09/25/2024 17:25:47 09/26/19 25 09/25/2024 US, obste tric, follo w-up No observ ation record ed. [email or web address] [address] [facility], [place], [address], 09/29/2024 06:36:16 09/27/19 25 09/25/2024 non-s tress test No observ ation record ed. [facility] [address], [place], [address], 09/26/2024 08:53:04 10/01/19 25 09/30/2024 US, pinky tric, bioph ysica l profi le + non-s tress test No observ ation record ed. [email or web address] [facility], [place], [address], 09/30/2024 17:26:21 10/01/19 25 09/30/2024 US, obste tric, follo w-up No observ ation record ed. [email or web address] [address], [place], [address], 10/02/2024 07:04:39 10/01/19 25 09/30/2024 non-s tress test No observ ation record ed. [email or web address] [facility], [place], [address], 09/30/2024 20:21:07 10/01/19 25 09/30/2024 non-s tress test No observ ation record ed. [email or web address] [facility], [place], [address], 09/30/2024 22:01:38 10/08/19 25 10/07/2024 US, obste tric, bioph ysica l profi le + non-s tress test No observ ation record ed. [email or web address] [address], [place], [address], 10/07/2024 18:17:09 10/08/19 25 10/07/2024 US, obste tric, bioph ysica l profi le + non-s tress test No observ ation record ed. [email or web address] [address] [facility], [place], [address], 10/07/2024 15:18:34 10/08/19 25 10/07/2024 non-s tress test No observ ation record ed. [facility] [address], [place], [address], 10/07/2024 20:27:17 10/08/19 25 10/07/2024 non-s tress test No observ ation record ed. [email or web address] [facility], [place], [address], 10/07/2024 20:29:44 10/08/19 25 09/25/2024 non-s tress test No observ ation record ed. [email or web address] Not Available 10/07 20:46:45 10/15/19 25 10/15/2024 US, obste tric, bioph ysica l profi le + non-s tress test No observ ation record ed. [email or web address] [address], [place], [address], 10/15/2024 11:29:30 10/15/19 25 10/14/2024 US, obste tric, follo w-up No observ ation record ed. [email or web address] [address], [place], [address], 10/20/2024 22:40:55 10/15/19 25 10/14/2024 non-s tress test No observ ation record ed. [email or web address] [address], [place], [address], 10/14/2024 15:43:20 10/22/19 US, obste tric, bioph ysica l profi le + non-s tress test No observ ation record ed. [email or web address] [address], [place], [address], 10/21/2024 14:04:56 10/22/19 US, obste tric, follo w-up No observ ation record ed. [email or web address] [address], [place], [address], 10/21/2024 14:05:18 10/22/19 25 10/21/2024 US, obste tric, bioph ysica l profi le + non-s tress test No observ ation record ed. [email or web address] [address], [place], [address], 10/21/2024 14:09:09 Result Notes None recorded. Problems Name Problem SNOMED Code Status Onset Date Resolution Date Notes Provider Name and Address Organization Details Recorded Time History of seizure Active none in last 5 years/str ess related Lisa Slater CNM [address], [place], [address], [facility] 5 15:16:44 Migraine 00005640 Active stress related Lisa Slater CNM [address], [place], [address], [facility] 5 15:16:30 Mixed anxiety and depressiv e disorder 555298936 Active has f/u with psychiatr ist Lisa Slater CNM [address], [place], [address], [facility] 5 15:16:25 15117904 Active 2024 Luli thurman, [facility] 5 15:03:31 History of seizure Active none in last 5 years/str ess related Lisa Slater CNM [address], [place], [address], [facility] 5 15:16:44 Migraine 31108510 Active stress related Lisa Slater CNM [address], [place], [address], [facility] 5 15:16:30 Mixed anxiety and depressiv e disorder 333511585 Active has f/u with psychiatr ist Lisa Slater CNM [address], [place], [address], [facility] 5 15:16:25 Bipolar disorder 58113295 Active no current medicatio n, vraylar prior to Lisa Slater CNM [address], [place], [address], [facility] 5 15:16:00 Pruritic disorder of skin Active 2024 bile acids/cmp ordered 09/11 ursodiol 300mg BID bile acids 7 Rpt labs started nst 32 wks increase to 500mg bid rpt next visit Lisa Slater CNM [address], [place], [address], [place] [facility] 5 16:23:13 Cholestas is 90592602 Active 2024 Ursodiol increased to 500mg BID Rebecca Broderick [facility], [facility] 5 16:41:33 Cholestas is 91554778 Active 2024 Ursodiol increased to 500mg BID Rebecca Broderick [facility], [facility] 16:41:33 Problem Notes None recorded. Procedures Surgical History Date Name Laterality Status Provider Name and Address Organization Details Recorded Time 09/26/19 25 endoscopy completed [facility] 09/25/2024 15:17:22 09/26/19 25 endoscopy completed [facility] 09/25/2024 15:17:47 03/18/20 23 Colonoscopy completed [facility] 08/28/2024 15:02:38 03/15/20 23 completed [facility] 08/28/2024 15:02:37 03/15/20 23 Date of Last Colonoscopy completed [facility] 08/28/2024 15:02:37 06/15/19 22 Date of Last Pap Smear completed [facility] 08/28/2024 15:02:37 Imaging Results None recorded. Procedure Notes None recorded. Medical Equipment None Reported. Allergies Allergen ID Allergen Name Allergen Category Reaction Reaction Severity Criticality Documentation Date Start Date Code Code System Note Provider Name and Address Organization Details Recorded Time 69263 cinnamon preparati on food,medi cation hives mild Not available 08/28/2024 81595 5 RxNorm Luli Rivas [facility], [facility] 5 15:02:37 96125 Compazine medicatio n anaphylax is severe Not available 08/28/2024 23055 6 RxNorm Luli Rivas [facility], [facility] 5 15:02:37 08321 Bactrim medicatio n anaphylax is severe Not available 08/28/2024 57311 9 RxNorm Luli Rivas [facility], [facility] 5 15:02:37 97982 wool environme nt hives mild Not available 08/28/2024 32633 UNK Luli Rivas [facility], [facility] 5 15:02:37 09351 Penicilli n Not available hives moderate Not available 08/28/2024 61759 RxNorm Luli Rivas [facility] 15:02:37 Medications Name Sig Start Date Stop Date Status Note LastModified by Organization Details LastModified Time Macrobid 100 mg capsule Take 1 capsule every 12 hours by oral route as directed for 7 days. 09/25 completed Not Available Not Available Not Available ursodiol 300 mg capsule Take 1 capsule twice a day by oral route as directed for 30 days. 10/14 completed Not Available Not Available Not Available hydroxyzine HCl 25 mg tablet Take 1 tablet every day by oral route at bedtime, for itching. 2024 active Not Available Not Available Not Avai lable ursodiol 500 mg tablet active Not Available Not Available Not Available + Iron active Not Available Not Available Not Available Vitals Date Recorded Body weight Body mass index (BMI) Body height Systolic blood pressure Diastolic blood pressure Provider Name and Address Organization Details Last Updated DateTime 10/14/2024 23140.37 157 g 26.6 kg/m2 165.74 cm 111 mm[Hg] 74 mm[Hg] Luli Rivas [facility] 15:43:38 Date Recorded Body height Body mass index (BMI) Body weight Systolic blood pressure Diastolic blood pressure Provider Name and Address Organization Details Last Updated DateTime 10/14/2024 165.74 cm 26.6 kg/m2 19904.37 g 111 mm[Hg] 74 mm[Hg] Alexus Chris [facility] 15:41:29 Date Recorded Body height Body mass index (BMI) Body weight Systolic blood pressure Diastolic blood pressure Provider Name and Address Organization Details Last Updated DateTime 10/21/2024 165.74 cm 26.8 kg/m2 11383.96 g 112 mm[Hg] 72 mm[Hg] Luli Rivas [facility] 14:46:33 Social History Question Answer Notes LastModified by Organizat ion Details LastModified Time Tobacco Smoking Status Never Smoker Luli Rivas [facility] 10/07/2024 15:53:49 Do You Have An Advance Directive? No [email or web address] Information n ot available 08/28/2024 If You Are , What Was Your Level Of Alcohol Consumption Prior To ? Occasional [email or web address] Information not available 10/07/2024 How Many Years Have You Consumed Alcohol? 7 [email or web address] Information not available 08/28/2024 Are You Blind Or Do You Have Difficulty Seeing? No [email or web address] Information n ot available 08/28/2024 What Is Your Level Of Caffeine Consumption? Occasional [email or web address] Information not available 08/28/2024 How Much Tobacco Do You Chew? None [email or web address] Information not available 08/28/2024 In The 14 Days Before Symptom Onset, Have You Had Close Contact With A Laboratory-confirm ed COVID-19 While That Case Was Ill? No [email or web address] Information n ot available 08/28/2024 In The 14 Days Before Symptom Onset, Have You Had Close Contact With A Person Who Is Under Investigation For COVID-19 While That Person Was Ill? No [email or web address] Information not available 08/28/2024 Have You Been To An Area Known To Be High Risk For COVID-19? No [email or web address] Information not available 08/28/2024 Are You Deaf Or Do You Have Serious Difficulty Hearing? No [email or web address] Information not available 08/28/2024 What Type Of Diet Are You Following? REGULAR Information n ot available 08/28/2024 What Is The Highest Grade Or Level Of School You Have Completed Or The Highest Degree You Have Received? [id number] [email or web address] Information not available 08/28/2024 Are There Any Guns Present In Your Home? Yes [email or web address] Information not available 08/28/2024 Do You Use Protection During Sex? No [email or web address] Information not available 08/28/2024 Do You Use Your Seat Belt Or Car Seat Routinely? Yes [email or web address] Information not available 08/28/2024 Do You Have Smoke And Carbon Monoxide Detectors In Your Home? Yes [email or web address] Information not available 08/28/2024 How Much Tobacco Do You Smoke? No [email or web address] Information not available 08/28/2024 Do You Use Sunscreen Routinely? Yes [email or web address] Information not available 08/28/2024 Have You Used IV Drugs? No [email or web address] Information not available 08/28/2024 Do You Have Difficulty Walking Or Climbing Stairs? No [email or web address] Information not available 09/30/2024 Sex: Unknown Functional Status Question Answer Note LastModified by Organizat ion Details LastModified Time Do you use any illicit or recreational drugs? No [email or web address] Information not available 08/28/2024 What is your level of alcohol consumption? None [email or web address] Information not available 10/07/2024 Are you able to walk? YESWOREST [email or web address] Information not available 08/28/2024 Are you able to care for yourself? 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 No [email or web address] Information not available 09/30/2024 What is your exercise level? Moderate Information not available 08/28/2024 Mental Status Question Answer Note LastModified by Organization D etails LastModified Time Do you feel stressed (tense, restless, nervous, or anxious, or unable to sleep at night)? [id number] [email or web address] Information not available 08/28/2024 Family History Relationship Description Onset Age of this Age Resolved Age Notes LastModified by Organization Details LastModified Time Brother Anxiety disorder [email or web address] Not available 08/28 15:02:37 Brother Depressive disorder [email or web address] Not available 08/28 15:02:37 Brother Substance abuse [email or web address] Not available 08/28 15:02:37 Brother Mental disorder [email or web address] Not available 08/28 15:02:37 Father Anxiety disorder [email or web address] Not available 08/28 15:02:37 Father Depressive disorder [email or web address] Not available 08/28 15:02:37 Father Substance abuse [email or web address] Not available 08/28 15:02:37 Mother Disorder of thyroid gland [email or web address] Not available 08/28 15:02:37 Mother Anxiety disorder [email or web address] Not available 08/28 15:02:37 Mother Depressive disorder [email or web address] Not available 08/28 15:02:37 Mother High risk [email or web address] Not available 08/28 15:02:37 Maternal Aunt High risk [email or web address] Not available 08/28 15:02:37 Maternal Grandmother Depressive disorder Not available 08/28 15:02:37 Maternal Grandmother High risk [email or web address] Not available 08/28 15:02:37 Sister Anxiety disorder [email or web address] Not available 08/28 15:02:37 Sister Depressive disorder [email or web address] Not available 08/28 15:02:37 Sister Mental disorder [email or web address] Not available 08/28 15:02:37 Paternal Grandfather Malignant tumor of colon [email or web address] Not available 08/28 15:02:37 Medical History Condition Response Allergies (Food, seasonal, environmental ) Y Other N Breast Cancer N Drug/Latex Allergies/Reactions Y Blood Transfusion N Dermatologic Disorders N Lung Disease N Defects or Inherited Disease N Breast Problem N Gestational Diabetes N Hematologic disorders N Anesthesia Complications N History of STI N Deep Vein Thrombosis N Polycystic ovary syndrome N Anxiety Disorder Y Autoimmune disease N Arthritis N Infertility N Polyps N Acid Reflux (GERD) N History of abnormal pap N Cancer N Stroke N Varicosities N Neurologic/Epilepsy Y Endometriosis Y High Cholesterol N Headaches Y Fibromyalgia N Kidney Disease N Heart Problems N Kidney or Bladder Problems N Thyroid Problems N GI Problems Y Eating Disorder N Anemia N Art (IVF or FET) N Psychiatric Illness N Ovarian Cancer N Diabetes N Pulmonary (TB, Asthma) N Hepatitis/Liver Disease Y No Past Medical History Y Eczema N Urinary Tract Infection N Abuse/Domestic Violence N Asthma N Trauma/Violence N Depression/ depression Y Heart Disease N Pre-Eclampsia N Hypertension N Osteoporosis N Thrombophilias N Gynecological History Statement/Question Response Date of Last Mammogram Date of LMP 02/01/2024 N On BCP's at Conception? N STIs/STDs N Was last menstrual period normal Y HPV Vaccine Y Duration of Flow (days) 6 Current Control Method Date of control 12/25/2023 Date of Last Colonoscopy 03/15/2023 Frequency of Cycle (Q days) 28 Sexually Active? Y Date of DEXA bone scan Age of first menstrual cycle 13 Date of Last Pap Smear 06/15/2021 Sexual Problems? N LMP Definite Desired Control Method BCPs 03/15/2023 N Obstetrics History GPAL:G 1 P 0 0 0 0 Type Value Living 0 Total 1 Past Encounters Encounter ID Performer Location Encounter Start Date Encounter Closed Date Diagnosis/Indication Diagnosis SNOMED-CT Code Diagnosis ICD10 Code Diagnosis Note [id number] Jose Rosales MD [facility] [address] [address] 08/28/2024 13:16:23 08/28/2024 14:11:05 Suspected abnormality affecting management of mother [id number] 1723823 O35.8XX0 O26.849 Z3A.28 [id number] Lisa Slater CNM [facility] [address] [address] 08/28/2024 13:17:07 08/28/2024 15:22:40 Routine care 762573053 Z34.93 Venereal d isease screening 537226747 Z11.3 Gestation period, 28 weeks 41536197 Z3A.28 [id number] Jose Rosales MD [facility] [address],[place] [address] 09/10/2024 14:54:34 09/10/2024 15:31:12 Third trimester 24924232 Z34.03 [id number] Jose Rosales MD [facility] [address],[place] [address] 09/11/2024 12:25:13 09/11/2024 12:59:49 Urinary tract infectious disease 27036642 N39.0 [id number] Jose Rosales MD [facility] [address],[place] [address] 09/25/2024 14:21:01 09/25/2024 15:10:36 Observational assessment 625231620 Z03.74 O35.8XX0 Z3A.32 [id number] [facility] [address],[place] [address] 09/25/2024 14:21:17 09/28/2024 11:02:01 Gestation period, 32 weeks 0345817 Z3A.32 continue vitamin [id number] Lisa Slater CNM [facility] [address],[place] [address] 09/25/2024 15:35:42 09/28/2024 11:08:31 Cholecystitis 91474183 K81.9 [id number] Jose Rosales MD [facility] [address],[place] [address] 09/30/2024 14:40:20 09/30/2024 15:56:51 Cholestasis of 225818385 O26.643 Z3A.32 [id number] Lisa Slater CNM [facility] [address],[place] [address] 09/30/2024 14:40:40 10/01/2024 11:01:52 Cholestasis of 149983579 O26.643 [id number] Lisa Slater CNM [facility] [address],[place] [address] 09/30/2024 14:41:04 09/30/2024 17:49:41 Gestation period, 32 weeks 1377574 Z3A.32 continue vitamin Cholestasi s of 966351024 O26.643 [id number] Jose Rosales MD [facility] [address],[place] [address] 10/07/2024 13:59:18 10/07/2024 16:02:57 Cholestasis of 195455005 O26.643 Z3A.33 [id number] Lisa Slater [facility] [address],[place] [address] 10/07/2024 13:59:32 10/08/2024 12:05:24 Cholestasis of 540607085 O26.643 [id number] Lisa Slater [facility] [address],[place] [address] 10/07/2024 13:59:47 10/07/2024 16:52:20 Cholestasis of 633241281 O26.643 Gestation period, 33 weeks 68962371 Z3A.33 [id number] Jose Rosales MD [facility] [address],[place] [address] 10/14/2024 14:20:15 10/14/2024 15:04:32 Cholestasis of 420552482 O26.643 Z3A.34 [id number] Lisa Slater [facility] [address],[place] [address] 10/14/2024 14:20:39 10/14/2024 15:49:00 Cholestasis of 681899569 O26.643 [id number] [facility] [address],[place] [address] 10/14/2024 14:20:55 10/14/2024 15:57:46 Gestation period, 34 weeks 67511260 Z3A.34 screening 2437 86087 Z36.85 [id number] Jose Rosales MD [facility] [address] [address] 10/21/2024 13:32:01 10/21/2024 14:12:42 Cholestasis of 714746004 O26.643 Z3A.35 [id number] [facility] [address] [address] 10/21/2024 13:33:42 10/21/2024 15:07:42 Itching 683680113 L29.9 Gestation period, 35 weeks 74064801 Z3A.35 Health Concerns Section Related Observation LastModified by Organization Detai ls LastModified Time None Recorded Concern Status LastModified by Organization Details LastModified Time None Recorded Advance Directives Directive N: Payers Encounter Date Sequence Insurance Name Policy Number Policy Silva Covered Member ID Silva Member ID Guarantor Name 10/14/2024 1 [employer] [facility] [facility] [place] ([place]ID H[place]) [id number] Edelmira Rench [id number] Edelmira Rench 10/14/2024 1 [facility] (MEDICAID HMO) [id number] Edelmira Rench [id number] Edelmira Rench 10/21/2024 1 [employer] [facility] [place] [id number] Edelmira Rench [id number] Edelmira Rench 10/21/2024 1 [employer] [facility] [place] [id number] 0003 Edelmira Rench [id number] Edelmira Rench OBGyn Episode Ob Episode Information Episode Created Date Number of Fetuses Patient Bloodtype Patient rh Status Prepregnancy Weight lbs Domestic Partner Domestic Partner Phone Father Name Employment Program Representative Status 08/29/19 25 1 A Positive Young Rasheed OPEN Fetus Data First Name Last Name Admitted to NICU Weight (g) Sex Living Outcome Pediatric Complications Fetus ID Race Codes Race Delivery Type [id number] Problems Problem Notes mild right pylectasisvenous lakes rpt 4 weeksIOL scheduled 10/27/24 1700 Problem Name Start Date End Date Resolution Snomed Code Not e History of seizure 4301844761 none in last 5 years/stress related Bipolar disorder 47725322 no current medication, vraylar prior to Pruritic disorder of skin 09/11/2024 6086478513 bile acids/cmp ordered 09/11 ursodiol 300mg BID bile acids 7 Rpt labsstarted nst 32 wksincrease to 500mg bid rpt next visit Cholestasis 10/07/2024 29003339 Ursodio l increased to 500mg BID Migraine 99224203 stress rel ated Mixed anxiety and depressive disorder 794789938 has f/u with psychiatrist Mynor Calculation Initial Mynor Date Initial Exam Date Initial Exam Provider Initial Ultrasound Date Last Menstrual Period Date Ultra Sound Weeks Gestation 08/28/2024 Lisa Slater 02/01/2024 0 Eighteen To Twenty Week Mynor Update Ultra Sound Date Fundal Height At Umbil Quickening Date Ultra Sound Latest Weeks Gestation Final Mynor Confirmed By Final Mynor Confirmed Date Final Mynor Date Ultra Sound Latest Days Gestation 0 11/21/19 25 0 Pre- Flowsheet Flowsheet Date 08/28/2024 Christianson Score Blood Edema Fundus Height Fundus Units Glucose Ketones Leukocytes Nitrite Labor Signs Protein Cervic Dilation Cervic Effacement Cervic Station neg none none trace Type Weight in lbs Pre/Post Dialysis Refused Weight 151.771781615895 BP Diastolic BP Location Tested BP Systolic BP Type 66 99 Fetus Heart Rate Present Fetus Movement A Yes Comments pt is transfer of care from [facility], reviewed medical history, no current meds other than , disc risk for pp depression, has plan with pcp and psychiatrist , resume routine careUS venous nguyen mild pylectasis Flowsheet Date 09/10/2024 Christianson Score Blood Edema Fundus Height Fundus Units Glucose Ketones Leukocytes Nitrite Labor Signs Protein Cervic Dilation Cervic Effacement Cervic Station Type Weight in lbs Pre/Post Dialysis Refused Weight 154.65430166075 BP Diastolic BP Location Tested BP Systolic BP Type 67 L arm 102 sitting Fetus Heart Rate Present A 145 Present Fetus Movement A Yes Comments no complaints, no problems, routine care, no contractions, no vaginal bleeding, no loss of fluid, no cramping Flowsheet Date 09/11/2024 Christianson Score Blood Edema Fundus Height Fundus Units Glucose Ketones Leukocytes Nitrite Labor Signs Protein Cervic Dilation Cervic Effacement Cervic Station Type Weight in lbs Pre/Post Dialysis Refused 154.026347958428 BP Diastolic BP Location Tested BP Systolic BP Type 74 108 sitting Fetus Heart Rate Present Fetus Movement A Yes Comments Flowsheet Date 09/25/2024 Christianson Score Blood Edema Fundus Height Fundus Units Glucose Ketones Leukocytes Nitrite Labor Signs Protein Cervic Dilation Cervic Effacement Cervic Station Type Weight in lbs Pre/Post Dialysis Refused BP Diastolic BP Location Tested BP Systolic BP Type Fetus Heart Rate Present Fetus Movement Comments Flowsheet Date 09/25/2024 Christianson Score Blood Edema Fundus Height Fundus Units Glucose Ketones Leukocytes Nitrite Labor Signs Protein Cervic Dilation Cervic Effacement Cervic Station neg none Type Weight in lbs Pre/Post Dialysis Refused 158.823399335667 BP Diastolic BP Location Tested BP Systolic BP Type 66 106 Fetus Heart Rate Present Fetus Movement A Yes Comments ursadiol helping, will sched ule testing and rpt bile acids today, +FM, mood good, call for preadmit, precutions and education f/u 2 weeks, reviewed US efw 15% Flowsheet Date 09/25/2024 Christianson Score Blood Edema Fundus Height Fundus Units Glucose Ketones Leukocytes Nitrite Labor Signs Protein Cervic Dilation Cervic Effacement Cervic Station Type Weight in lbs Pre/Post Dialysis Refused Weight 158.407873496804 BP Diastolic BP Location Tested BP Systolic BP Type 66 106 Fetus Heart Rate Present Fetus Movement Comments Flowsheet Date 09/30/2024 Christianson Score Blood Edema Fundus Height Fundus Units Glucose Ketones Leukocytes Nitrite Labor Signs Protein Cervic Dilation Cervic Effacement Cervic Station Type Weight in lbs Pre/Post Dialysis Refused BP Diastolic BP Location Tested BP Systolic BP Type Fetus Heart Rate Present Fetus Movement Comments Flowsheet Date 09/30/2024 Christianson Score Blood Edema Fundus Height Fundus Units Glucose Ketones Leukocytes Nitrite Labor Signs Protein Cervic Dilation Cervic Effacement Cervic Station Type Weight in lbs Pre/Post Dialysis Refused Weight 159.282077295052 BP Diastolic BP Location Tested BP Systolic BP Type 68 R arm 105 sitting Fetus Heart Rate Present Fetus Movement Comments Flowsheet Date 09/30/2024 Christianson Score Blood Edema Fundus Height Fundus Units Glucose Ketones Leukocytes Nitrite Labor Signs Protein Cervic Dilation Cervic Effacement Cervic Station neg none Type Weight in lbs Pre/Post Dialysis Refused 159.999469000407 BP Diastolic BP Location Tested BP Systolic BP Type 68 105 Fetus Heart Rate Present Fetus Movement A Yes Comments Patient is having some tight ing. reviewed precautions, education nst R, doing well call for preadmit bpp 8/8, f/u as scheduled will discuss delivery timing with dr. rosales Flowsheet Date 10/07/2024 Christianson Score Blood Edema Fundus Height Fundus Units Glucose Ketones Leukocytes Nitrite Labor Signs Protein Cervic Dilation Cervic Effacement Cervic Station Type Weight in lbs Pre/Post Dialysis Refused BP Diastolic BP Location Tested BP Systolic BP Type Fetus Heart Rate Present Fetus Movement Comments Flowsheet Date 10/07/2024 Christianson Score Blood Edema Fundus Height Fundus Units Glucose Ketones Leukocytes Nitrite Labor Signs Protein Cervic Dilation Cervic Effacement Cervic Station Type Weight in lbs Pre/Post Dialysis Refused Weight 162.539058147198 BP Diastolic BP Location Tested BP Systolic BP Type 73 111 Fetus Heart Rate Present Fetus Movement Comments Flowsheet Date 10/07/2024 Christianson Score Blood Edema Fundus Height Fundus Units Glucose Ketones Leukocytes Nitrite Labor Signs Protein Cervic Dilation Cervic Effacement Cervic Station neg trace Type Weight in lbs Pre/Post Dialysis Refused 162.578194541099 BP Diastolic BP Location Tested BP Systolic BP Type 73 111 Fetus Heart Rate Present Fetus Movement A Yes Comments Patient is having some pain, contractions and swelling. IOL 6/3 at 1700, +FM testing bpp 10/10, increased pruritus can recheck labs next week, f/u one week, precautions and education reviewed with dr. rosales Flowsheet Date 10/14/2024 Christianson Score Blood Edema Fundus Height Fundus Units Glucose Ketones Leukocytes Nitrite Labor Signs Protein Cervic Dilation Cervic Effacement Cervic Station Type Weight in lbs Pre/Post Dialysis Refused BP Diastolic BP Location Tested BP Systolic BP Type Fetus Heart Rate Present Fetus Movement Comments Flowsheet Date 10/14/2024 Christianson Score Blood Edema Fundus Height Fundus Units Glucose Ketones Leukocytes Nitrite Labor Signs Protein Cervic Dilation Cervic Effacement Cervic Station Type Weight in lbs Pre/Post Dialysis Refused Weight 161.978959554660 BP Diastolic BP Location Tested BP Systolic BP Type 74 L arm 111 sitting Fetus Heart Rate Present Fetus Movement A Yes Comments Flowsheet Date 10/14/2024 Christianson Score Blood Edema Fundus Height Fundus Units Glucose Ketones Leukocytes Nitrite Labor Signs Protein Cervic Dilation Cervic Effacement Cervic Station neg trace Type Weight in lbs Pre/Post Dialysis Refused 161.958857634550 BP Diastolic BP Location Tested BP Systolic BP Type 74 111 Fetus Heart Rate Present Fetus Movement A Yes Comments Patient states that is havin g some pain and swelling. +FM BPP 10/10 mild rt pyelectasis, f/u one week, itching better precautions reviewed Flowsheet Date 10/21/2024 Christianson Score Blood Edema Fundus Height Fundus Units Glucose Ketones Leukocytes Nitrite Labor Signs Protein Cervic Dilation Cervic Effacement Cervic Station Type Weight in lbs Pre/Post Dialysis Refused BP Diastolic BP Location Tested BP Systolic BP Type Fetus Heart Rate Present Fetus Movement Comments Flowsheet Date 10/21/2024 Christianson Score Blood Edema Fundus Height Fundus Units Glucose Ketones Leukocytes Nitrite Labor Signs Protein Cervic Dilation Cervic Effacement Cervic Station Type Weight in lbs Pre/Post Dialysis Refused BP Diastolic BP Location Tested BP Systolic BP Type Fetus Heart Rate Present Fetus Movement Comments Flowsheet Date 10/21/2024 Christianson Score Blood Edema Fundus Height Fundus Units Glucose Ketones Leukocytes Nitrite Labor Signs Protein Cervic Dilation Cervic Effacement Cervic Station Type Weight in lbs Pre/Post Dialysis Refused Weight 162.995978895575 BP Diastolic BP Location Tested BP Systolic BP Type 72 112 Fetus Heart Rate Present Fetus Movement Comments pruritus worsening even afte r increase discussed with dr rosales and will plan IOL for tomorrow evening, +FM check labs, bpp 10/10 f/u iol Menstrual History Last Menstrual Date Menses Monthly On Bcp Conception Prior Menses Frequency Hcg Plus Date Menarche Onset Age 0902/01/2024 Delivery Information Delivery Date Delivery Type Labor Anesthesia Weeks Gestation Incision Type Labor Labor Length Hrs Delivered By Post Complications Tubal Sterilization Discharge Date Comments Discharge Information Feeding Method Contraceptive Method Maternal HG B and HCT Levels
--- OUTSIDE RECORDS SUMMARY | 2024-10-21 14:57 | XMS_ITS | Clinical Summary ---
Author Organization [facility] Address [address] [place] [address] Care Team Providers Care Tile Erector Name Role Phone Corrina Brewer RETAIL LOAN OFFICER-PATIENT AMBASSADOR Primary Care Provider [phone] Source Comments [facility],non-owned Affiliates and Associated Physician Practices is amultiple site organization consisting of ambulatory clinics and hospital sitesin [place], [place], [place] and [place]. This disclosure is being madepursuant to the Care Everywhere program and may not contain all information available regarding this patient. Last updated 18.[facility] Allergies Active Allergy Reactions Criticality Noted Date Comments Cinnamon Swelling 08/23/2014 Oral swelling if inhaled Penicillins Urticaria 08/23/2014 Medications * This document contains information received from the source organization and may not represent a complete record from that organization. * Be aware that medications may not be up to date on this document. Alwaysverify current medications with the patient. No known medications Family History Medical History Relation Name Comments [place]<55(male) Brother Arrhythmia Neg Hx CVA<55(male) Neg Hx CVA<65(female) Neg Hx Cardiomyopathy Neg Hx Congenital Heart defect Neg Hx Heart Surgery Neg Hx Long QT Syndrome Neg Hx [place]<65(female) Neg Hx Marfan Syndrome Neg Hx Pacemaker Neg Hx Sudd. <30 Neg Hx Relation Name Status Comments Brother Alive Social History Tobacco Use Types Packs/Day Years Used Date Smoking Tobacco: Never Alcohol Use Standard Drinks/Week Comments Not Asked 0 (1 standard drink = 0.6 oz pur e alcohol) Comments Unknown Sex and Gender Information Value Date Recorded Sex Assigned at Not on file Legal Sex Female 5:45 AM FAGOTER Gender Identity Not on file Sexual Orientation Not on file Last Filed Vital Signs Vital Sign Reading Time Taken Comments Blood Pressure 98/42 04/07/2015 8:33 AM FAGOTER Pulse 84 04/07/2015 8:33 AM FAGOTER Temperature - - Respiratory Rate 16 04/07/2015 8:33 AM FAGOTER Oxygen Saturation 97% 04/07/2015 8:33 AM FAGOTER Inhaled Oxygen Concentration - - Weight 53.6 kg (118 lb 2.7 oz) 04/07/2015 8:33 A M FAGOTER Height 165 cm (5' 4.96) 04/07/2015 8:33 AM FAGOTER Body Mass Index 19.69 04/07/2015 8:33 AM FAGOTER Plan of Treatment Health Maintenance Due Date Last Done Comments PAP SMEAR 2000 HIV SCREENING 02/12/2015 HPV VACCINE (1 - 3-dose series) 02/12/2015 CHLAMYDIA/GONORRHEA SCREENING 2016 HEPATITIS C SCREENING 02/08/2018 DTAP/TDAP/TD VACCINES (1 - Tdap) 02/12/2019 HEPATITIS B VACCINE (1 of 3 - 19+ 3-dose series) 02/12/2019 COVID-19 VACCINE (1 - 2023-2 5 season) 2024 DEPRESSION SCREENING 05/27/2024 INFLUENZA VACCINE (Season Ended) 2025 ZOSTER VACCINE (1 of 2) 02/12/2050 HIB [...] on patient's age to complete this topic Insurance [facility] Care Teams Tile Erector Relationship Specialty Start Date End Date Corrina Brewer APRN-PATIENT AMBASSADOR PCP - General 08/23/14
--- OUTSIDE RECORDS SUMMARY | 2024-10-21 14:57 | XMS_ITS | Data Portability ---
Author Organization [facility], [id number] [facility] Address [address] [place] [id number] Assessment No assessment recorded. Plan of Treatment Reminders Order Date Submit Date Provider Last Modified By Organization Details Last Modified Time Details Appointments None recorded. Lab CBC w/ diff - between 08/21-[address] Lab, [address] [place] [address], [address], 5 11:21:09 HIV 1+2 AB + HIV 1 p24 Ag, qualitative immunoassay , serum [address] [place] [address] Lab, [address] [place] [address], [address], 5 11:21:10 [email or web address] Ab, igg [address] [place] [address] (Lab), [address] [place] [address], [address], 5 11:21:10 antibody screen, serum or plasma [address] Lab, [address] [place] [address], [address], 5 11:21:10 glucose tolerance test, post-50G, 1-hour [address] [place] [address] Lab, [address] [place], [place] [address], [place], [address], 11:21:10 Referral None recorded. Procedures None recorded. Surgeries None recorded. Imaging US, obstetric, follow-up 2024 025 [email or web address] [facility] [place] [place], [address], 10:39:42 US, obstetric - growth and EDQUAN 2024 025 DIANNA [facility] [place] [place], [address], 13:18:00 Medication Orders None recorded. Patient TargetsNo targets recorded. Patient InstructionsNo instructions recorded. Reason for Referral None Reported. Results Created Date Observation Date Name Description Value Unit Range Abnormal Flag Note LastModifiedBy Organization Detail LastModifiedTime 08/01/1907/28/2024 non-s tress test No observ ation record ed. [email or web address] Not Available 2024 10:36:35 08/09/19 25 08/07/2024 US, obste tric No observ ation record ed. [email or web address] [facility] [place], [address], 08/11/2024 17:47:59 08/23/19 25 08/14/2024 non-s tress test No observ ation record ed. [email or web address] [facility] [address] [place], [address], 08/30/2024 08:16:06 Result Notes None recorded. Problems Name Problem SNOMED Code Status Onset Date Resolution Date Notes Provider Name and Address Organization Details Recorded Time 41076094 Active 2024 Suzanne thurman [facility] 16:56:39 Attention deficit hyperacti vity disorder 953743361 Active 2024 Suzanne Emilicharles null, [facility] 5 09:01:58 Asthma 401608292 Active RAMESH MAURO CNM [address], [place], [address] , [facility] 5 10:14:11 Bipolar disorder 85250651 Active RAMESH BORJAS [address], [place], [address] , [facility] 5 10:14:21 Migraine 32312798 Active RAMESH BORJAS [address], [place], [address] , [facility] 5 10:14:27 Seizure disorder 478849529 Active 2024 chronic complex migraine w/onset petit mal seizure per pt dec 2020, Dr Thomas [facility]is t [facility] prescribed rizatripta n in 02/2019 for migraine and PCP Lor Mccallum and Aniya Agarwal refill for hew now. Stopped her amitryptil ine for stress in Apr 2019 as no sz for 2 yr and none since. Suzanne Wilkins null, [facility] 5 09:04:58 Nulliparo us 188971367 Active ASA RAMESH BORJAS [address], [place], [address] , [facility] 5 10:14:03 Asthma 545572370 Active RAMESH BORJAS [address], [place], [address] , [facility] 5 10:14:11 Bipolar disorder 40784294 Active RAMESH BORJAS [address] [facility] [address], [place], [address] , [facility] 5 10:14:21 Migraine 18162464 Active RAMESH JHADIANA CN [address], [facility] [place], [address] , [facility] 5 10:14:27 Marijuana user 896711491 Active marijuana, recom stop RAMESH JHADIANA CN [address], [facility] [place], [address] , [facility] 5 10:14:49 Exposure to Bordetell a pertussis Active 2024 DESTINEY DALAL MD [address] [facility] [address], [place], [address] , [facility] 5 19:29:01 Depressed bipolar I disorder 82670815 Active Bipolar disorder with depression , Problem Code: 296.50; Problem Code Type: ICD-9; Not Available Critical [facility] hospital 5 12:21:29 Epilepsy 37600808 Active Seizure Disorder, chronic complex migraine w onset petit mal seizure per pt dec 2020; Dr. Thomas, [facility]is [facility] , prescribed rizatripta n in feb 2019 for migraine and PCP Lor mccallum and aniya agarwal refill for her now. stopped her amitryptil ine (for stress) in apr 2019 as no sz for 2yr, and none since. Problem Code: 345.90; Problem Code Type: ICD-9; Startdate: 'resolved apr 2019'; Not Available Critical access hospital 5 12:21:29 Problem Notes None recorded. Procedures Surgical History Date Name Laterality Status Provider Name and Address Organization Details Recorded Time 06/08/19 Date of Last Pap Smear completed Suzanne Wilkins [facility] 07/24/2024 09:00:00 05/27/19 23 Colonoscopy completed Suzanne Wilkins [facility] 07/24/2024 08:58:53 05/27/19 23 endoscopy completed Suzanne Wilkins [facility] 07/24/2024 08:59:05 endoscopy completed Not Available [facility] 09/24/2024 14:02:28 colonoscopy completed Not Available Critical access hospital 09/24/2024 14:02:29 Imaging Results None recorded. Procedure Notes None recorded. Medical Equipment None Reported. Allergies Allergen ID Allergen Name Allergen Category Reaction Reaction Severity Criticality Documentation Date Start Date Code Code System Note Provider Name and Address Organization Details Recorded Time 687808 amoxicill in medicatio n hives Not available Not available 07/24/2024 723 RxNorm Suzanne Ketten null, [place] [facility] 5 09:00:59 944697 Bactrim medicatio n Not available Not available Not available 07/24/2024 12434 9 RxNorm Suzanne Ketten null, [place] [facility] 5 09:01:06 207268 cinnamon preparati on food,medi cation hives Not available Not available 07/24/2024 11977 5 RxNorm Suzanne Ketten null, [place] [facility] 5 09:01:19 250607 Compazine medicatio n anaphylax is Not available Not available 07/24/2024 18692 6 RxNorm Suzanne Ketten null, [place] [facility] 5 09:01:32 280522 Product containin g penicilli n (product) medicatio n hives Not available Not available 07/24/2024 37254 8001 SNOMED Suzanne Ketten null, [place] - [facility] 5 09:01:50 597299 diphenhyd ramine hydrochlo ride medicatio n Not available Not available Not available 09/24/2024 1362 RxNorm , , Other Not Available Critical access hospital 5 11:54:58 Medications Name Sig Start Date Stop Date [...] Available Vitals Date Recorded Body weight Systolic And Diastolic Provider Name and Address Organization Details Last Updated DateTime 07/24/2024 72004.22782 g 118/60 mm[Hg] Clif Estrada [facility] 07/24/2024 10:06:13 Social History Question Answer Notes LastModified by Organizat ion Details LastModified Time Tobacco Smoking Status Never Smoker Suzanne Wilkins [facility] 07/24/2024 08:58:00 Do You Have An Advance Directive? No Information not available 07/24/2024 If You Are , What Was Your Level Of Alcohol Consumption Prior To ? Occasional Information not available 07/24/2024 What Is Your Level Of Caffeine Consumption? Occasional Information not available 07/24/2024 What Type Of Diet Are You Following? REGULAR Information not available 07/24/2024 What Is Your Relationship Status? Single Information not available 07/24/2024 Are You Currently In School? Yes Information not available 07/24/2024 Sex: Unknown Functional Status Question Answer Note LastModified by Organizat ion Details LastModified Time How many times per week do you consume alcohol? Less than 1 time per week Information not available 07/24/2024 Do you use any illicit or recreational drugs? No Information not available 07/24/2024 What is your level of alcohol consumption? None Information not available 07/24/2024 Are you currently employed? 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 Family History Relationship [...] Substance abuse [email or web address] Not available 2024 10:07:44 Brother Seizure disorder Seizur e Disord er Not available 09/24/2024 13:39:12 Brother Mixed hypercholest erolemia and hypertriglyc eridemia Elevat ed Choles terol/ Trigly ceride s Not available 09/24/2024 13:39:12 Brother Bipolar disorder Bipola r Disord er Not available 09/24/2024 13:39:12 Brother Asthma Asthma Not available 09/24/2024 13:39:12 Brother Hyperthyroid ism Hypert hyroid ism Not available 09/24/2024 13:39:13 Brother Depressive disorder Depres dana Not available 09/24/2024 13:39:13 Brother Malignant neoplastic disease Cancer Not available 2024 13:39:14 Brother Malignant tumor of colon Colon Cancer Not available 09/24/2024 13:39:14 Brother Hypertensive disorder High Blood Pressu re Not available 09/24/2024 13:39:15 Brother Heart disease Heart Diseas e Not available 09/24/2024 13:39:15 Brother Epilepsy Epilep sy Not available 09/24/2024 13:39:15 Maternal Grandfather Seizure disorder Seizur e Disord er Not available 09/24/2024 13:39:12 Maternal Grandfather Hyperthyroid ism Hypert hyroid ism Not available 09/24/2024 13:39:13 Maternal Grandfather Malignant tumor of colon Colon Cancer Not available 09/24/2024 13:39:14 Maternal Grandfather Hypertensive disorder High Blood Pressu re Not available 09/24/2024 13:39:15 Maternal Grandfather Epilepsy Epilep sy Not available 09/24/2024 13:39:15 Maternal Grandmother Seizure disorder Seizur e Disord er Not available 09/24/2024 13:39:12 Maternal Grandmother Hyperthyroid ism Hypert hyroid ism Not available 09/24/2024 13:39:13 Maternal Grandmother Malignant tumor of colon Colon Cancer Not available 09/24/2024 13:39:14 Maternal Grandmother Hypertensive disorder High Blood Pressu re Not available 09/24/2024 13:39:15 Maternal Grandmother Epilepsy Epilep sy Not available 09/24/2024 13:39:16 Mother Seizure disorder Seizur e Disord er Not available 09/24/2024 13:39:12 Mother Malignant neoplastic disease Cancer Not available 2024 13:39:14 Mother Malignant tumor of colon Colon Cancer Not available 09/24/2024 13:39:14 Mother Hypertensive disorder High Blood Pressu re Not available 09/24/2024 13:39:15 Mother Epilepsy Epilep sy Not available 09/24/2024 13:39:16 Paternal Grandfather Seizure disorder Seizur e Disord er Not available 09/24/2024 13:39:12 Paternal Grandfather Hyperthyroid ism Hypert hyroid ism Not available 09/24/2024 13:39:13 Paternal Grandfather Malignant tumor of colon Colon Cancer Not available 09/24/2024 13:39:14 Paternal Grandfather Hypertensive disorder High Blood Pressu re Not available 09/24/2024 13:39:15 Paternal Grandfather Epilepsy Epilep sy Not available 09/24/2024 13:39:16 Sister Depressive disorder Depres dana Not available 09/24/2024 13:39:14 Medical History Condition Response Neurology- Seizures/Epilepsy Y Psych- Anxiety Disorder Y Cancer- Genetic screening Pulmonary- Asthma Y Psych- Depression Y Psych- ADD Y GI-Other Y Neurology- Headaches/Migraines Y Psych- Bipolar Disease Y Gynecological History Statement/Question Response History of PCOS N Flow Heavy History of Fibroids N Date of LMP 02/01/2024 History of Infertility N History of Vulvar Dysplasia N History of Cervical Dysplasia N Duration of Flow (days) 4 Age at Menarche 12 History of Recurrent Ovarian Cysts Y Age at first intercourse 16 HPV Vaccine Completed History of Endometriosis Y Date of Last Colonoscopy Frequency of Cycle (Q days) 28 Sexually Active? Y History of Dysmenorrhea N Menses Monthly N Date of Last Pap Smear 06/08/2022 Sexual Problems? N History of Sexually Transmitted Infectio n N Obstetrics History GPAL:G 2 P 0 0 1 0 Type Value Spontaneous 1 Living 0 Total 2 Immunizations Vaccine Type Date Status Note Provider Nam e and Address Organization Details Recorded Time HPV9 07/24/2024 completed Suzanne Wilkins [facility] 07/24/2024 08:50:17 influenza, unspecified formulation 05/27/2021 completed Suzanne Wilkins [facility] 07/24/2024 09:36:14 Past Encounters Encounter ID Performer Location Encounter Start Date Encounter Closed Date Diagnosis/Indication Diagnosis SNOMED-CT Code Diagnosis ICD10 Code Diagnosis Note [id number] [address], MD [id number] [facility] [address] [facility] [address] [place] [address] 07/24/2024 09:56:33 07/24/2024 10:30:45 screening 677352612 Z36.9 Normal pre gnancy in multigravida 4991599763 47736 Z34.82 Health Concerns Section Related Observation LastModified by Organization Detai ls LastModified Time None Recorded Concern Status LastModified by Organization Details LastModified Time None Recorded Advance Directives Directive N: Payers Insurance Date Sequence Insurance Name Policy Number Policy Silva Covered Member ID Silva Member ID Guarantor Name 08/18/2024 1 [facility] (MEDICAID HMO) [id number] Edelmira hSi [id number] Edelmira Shi OBGyn Episode Ob Episode Information Episode Created Date Number of Fetuses Patient Bloodtype Patient rh Status Prepregnancy Weight lbs Domestic Partner Domestic Partner Phone Father Name Negative Stripper Status 07/07/19 25 1 A Positive 132 OPEN Fetus Data First Name Last Name Admitted to NICU Weight (g) Sex Living Outcome Pediatric Complications Fetus ID Race Codes Race Delivery Type [id number] Problems Problem Notes sahil 27 edc - 7w pole @NOB, 3 w after +HPTpertussis exposure at schoool @25w, Zpak eRx'd Problem Name Start Date End Date Resolution Snomed Code Not e Migraine 15394720 Bipolar disorder 16469418 Nulliparous 097204414 ASA Asthma 467919084 Marijuana user 713989343 tnag anna, recom stop Mynor Calculation Initial Mynor Date [...] Type Weight in lbs Pre/Post Dialysis Refused 123.428247272106 BP Diastolic BP Location Tested BP Systolic [...] Estim ated Date of Delivery false Thalassemia (Montenegrin, New Zealander, Mediterranean, Or Background): MCV < 80 false Neural Tube Defect (Meningomyelocele, Spina Bifi da, Or Anencephaly) false Congenital Heart Defect false Down Syndrome false Jose J-Sachs (eg, Pentecostalism, Cajun, Frisian-Neosho) f alse Erin Disease false Sickle Cell Disease Or Trait () false Hemophilia Or Other Blood Disorders false Muscular Dystrophy false Cystic Fibrosis false [place]'s Chorea false Intellectual Disability/Autism false If Yes, [...] Domestic Partner Domestic Partner Phone Father Name Negative Stripper Status 07/24/19 25 1 DELETED Mynor Calculation [...] Domestic Partner Domestic Partner Phone Father Name Negative Stripper Status 07/24/19 1 DELETED Mynor Calculation Initial Mynor Date Initial Exam Date Initial Exam Provider Initial Ultrasound Date Last Menstrual Period Date Ultra Sound Weeks Gestation 0 Eighteen To Twenty Week Mynor Update Ultra Sound Date Fundal Height At Umbil Quickening Date Ultra Sound Latest Weeks Gestation Final Mynor Confirmed By Final Mynro Confirmed Date Final Mynor Date Ultra Sound [...]
--- OUTSIDE RECORDS SUMMARY | 2024-10-21 14:57 | XMS_ITS | Continuity of Care Document ---
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 Plan of Treatment [...] Not available INDUCTI ON 2024 05:00P M INDIO RileyM Not available Not available Not available U/S [...] Not available OB ROUTINE 2024 11:30A M INDIO RileyM Not available Not available Not available Lab None recorde d. Referral None recorde d. Procedures None recorde d. Surgeries None recorde d. Imaging US, obstetr ic, biophys ical profile + non-str ess test [address]24 [address], [address], [place], [address], 10/21/2024 14:12:43 US, obstetr ic, follow- up [address], [address], [place], [address], 10/21/2024 14:12:43 Medication Orders None recorde d. Patient TargetsNo targets recorded. Patient InstructionsNo instructions recorded. Reason for Referral None Reported. Results Created Date Observation Date Name Description Value Unit Range Abnormal Flag Note LastModifiedBy Organization Detail LastModifiedTime 08/29/1908/28/2024 US, obste tric, follo w-up No observ ation record ed. [facility] [address], [place], [address], 08/28/2024 17:50:44 08/29/19 25 08/28/2024 , obste tric, follo w-up No observ ation record ed. [email or web address] [address], [place], [address], 09/01/2024 22:56:21 09/26/19 25 09/25/2024 US, obste tric, follo w-up No observ ation record ed. [facility] [address], [place], [address], 09/25/2024 17:25:47 09/26/19 25 09/25/2024 US, obste tric, follo w-up No observ ation record ed. [email or web address] [address], [place], [address], 09/29/2024 06:36:16 09/27/19 25 09/25/2024 non-s tress test No observ ation record ed. [email or web address] [facility] [address], [place], [address], 09/26/2024 08:53:04 10/01/19 25 09/30/2024 US, obste tric, bioph ysica l profi le + non-s tress test No observ ation record ed. [email or web address] [facility] [address], [place], [address], 09/30/2024 17:26:21 10/01/19 25 09/30/2024 US, obste tric, follo w-up No observ ation record ed. [email or web address] [address], [place], [address], 10/02/2024 07:04:39 10/01/19 25 09/30/2024 non-s tress test No observ ation record ed. [email or web address] [facility] [address], [place], [address], 09/30/2024 20:21:07 10/01/19 25 09/30/2024 non-s tress test No observ ation record ed. [email or web address] [facility] [address], [place], [address], 09/30/2024 22:01:38 10/08/19 25 10/07/2024 US, obste tric, bioph ysica l profi le + non-s tress test No observ ation record ed. [email or web address] [facility] [address], [place], [address], 10/07/2024 18:17:09 10/08/19 25 10/07/2024 US, obste tric, bioph ysica l profi le + non-s tress test No observ ation record ed. [email or web address] [address], [place], [address], 10/07/2024 15:18:34 10/08/19 25 10/07/2024 non-s tress test No observ ation record ed. [email or web address] [facility] [address], [place], [address], 10/07/2024 20:27:17 10/08/19 25 10/07/2024 non-s tress test No observ ation record ed. [email or web address] [facility] [address], [place], [address], 10/07/2024 20:29:44 10/08/19 25 09/25/2024 non-s tress test No observ ation record ed. [email or web address] Not Available 10/07 20:46:45 10/15/19 25 10/15/2024 US, obstgiulia tric, bioph ysica l profi le + non-s tress test No observ ation record ed. [email or web address] [facility] [address], [place], [address], 10/15/2024 11:29:30 10/15/19 25 10/14/2024 US, obste tric, follo w-up No observ ation record ed. [email or web address] [address], [facility], [place], [address], 10/20/2024 22:40:55 10/15/19 25 10/14/2024 non-s tress test No observ ation record ed. [email or web address] [facility] [address], [place], [address], 10/14/2024 15:43:20 10/22/19 25 US, obste tric, bioph ysica l profi le + non-s tress test No observ ation record ed. [email or web address] [facility] [address], [place], [address], 10/21/2024 14:04:56 10/22/19 25 US, obste tric, follo w-up No observ ation record ed. [email or web address] [facility] [address], [place], [address], 10/21/2024 14:05:18 10/22/19 25 10/21/2024 US, obste tric, bioph ysica l profi le + non-s tress test No observ ation record ed. [email or web address] [address], [place], [address], 10/21/2024 14:09:09 Result Notes None recorded. Problems Name Problem SNOMED Code Status Onset Date Resolution Date Notes Provider Name and Address Organization Details Recorded Time History of seizure Active none in last 5 years/str ess related Lisa Slater CNM [address], [place], [address], [facility] 5 15:16:44 Migraine 65789521 Active stress related Lisa Slater CNM [address], [place], [address], [facility] 5 15:16:30 Mixed anxiety and depressiv e disorder 417536610 Active has f/u with psychiatr ist Lisa Slater CNM [address], [place], [address], [facility] 5 15:16:25 74301091 Active 2024 Luli Rivas [facility], [facility] 5 15:03:31 History of seizure Active none in last 5 years/str ess related [address], [place], [address], [facility] 5 15:16:44 Migraine 04205561 Active stress related Lisa Slater CNM [address], [place], [address], [facility] 5 15:16:30 Mixed anxiety and depressiv e disorder 742398093 Active has f/u with psychiatr ist Lisa Slater CNM [address], [place], [address], [facility] 5 15:16:25 Bipolar disorder 65350837 Active no current medicatio n, vraylar prior to Lisa Slater CNM [address], [place], [address], [facility] 5 15:16:00 Pruritic disorder of skin Active 2024 bile acids/cmp ordered 09/11 ursodiol 300mg BID bile acids 7 Rpt labs started nst 32 wks increase to 500mg bid rpt next visit Lisa Slater CNM [address], [place], [address], [facility] 5 16:23:13 Cholestas is 40058783 Active 2024 Ursodiol increased to 500mg BID Rebecca Broderick [facility] 5 16:41:33 Cholestas is 69734314 Active 2024 Ursodiol increased to 500mg BID Rebecca Broderick [facility], [facility] 16:41:33 Problem Notes None recorded. Procedures Surgical History Date Name Laterality Status Provider Name and Address Organization Details Recorded Time 09/26/19 25 endoscopy completed Luli Rivas [facility] 09/25/2024 15:17:22 09/26/19 25 endoscopy completed Luli Rivas [facility] 09/25/2024 15:17:47 03/18/20 23 Colonoscopy completed Luli Rivas [facility] 08/28/2024 15:02:38 03/15/20 23 completed Luli Jenkinstz [facility] 08/28/2024 15:02:37 03/15/20 23 Date of Last Colonoscopy completed Luli Rivas [facility] 08/28/2024 15:02:37 06/15/19 22 Date of Last Pap Smear completed Luli Rivas [facility] 08/28/2024 15:02:37 Imaging Results None recorded. Procedure Notes None recorded. Medical Equipment None Reported. Allergies Allergen ID Allergen Name Allergen Category Reaction Reaction Severity Criticality Documentation Date Start Date Code Code System Note Provider Name and Address Organization Details Recorded Time 14969 cinnamon preparati on food,medi cation hives mild Not available 08/28/2024 52662 5 RxNorm Luli Rivas [facility] 5 15:02:37 00522 Compazine medicatio n anaphylax is severe Not available 08/28/2024 65455 6 RxNorm Luli Rivas [facility] 5 15:02:37 35081 Bactrim medicatio n anaphylax is severe Not available 08/28/2024 23620 9 RxNorm Luli Rivas [facility] 5 15:02:37 85996 wool environme nt hives mild Not available 08/28/2024 10146 UNK Luli Rivas [facility] 5 15:02:37 67194 Penicilli n Not available hives moderate Not available 08/28/2024 84293 RxNorm Luli Rivas [facility] 5 15:02:37 Medications Name Sig Start Date Stop [...] Available Not Available Vitals Date Recorded Body height Body mass index (BMI) Body weight Systolic blood pressure Diastolic blood pressure Provider Name and Address Organization Details Last Updated DateTime 10/21/2024 165.74 cm 26.8 kg/m2 05900.96 g 112 mm[Hg] 72 mm[Hg] Luli Rivas [facility] 14:46:33 Social History Question Answer Notes LastModified by Organizat ion Details LastModified Time Tobacco Smoking Status Never Smoker Luli Rivas [facility], [facility] 10/07/2024 15:53:49 Do You Have An Advance Directive? No [email or web address] Information n ot available 08/28/2024 If You Are , What Was Your Level Of Alcohol Consumption Prior To ? Occasional [email or web address] Information not available 10/07/2024 How Many Years Have You Consumed Alcohol? 7 [email or web address] Information not available 08/28/2024 Are You Blind Or Do You Have Difficulty Seeing? No [email or web address] Information n ot available 08/28/2024 What Is Your Level Of Caffeine Consumption? Occasional [email or web address] Information not available 08/28/2024 How Much Tobacco Do You Chew? None [email or web address] Information not available 08/28/2024 In The 14 Days Before Symptom Onset, Have You Had Close Contact With A Laboratory-confirm ed COVID-19 While That Case Was Ill? No [email or web address] Information n ot available 08/28/2024 In The 14 Days Before Symptom Onset, Have You Had Close Contact With A Person Who Is Under Investigation For COVID-19 While That Person Was Ill? No [email or web address] Information not available 08/28/2024 Have You Been To An Area Known To Be High Risk For COVID-19? No [email or web address] Information not available 08/28/2024 Are You Deaf Or Do You Have Serious Difficulty Hearing? No [email or web address] Information not available 08/28/2024 What Type Of Diet Are You Following? REGULAR [email or web address] Information n ot available 08/28/2024 What Is The Highest Grade Or Level Of School You Have Completed Or The Highest Degree You Have Received? [id number] [email or web address] Information not available 08/28/2024 Are There Any Guns Present In Your Home? Yes [email or web address] Information not available 08/28/2024 Do You Use Protection During Sex? No [email or web address] Information not available 08/28/2024 Do You Use Your Seat Belt Or Car Seat Routinely? Yes [email or web address] Information not available 08/28/2024 Do You Have Smoke And Carbon Monoxide Detectors In Your Home? Yes [email or web address] Information not available 08/28/2024 How Much Tobacco Do You Smoke? No Information not available 08/28/2024 Do You Use Sunscreen Routinely? Yes [email or web address] Information not available 08/28/2024 Have You Used IV Drugs? No [email or web address] Information not available 08/28/2024 Do You Have Difficulty Walking Or Climbing Stairs? No [email or web address] Information not available 09/30/2024 Sex: Unknown Functional Status Question Answer Note LastModified by Organizat ion Details LastModified Time Do you use any illicit or recreational drugs? No [email or web address] Information not available 08/28/2024 What is your level of alcohol consumption? None [email or web address] Information not available 10/07/2024 Are you able to walk? YESWOREST [email or web address] Information not available 08/28/2024 Are you able to care for yourself? 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 No [email or web address] Information not available 09/30/2024 What is your exercise level? Moderate [email or web address] Information not available 08/28/2024 Mental Status Question Answer Note LastModified by Organization D etails LastModified Time Do you feel stressed (tense, restless, nervous, or anxious, or unable to sleep at night)? [id number] [email or web address] Information not available 08/28/2024 Family History Relationship Description Onset Age of this Age Resolved Age Notes LastModified by Organization Details LastModified Time Brother Anxiety disorder [email or web address] Not available 08/28 15:02:37 Brother Depressive disorder [email or web address] Not available 08/28 15:02:37 Brother Substance abuse [email or web address] Not available 08/28 15:02:37 Brother Mental disorder [email or web address] Not available 08/28 15:02:37 Father Anxiety disorder Not available 08/28 15:02:37 Father Depressive disorder [email or web address] Not available 08/28 15:02:37 Father Substance abuse [email or web address] Not available 08/28 15:02:37 Mother Disorder of thyroid gland idgsyoxr04 Not available 08/28 15:02:37 Mother Anxiety disorder [email or web address] Not available 08/28 15:02:37 Mother Depressive disorder [email or web address] Not available 08/28 15:02:37 Mother High risk [email or web address] Not available 08/28 15:02:37 Maternal Aunt High risk [email or web address] Not available 08/28 15:02:37 Maternal Grandmother Depressive disorder Not available 08/28 15:02:37 Maternal Grandmother High risk [email or web address] Not available 08/28 15:02:37 Sister Anxiety disorder Not available 08/28 15:02:37 Sister Depressive disorder [email or web address] Not available 08/28 15:02:37 Sister Mental disorder [email or web address] Not available 08/28 15:02:37 Paternal Grandfather Malignant tumor of colon [email or web address] Not available 08/28 15:02:37 Medical History Condition [...] SNOMED-CT Code Diagnosis ICD10 Code Diagnosis Note [id number] Jose Rosales MD [facility] [address],[facility] [place] [address] 09/25/2024 14:21:01 09/25/2024 15:10:36 Observational assessment 336941692 Z03.74 O35.8XX0 Z3A.32 [id number] Lisa Slater CNM [facility] [address],[facility] [place] [address] 09/25/2024 14:21:17 09/28/2024 11:02:01 Gestation period, 32 weeks 0085374 Z3A.32 continue vitamin [id number] [facility] [address],[place] [address] 09/25/2024 15:35:42 09/28/2024 11:08:31 Cholecystitis 88188856 K81.9 [id number] Jose Rosales MD [facility] [address],[place] [address] 09/30/2024 14:40:20 09/30/2024 15:56:51 Cholestasis of 081043740 O26.643 Z3A.32 [id number] Lisa Slater [facility] [address],[place] [address] 09/30/2024 14:40:40 10/01/2024 11:01:52 Cholestasis of 726772465 O26.643 [id number] Lisa Slater [facility] [address],[place] [address] 09/30/2024 14:41:04 09/30/2024 17:49:41 Gestation period, 32 weeks 8853414 Z3A.32 continue vitamin Cholestasi s of 614097875 O26.643 [id number] Jose Rosales MD [facility] [address],[place] [address] 10/07/2024 13:59:18 10/07/2024 16:02:57 Cholestasis of 770438603 O26.643 Z3A.33 [id number] Lisa Slater [facility] [address],[place] [address] 10/07/2024 13:59:32 10/08/2024 12:05:24 Cholestasis of 807013735 O26.643 [id number] [facility] [address],[place] [address] 10/07/2024 13:59:47 10/07/2024 16:52:20 Cholestasis of 181626759 O26.643 Gestation period, 33 weeks 84216866 Z3A.33 [id number] Jose Rosales MD [facility] [address],[place] [address] 10/14/2024 14:20:15 10/14/2024 15:04:32 Cholestasis of 175855765 O26.643 Z3A.34 [id number] [facility] [address],[place] [address] 10/14/2024 14:20:39 10/14/2024 15:49:00 Cholestasis of 736144155 O26.643 [id number] [facility] [address],[place] [address] 10/14/2024 14:20:55 10/14/2024 15:57:46 Gestation period, 34 weeks 91055496 Z3A.34 screening 2437 26069 Z36.85 [id number] Jose Rosales MD [facility] [address],[place] [address] 10/21/2024 13:32:01 10/21/2024 14:12:42 Cholestasis of 521026537 O26.643 Z3A.35 [id number] Lisa Slater [facility] [address],[place] [address] 10/21/2024 13:33:42 10/21/2024 15:07:42 Itching 814952192 L29.9 Gestation period, 35 weeks 75587402 Z3A.35 Health Concerns Section Related Observation LastModified by Organization Detai ls LastModified Time None Recorded Concern Status LastModified by Organization Details LastModified Time None Recorded Payers Encounter Date Sequence Insurance Name Policy Number Policy Silva Covered Member ID Silva Member ID Guarantor Name 10/21/2024 1 [employer] (MEDICAID HMO) [id number] Edelmira Shi [id number] Edelmira Shi OBGyn Episode Ob Episode Information Episode Created Date Number of Fetuses Patient Bloodtype Patient rh Status Prepregnancy Weight lbs Domestic Partner Domestic Partner Phone Father Name Scrum Master Status 08/29/19 25 1 A Positive Young Rasheed OPEN Fetus Data First Name Last Name Admitted to NICU Weight (g) Sex Living Outcome Pediatric Complications Fetus ID Race Codes Race Delivery Type [id number] Problems Problem Notes mild right pylectasisvenous lakes rpt 4 weeksIOL scheduled 10/27/24 1700 Problem Name Start Date End Date Resolution Snomed Code Not e History of seizure 1953989465 none in last 5 years/stress related Bipolar disorder 39491879 no current medication, vraylar prior to Pruritic disorder of skin 09/11/2024 4113824948 bile acids/cmp ordered 09/11 ursodiol 300mg BID bile acids 7 Rpt labsstarted nst 32 wksincrease to 500mg bid rpt next visit Cholestasis 10/07/2024 77988420 Ursodio l increased to 500mg BID Migraine 49401899 stress rel ated Mixed anxiety and depressive disorder 432832039 has f/u with psychiatrist Mynor Calculation Initial Mynor Date Initial Exam Date Initial Exam Provider Initial Ultrasound Date Last Menstrual Period Date Ultra Sound Weeks Gestation 08/28/2024 Lisa Hinojosagle 02/01/2024 0 Eighteen To Twenty Week Mynor Update Ultra Sound Date Fundal Height At Umbil Quickening Date Ultra Sound Latest Weeks Gestation Final Mynor Confirmed By Final Mynor Confirmed Date Final Mynor Date Ultra Sound Latest Days Gestation 0 11/21/19 25 0 Pre-alesha Flowsheet Flowsheet Date 08/28/2024 Christianson Score Blood Edema Fundus Height Fundus Units Glucose Ketones Leukocytes Nitrite Labor Signs Protein Cervic Dilation Cervic Effacement Cervic Station neg none none trace Type Weight in lbs Pre/Post Dialysis Refused Weight 151.571100370785 BP Diastolic BP Location Tested BP Systolic BP Type 66 99 Fetus Heart Rate Present Fetus Movement A Yes Comments pt is transfer of care from [facility], reviewed medical history, no current meds other than , disc risk for pp depression, has plan with pcp and psychiatrist , resume routine careUS venous nguyen mild pylectasis Flowsheet Date 09/10/2024 Christianson Score Blood Edema Fundus Height Fundus Units Glucose Ketones Leukocytes Nitrite Labor Signs Protein Cervic Dilation Cervic Effacement Cervic Station Type Weight in lbs Pre/Post Dialysis Refused Weight 154.84031855516 BP Diastolic BP Location Tested BP Systolic [...] Type Weight in lbs Pre/Post Dialysis Refused 154.266827657347 BP Diastolic BP Location Tested BP Systolic [...] Type Weight in lbs Pre/Post Dialysis Refused 158.232747071219 BP Diastolic BP Location Tested BP Systolic [...] Weight in lbs Pre/Post Dialysis Refused Weight 158.270301285307 BP Diastolic BP Location Tested BP Systolic [...] Weight in lbs Pre/Post Dialysis Refused Weight 159.351927224813 BP Diastolic BP Location Tested BP Systolic BP Type 68 R arm 105 sitting Fetus Heart Rate Present Fetus Movement Comments Flowsheet Date 09/30/2024 Christianson Score Blood Edema Fundus Height Fundus Units Glucose Ketones Leukocytes Nitrite Labor Signs Protein Cervic Dilation Cervic Effacement Cervic Station neg none Type Weight in lbs Pre/Post Dialysis Refused 159.976287115663 BP Diastolic BP Location Tested BP Systolic BP Type 68 105 Fetus Heart Rate Present Fetus Movement A Yes Comments Patient is having some tight ing. reviewed precautions, education nst R, doing well call for preadmit bpp 8/, f/u as scheduled will discuss delivery timing [...] Weight in lbs Pre/Post Dialysis Refused Weight 162.840180829741 BP Diastolic BP Location Tested BP Systolic BP Type 73 111 Fetus Heart Rate Present Fetus Movement Comments Flowsheet Date 10/07/2024 Christianson Score Blood Edema Fundus Height Fundus Units Glucose Ketones Leukocytes Nitrite Labor Signs Protein Cervic Dilation Cervic Effacement Cervic Station neg trace Type Weight in lbs Pre/Post Dialysis Refused 162.414779235664 BP Diastolic BP Location Tested BP Systolic [...] Weight in lbs Pre/Post Dialysis Refused Weight 161.603300252435 BP Diastolic BP Location Tested BP Systolic BP Type 74 L arm 111 sitting Fetus Heart Rate Present Fetus Movement A Yes Comments Flowsheet Date 10/14/2024 Christianson Score Blood Edema Fundus Height Fundus Units Glucose Ketones Leukocytes Nitrite Labor Signs Protein Cervic Dilation Cervic Effacement Cervic Station neg trace Type Weight in lbs Pre/Post Dialysis Refused 161.946904024640 BP Diastolic BP Location Tested BP Systolic [...] Weight in lbs Pre/Post Dialysis Refused Weight 162.394367263518 BP Diastolic BP Location Tested BP Systolic [...]
--- OUTSIDE RECORDS SUMMARY | 2024-10-21 14:58 | XMS_ITS | Continuity of Care Document ---
Author Organization [facility] Address [address] [place] [address] Care Team Providers Care Front Desk Team Member Name Role Phone RAHEL VIDAL Primary Care [...] Lab bile acids, total, serum 2024 025 [facility] (Lab), [address], [place], [address], 10/21/2024 14:54:39 CMP, serum or plasma 2024 025 [facility] (Lab), [address], [place], [address], 10/21/2024 14:54:39 Referral None recorde d. Procedures None recorde d. Surgeries None recorde d. Imaging None recorde d. Medication Orders None recorde d. Patient TargetsNo targets recorded. Patient InstructionsNo instructions recorded. Reason for Referral None Reported. Results Created Date Observation Date Name Description Value Unit Range Abnormal Flag Note LastModifiedBy Organization Detail LastModifiedTime 08/29/1908/28/2024 US, obste tric, follo w-up No observ ation record ed. [facility] [address], [place], [address], 08/28/2024 17:50:44 08/29/1908/28/2024 US, obste tric, follo w-up No observ ation record ed. [email or web address] [address], [place], [address], 09/01/2024 22:56:21 09/26/1909/25/2024 US, obste tric, follo w-up No observ ation record ed. [facility] [address], [place], [address], 09/25/2024 17:25:47 09/26/1909/25/2024 US, obste tric, follo w-up No observ ation record ed. [email or web address] [address], [place], [address], 09/29/2024 06:36:16 09/27/192025 non-s tress test No observ ation record ed. [email or web address] [facility] [address], [place], [address], 09/26/2024 08:53:04 10/01/19 25 09/30/2024 US, obste tric, bioph ysica l profi le + non-s tress test No observ ation record ed. [email or web address] [facility] [address], [place], [address], 09/30/2024 17:26:21 10/01/19 25 09/30/2024 US, obste tric, follo w-up No observ ation record ed. [address], [place], [address], 10/02/2024 07:04:39 10/01/19 25 09/30/2024 non-s tress test No observ ation record ed. [email or web address] [facility] [address], [place], [address], 09/30/2024 20:21:07 10/01/19 25 09/30/2024 non-s tress test No observ ation record ed. [email or web address] [facility] [address], [place], [address], 09/30/2024 22:01:38 10/08/19 25 10/07/2024 US, obste tric, bioph ysica l profi le + non-s tress test No observ ation record ed. [email or web address] [facility] [address], [place], [address], 10/07/2024 18:17:09 10/08/19 25 10/07/2024 US, obste tric, bioph ysica l profi le + non-s tress test No observ ation record ed. [email or web address] [address], [place], [address], 10/07/2024 15:18:34 10/08/19 25 10/07/2024 non-s tress test No observ ation record ed. [email or web address] [facility] [address], [place], [address], 10/07/2024 20:27:17 10/08/19 25 10/07/2024 non-s tress test No observ ation record ed. [email or web address] [facility] [address], [place], [address], 10/07/2024 20:29:44 10/08/19 25 09/25/2024 non-s tress test No observ ation record ed. [email or web address] Not Available 10/07 20:46:45 10/15/19 25 10/15/2024 US, obste tric, bioph ysica l profi le + non-s tress test No observ ation record ed. [email or web address] [facility] [address], [place], [address], 10/15/2024 11:29:30 10/15/19 25 10/14/2024 US, obste tric, follo w-up No observ ation record ed. [email or web address] [address], [place], [address], 10/20/2024 22:40:55 10/15/19 25 10/14/2024 non-s tress test No observ ation record ed. [email or web address] [facility] [address], [place], [address], 10/14/2024 15:43:20 10/22/19 US, obste tric, bioph ysica l profi le + non-s tress test No observ ation record ed. [email or web address] [facility] [address], [place], [address], 10/21/2024 14:04:56 10/22/19 US, obste tric, follo w-up No observ ation record ed. [email or web address] [facility] [address], [place], [address], 10/21/2024 14:05:18 10/22/19 25 10/21/2024 US, obste tric, bioph ysica l profi le + non-s tress test No observ ation record ed. [email or web address] [address], [place], [address], 10/21/2024 14:09:09 Result Notes None recorded. Problems Name Problem SNOMED Code Status Onset Date Resolution Date Notes Provider Name and Address Organization Details Recorded Time History of seizure Active none in last 5 years/str ess related Lisa Slater CNM [address], [place], [address], [facility] 5 15:16:44 Migraine 84661386 Active stress related Lisa Slater CNM [address], [place], [address], [facility] 5 15:16:30 Mixed anxiety and depressiv e disorder 927234510 Active has f/u with psychiatr ist Lisa Slater CNM [address], [place], [address], [facility] 5 15:16:25 48407051 Active 2024 Luli thurman, [facility] 5 15:03:31 History of seizure Active none in last 5 years/str ess related Lisa Slater CNM [address], [place], [address], [facility] 15:16:44 Migraine 36534966 Active stress related Lisa Slater CNM [address], [place], [address], [facility] 5 15:16:30 Mixed anxiety and depressiv e disorder 120481651 Active has f/u with psychiatr ist Lisa Slater CNM [address], [place], [address], [facility] 5 15:16:25 Bipolar disorder 29154818 Active no current medicatio n, vraylar prior to Lisa Slater CNM [address], [place], [address], [facility] 5 15:16:00 Pruritic disorder of skin Active 2024 bile acids/cmp ordered 09/11 ursodiol 300mg BID bile acids 7 Rpt labs started nst 32 wks increase to 500mg bid rpt next visit Lisa Slater CNM [address], [place], [address], [facility] 16:23:13 Cholestas is 90562166 Active 2024 Ursodiol increased to 500mg BID Rebecca thurman, [facility] 16:41:33 Cholestas is 60756579 Active 2024 Ursodiol increased to 500mg BID Rebecca Green [facility], [facility] 16:41:33 Problem Notes None recorded. Procedures Surgical History Date Name Laterality Status Provider Name and Address Organization Details Recorded Time 09/26/19 25 endoscopy completed Luli Rivas [facility] 09/25/2024 15:17:22 09/26/19 25 endoscopy completed Luli Rivas [facility] 09/25/2024 15:17:47 03/18/20 23 Colonoscopy completed Luli Rivas [facility] 08/28/2024 15:02:38 03/15/20 23 completed Luli Rivas [facility] 08/28/2024 15:02:37 03/15/20 23 Date of Last Colonoscopy completed Luli Rivas [facility] 08/28/2024 15:02:37 06/15/19 22 Date of Last Pap Smear completed Luli Rivas [facility] 08/28/2024 15:02:37 Imaging Results None recorded. Procedure Notes None recorded. Medical Equipment None Reported. Allergies Allergen ID Allergen Name Allergen Category Reaction Reaction Severity Criticality Documentation Date Start Date Code Code System Note Provider Name and Address Organization Details Recorded Time 11830 cinnamon preparati on food,medi cation hives mild Not available 08/28/2024 44643 5 RxNorm Luli thurman [facility] 5 15:02:37 06423 Compazine medicatio n anaphylax is severe Not available 08/28/2024 48580 6 RxNorm Luli thurman [facility] 5 15:02:37 74067 Bactrim medicatio n anaphylax is severe Not available 08/28/2024 09185 9 RxNorm Luli thurman [facility] 5 15:02:37 62176 wool environme nt hives mild Not available 08/28/2024 36532 UNK Luli Rivas [facility] 5 15:02:37 51907 Penicilli n Not available hives moderate Not available 08/28/2024 62334 RxNorm Luli thurman [facility] 5 15:02:37 Medications Name Sig Start [...] Updated DateTime 10/21/2024 165.74 cm 26.8 kg/m2 28527.96 g 112 mm[Hg] 72 mm[Hg] Luli Rivas [facility] 14:46:33 Social History Question Answer Notes LastModified by Organizat ion Details LastModified Time Tobacco Smoking Status Never Smoker Luli Rivas [facility], [facility] 10/07/2024 15:53:49 Do You Have An Advance Directive? No [email or web address] Information n ot available 08/28/2024 If You Are , What Was Your Level Of Alcohol Consumption Prior To ? Occasional [email or web address] Information not available 10/07/2024 How Many Years Have You Consumed Alcohol? 7 [email or web address] Information not available 08/28/2024 Are You Blind Or Do You Have Difficulty Seeing? No [email or web address] Information n ot available 08/28/2024 What Is Your Level Of Caffeine Consumption? Occasional Information not available 08/28/2024 How Much Tobacco Do You Chew? None [email or web address] Information not available 08/28/2024 In The 14 Days Before Symptom Onset, Have You Had Close Contact With A Laboratory-confirm ed COVID-19 While That Case Was Ill? No Information n ot available 08/28/2024 In The 14 Days Before Symptom Onset, Have You Had Close Contact With A Person Who Is Under Investigation For COVID-19 While That Person Was Ill? No Information not available 08/28/2024 Have You Been To An Area Known To Be High Risk For COVID-19? No [email or web address] Information not available 08/28/2024 Are You Deaf Or Do You Have Serious Difficulty Hearing? No [email or web address] Information not available 08/28/2024 What Type Of Diet Are You Following? REGULAR [email or web address] Information n ot available 08/28/2024 What Is The Highest Grade Or Level Of School You Have Completed Or The Highest Degree You Have Received? VT01142-8 [email or web address] Information not available 08/28/2024 Are There Any Guns Present In Your Home? Yes [email or web address] Information not available 08/28/2024 Do You Use Protection During Sex? No [email or web address] Information not available 08/28/2024 Do You Use Your Seat Belt Or Car Seat Routinely? Yes [email or web address] Information not available 08/28/2024 Do You Have Smoke And Carbon Monoxide Detectors In Your Home? Yes [email or web address] Information not available 08/28/2024 How Much Tobacco Do You Smoke? No [email or web address] Information not available 08/28/2024 Do You Use Sunscreen Routinely? Yes [email or web address] Information not available 08/28/2024 Have You Used IV Drugs? No [email or web address] Information not available 08/28/2024 Do You Have Difficulty Walking Or Climbing Stairs? No [email or web address] Information not available 09/30/2024 Sex: Unknown Functional Status Question Answer Note LastModified by Organizat ion Details LastModified Time Do you use any illicit or recreational drugs? No [email or web address] Information not available 08/28/2024 What is your level of alcohol consumption? None [email or web address] Information not available 10/07/2024 Are you able to walk? YESWOREST [email or web address] Information not available 08/28/2024 Are you able to care for yourself? 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 No [email or web address] Information not available 09/30/2024 What is your exercise level? Moderate [email or web address] Information not available 08/28/2024 Mental Status Question Answer Note LastModified by Organization D etails LastModified Time Do you feel stressed (tense, restless, nervous, or anxious, or unable to sleep at night)? [id number] [email or web address] Information not available 08/28/2024 Family History Relationship Description Onset Age of this Age Resolved Age Notes LastModified by Organization Details LastModified Time Brother Anxiety disorder [email or web address] Not available 08/28 15:02:37 Brother Depressive disorder [email or web address] Not available 08/28 15:02:37 Brother Substance abuse [email or web address] Not available 08/28 15:02:37 Brother Mental disorder [email or web address] Not available 08/28 15:02:37 Father Anxiety disorder [email or web address] Not available 08/28 15:02:37 Father Depressive disorder [email or web address] Not available 08/28 15:02:37 Father Substance abuse [email or web address] Not available 08/28 15:02:37 Mother Disorder of thyroid gland [email or web address] Not available 08/28 15:02:37 Mother Anxiety disorder [email or web address] Not available 08/28 15:02:37 Mother Depressive disorder [email or web address] Not available 08/28 15:02:37 Mother High risk [email or web address] Not available 08/28 15:02:37 Maternal Aunt High risk [email or web address] Not available 08/28 15:02:37 Maternal Grandmother Depressive disorder [email or web address] Not available 08/28 15:02:37 Maternal Grandmother High risk [email or web address] Not available 08/28 15:02:37 Sister Anxiety disorder Not available 08/28 15:02:37 Sister Depressive disorder [email or web address] Not available 08/28 15:02:37 Sister Mental disorder [email or web address] Not available 08/28 15:02:37 Paternal Grandfather Malignant tumor of colon Not available 08/28 15:02:37 Medical History Condition Response Other N Blood Transfusion N Dermatologic Disorders N Gestational Diabetes N Anxiety Disorder Y Autoimmune disease N Arthritis N Polyps N Infertility N Acid Reflux (GERD) N Cancer N Varicosities N Stroke N Neurologic/Epilepsy Y Fibromyalgia N Headaches Y Kidney Disease N Heart Problems N Kidney or Bladder Problems N Eating Disorder N Art (IVF or FET) N Hepatitis/Liver Disease Y No Past Medical History Y Urinary Tract Infection N Asthma N Trauma/Violence N Thrombophilias N Allergies (Food, seasonal, environmental ) Y Breast Cancer N Drug/Latex Allergies/Reactions Y Lung Disease N Defects or Inherited Disease N Breast Problem N Hematologic disorders N Anesthesia Complications N History of STI N Deep Vein Thrombosis N Polycystic ovary syndrome N History of abnormal pap N Endometriosis Y High Cholesterol N Thyroid Problems N GI Problems Y Anemia N Psychiatric Illness N Ovarian Cancer N Diabetes N Pulmonary (TB, Asthma) N Eczema N Abuse/Domestic Violence N Depression/ depression Y Heart Disease N Pre-Eclampsia N Hypertension N Osteoporosis N Gynecological History Statement/Question Response Date of [...] SNOMED-CT Code Diagnosis ICD10 Code Diagnosis Note [id number] Jose Rosales MD [facility] [address] [address] 09/25/2024 14:21:01 09/25/2024 15:10:36 Observational assessment 105025138 Z03.74 O35.8XX0 Z3A.32 [id number] [facility] [address] [address] 09/25/2024 14:21:17 09/28/2024 11:02:01 Gestation period, 32 weeks 3883015 Z3A.32 continue vitamin [id number] [facility] [address],[place] [address] 09/25/2024 15:35:42 09/28/2024 11:08:31 Cholecystitis 12538826 K81.9 [id number] Jose Rosales MD [facility] [address],[place] [address] 09/30/2024 14:40:20 09/30/2024 15:56:51 Cholestasis of 381599102 O26.643 Z3A.32 [id number] [facility] [address],[place] [address] 09/30/2024 14:40:40 10/01/2024 11:01:52 Cholestasis of 500667640 O26.643 [id number] [facility] [address],[place] [address] 09/30/2024 14:41:04 09/30/2024 17:49:41 Gestation period, 32 weeks 1924173 Z3A.32 continue vitamin Cholestasi s of 634406480 O26.643 [id number] Jose Rosales MD [facility] [address],[place] [address] 10/07/2024 13:59:18 10/07/2024 16:02:57 Cholestasis of 351562129 O26.643 Z3A.33 [id number] [facility] [address],[place] [address] 10/07/2024 13:59:32 10/08/2024 12:05:24 Cholestasis of 735380928 O26.643 [id number] [facility] [address],[place] [address] 10/07/2024 13:59:47 10/07/2024 16:52:20 Cholestasis of 781233346 O26.643 Gestation period, 33 weeks 81014118 Z3A.33 [id number] Jose Rosales MD [facility] [address],[place] [address] 10/14/2024 14:20:15 10/14/2024 15:04:32 Cholestasis of 134479692 O26.643 Z3A.34 [id number] [facility] [address],[place] [address] 10/14/2024 14:20:39 10/14/2024 15:49:00 Cholestasis of 099073569 O26.643 [id number] [facility] [address],[place] [address] 10/14/2024 14:20:55 10/14/2024 15:57:46 Gestation period, 34 weeks 23063984 Z3A.34 screening 2437 13230 Z36.85 [id number] Jose Rosales MD [facility] [address],[place] [address] 10/21/2024 13:32:01 10/21/2024 14:12:42 Cholestasis of 279755764 O26.643 Z3A.35 [id number] Lisa Slater [facility] [address],[place] [address] 10/21/2024 13:33:42 10/21/2024 15:07:42 Itching 815757889 L29.9 Gestation period, 35 weeks 30423267 Z3A.35 Health Concerns Section Related Observation LastModified by Organization Detai ls LastModified Time None Recorded Concern Status LastModified by Organization Details LastModified Time None Recorded Payers Encounter Date Sequence Insurance Name Policy Number Policy Silva Covered Member ID Silva Member ID Guarantor Name 10/21/2024 1 [facility] (MEDICAID HMO) [id number] Edelmira Shi [id number] Edelmira Shi OBGyn Episode Ob Episode Information Episode Created Date Number of Fetuses Patient Bloodtype Patient rh Status Prepregnancy Weight lbs Domestic Partner Domestic Partner Phone Father Name Project Asst Status 08/29/19 25 1 A Positive Young Rasheed OPEN Fetus Data First Name Last Name Admitted to NICU Weight (g) Sex Living Outcome Pediatric Complications Fetus ID Race Codes Race Delivery Type [id number] Problems Problem Notes mild right pylectasisvenous lakes rpt 4 weeksIOL scheduled 10/27/24 1700 Problem Name Start Date End Date Resolution Snomed Code Not e History of seizure 2730511718 none in last 5 years/stress related Bipolar disorder 71513207 no current medication, vraylar prior to Pruritic disorder of skin 09/11/2024 7076183388 bile acids/cmp ordered 09/11 ursodiol 300mg BID bile acids 7 Rpt labsstarted nst 32 wksincrease to 500mg bid rpt next visit Cholestasis 10/07/2024 10815056 Ursodio l increased to 500mg BID Migraine 77231214 stress rel ated Mixed anxiety and depressive disorder 766218430 has f/u with psychiatrist Mynor Calculation Initial [...] Weight in lbs Pre/Post Dialysis Refused Weight 151.542510452425 BP Diastolic BP Location Tested BP Systolic BP Type 66 99 Fetus Heart Rate Present Fetus Movement A Yes Comments [place] [facility] [place] medical history, no current meds other than , disc risk for pp depression, has plan with pcp and psychiatrist , resume routine careUS venous nguyen mild pylectasis Flowsheet Date 09/10/2024 Christianson Score Blood Edema Fundus Height Fundus Units Glucose Ketones Leukocytes Nitrite Labor Signs Protein Cervic Dilation Cervic Effacement Cervic Station Type Weight in lbs Pre/Post Dialysis Refused Weight 154.87161574502 BP Diastolic BP Location Tested BP Systolic [...] Type Weight in lbs Pre/Post Dialysis Refused 154.440919256722 BP Diastolic BP Location Tested BP Systolic [...] Type Weight in lbs Pre/Post Dialysis Refused 158.051229636192 BP Diastolic BP Location Tested BP Systolic [...] Weight in lbs Pre/Post Dialysis Refused Weight 158.803207811839 BP Diastolic BP Location Tested BP Systolic [...] Weight in lbs Pre/Post Dialysis Refused Weight 159.314514934331 BP Diastolic BP Location Tested BP Systolic BP Type 68 R arm 105 sitting Fetus Heart Rate Present Fetus Movement Comments Flowsheet Date 09/30/2024 Christianson Score Blood Edema Fundus Height Fundus Units Glucose Ketones Leukocytes Nitrite Labor Signs Protein Cervic Dilation Cervic Effacement Cervic Station neg none Type Weight in lbs Pre/Post Dialysis Refused 159.846385892576 BP Diastolic BP Location Tested BP Systolic [...] Weight in lbs Pre/Post Dialysis Refused Weight 162.885835575942 BP Diastolic BP Location Tested BP Systolic BP Type 73 111 Fetus Heart Rate Present Fetus Movement Comments Flowsheet Date 10/07/2024 Christianson Score Blood Edema Fundus Height Fundus Units Glucose Ketones Leukocytes Nitrite Labor Signs Protein Cervic Dilation Cervic Effacement Cervic Station neg trace Type Weight in lbs Pre/Post Dialysis Refused 162.940627984383 BP Diastolic BP Location Tested BP Systolic [...] Weight in lbs Pre/Post Dialysis Refused Weight 161.821855335216 BP Diastolic BP Location Tested BP Systolic BP Type 74 L arm 111 sitting Fetus Heart Rate Present Fetus Movement A Yes Comments Flowsheet Date 10/14/2024 Christianson Score Blood Edema Fundus Height Fundus Units Glucose Ketones Leukocytes Nitrite Labor Signs Protein Cervic Dilation Cervic Effacement Cervic Station neg trace Type Weight in lbs Pre/Post Dialysis Refused 161.108221510642 BP Diastolic BP Location Tested BP Systolic [...] Weight in lbs Pre/Post Dialysis Refused Weight 162.961427543528 BP Diastolic BP Location Tested BP Systolic [...]
[2024-10-21] MEDS: BETAMETHASONE SOD PHOS/ACETATE 30 MG/5 ML VIAL 12 MG IM (15:20)
== END 2024-10-21 14:38 | disposition home or self-care (01) ==
PROVIDERS: PCP Registered Nurse; Visit Provider Advanced Practice Midwife
DX: O36.8990 Maternal care for other specified fetal problems, unspecified trimester, not applicable or unspecified (principal); Z3A.00 Weeks of gestation of pregnancy not specified
CPT/HCPCS: 96372; J0702

== ENCOUNTER 2024-10-23 00:06 | Inpatient (IN) | payer OTHER, SELFPAY ==
[2024-10-23] VITALS (257 sets, daily range): BP systolic 89–133; BP diastolic 49–89; PULSE 27–158; RESP 16–18; TEMP 36.4–36.8; O2SAT 70–100; BMI 26.6
--- OUTSIDE RECORDS SUMMARY | 2024-10-23 00:11 | XMS_ITS | Continuity of Care Document ---
Author Organization [facility] Address [address] [place] [address] Care Team Providers Care Blockman Name Role Phone ROOSEVELTRAHEL REZA Primary Care Provider Assessment No assessment recorded. Plan of Treatment Reminders Order Date Submit Date Provider Last Modified By Organization Details Last Modified Time Details Appointments INDUCTI ON 2024 12:01A M Lisa Slater CNM Not available Not [...] Abnormal Flag Note LastModifiedBy Organization Detail LastModifiedTime 08/29/19 25 08/28/2024 US, obste tric, follo w-up No observ ation record ed[facility] [address], [place], [address], 08/28/2024 17:50:44 08/29/19 25 08/28/2024 US, obste tric, follo w-up No observ ation record ed. [email or web address] [address], [place], [address], 09/01/2024 22:56:21 09/26/19 25 09/25/2024 US, obste tric, follo w-up No observ ation record ed. [email or web address] [facility] [address], [place], [address], 09/25/2024 17:25:47 09/26/19 25 09/25/2024 US, obste tric, follo w-up No observ ation record ed. [email or web address] [address], [place], [address], 09/29/2024 06:36:16 09/27/19 25 09/25/2024 non-s tress test No observ ation record ed. [email or web address] [facility] [address], [place], [address], 09/26/2024 08:53:04 10/01/19 25 09/30/2024 US, pinky hernandez, bioph ysica l profi le + non-s tress test No observ ation record ed. [email or web address] [facility] [address], [place], [address], 09/30/2024 17:26:21 10/01/19 25 09/30/2024 US, obste tric, follo w-up No observ ation record ed. [email or web address] [address], [place], [address], 10/02/2024 07:04:39 10/01/19 25 09/30/2024 non-s tress test No observ ation record ed. [email or web address] [facility] [address], [place], [address], 09/30/2024 20:21:07 10/01/19 25 09/30/2024 non-s tress test No observ ation record ed. [email or web address] [facility] [address], [place], [address], 09/30/2024 22:01:38 10/08/19 25 10/07/2024 US, obste tric, bioph ysica l profi le + non-s tress test No observ ation record ed. [email or web address] [facility] [address], [place], [address], 10/07/2024 18:17:09 10/08/19 25 10/07/2024 US, obste tric, bioph ysica l profi le + non-s tress test No observ ation record ed. [email or web address] [address], [place], [address], 10/07/2024 15:18:34 10/08/19 25 10/07/2024 non-s tress test No observ ation record ed. [email or web address] [facility] [address], [place], [address], 10/07/2024 20:27:17 10/08/19 25 10/07/2024 non-s tress test No observ ation record ed. [email or web address] [facility] [address], [place], [address], 10/07/2024 20:29:44 10/08/19 25 09/25/2024 non-s tress test No observ ation record ed. [email or web address] Not Available 10/07 20:46:45 10/15/19 25 10/15/2024 US, obste tric, bioph ysica l profi le + non-s tress test No observ ation record ed. [email or web address] [facility] [address], [place], [address], 10/15/2024 11:29:30 10/15/19 25 10/14/2024 US, obste tric, follo w-up No observ ation record ed. [email or web address] [address], [place], [address], 10/20/2024 22:40:55 10/15/19 25 10/14/2024 non-s tress test No observ ation record ed. [email or web address] [facility] [address], [place], [address], 10/14/2024 15:43:20 10/22/19 25 10/21/2024 US, obste tric, bioph ysica l profi le + non-s tress test No observ ation record ed. [email or web address] [facility] [address], [place], [address], 10/21/2024 17:28:40 10/22/19 25 10/21/2024 US, obste tric, follo w-up No observ ation record ed. [email or web address] [facility] [address], [place], [address], 10/21/2024 17:29:03 10/22/19 25 10/21/2024 US, obste tric, follo w-up No observ ation record ed. [email or web address] [address], [place], [address], 10/22/2024 10:32:14 10/22/19 25 10/21/2024 non-s tress test No observ ation record ed. [facility] [address], [place], [address], 10/21/2024 20:59:29 10/22/19 25 10/21/2024 non-s tress test No observ ation record ed. [email or web address] [facility] [address], [place], [address], 10/21/2024 21:01:12 Result Notes None recorded. Problems Name Problem SNOMED Code Status Onset Date Resolution Date Notes Provider Name and Address Organization Details Recorded Time History of seizure Active none in last 5 years/str ess related Lisa Slater CNM [address], [place], [address], [facility] 5 15:16:44 Migraine 40752004 Active stress related Lisa Slater CNM [address], [place], [address], [facility] 5 15:16:30 Mixed anxiety and depressiv e disorder 669049687 Active has f/u with psychiatr ist Lisa Slater CNM [address], [place], [address], [facility] 5 15:16:25 93496125 Active 2024 Luil thurman, [facility] 5 15:03:31 History of seizure Active none in last 5 years/str ess related Lisa Slater CNM [address], [place], [address], [facility] 5 15:16:44 Migraine 39063275 Active stress related Lisa Slater CNM [address], [place], [address], [facility] 5 15:16:30 Mixed anxiety and depressiv e disorder 531551340 Active has f/u with psychiatr ist Lisa Slater CNM [address], [place], [address], [facility] 5 15:16:25 Bipolar disorder 17063528 Active no current medicatio n, vraylar prior to Lisa Slater CNM [address], [place], [address], [facility] 5 15:16:00 Pruritic disorder of skin Active 2024 bile acids/cmp ordered 09/11 ursodiol 300mg BID bile acids 7 Rpt labs started nst 32 wks increase to 500mg bid rpt next visit Lisa Slater CNM [address], [place], [address], [facility] 16:23:13 Cholestas is 27032423 Active 2024 Ursodiol increased to 500mg BID Rebecca thurman, [facility] 16:41:33 Cholestas is 18789066 Active 2024 Ursodiol increased to 500mg BID [facility] 16:41:33 Problem Notes None recorded. Procedures Surgical History Date Name Laterality Status Provider Name and Address Organization Details Recorded Time 09/26/19 25 endoscopy completed Luli Rivas [facility] 09/25/2024 15:17:22 09/26/19 25 endoscopy completed Luli Rivas [facility] 09/25/2024 15:17:47 03/18/20 23 Colonoscopy completed Luli Rivas [facility] 08/28/2024 15:02:38 03/15/20 23 completed Luli Rivas [facility] 08/28/2024 15:02:37 03/15/20 23 Date of Last Colonoscopy completed Luli Rivas [facility] 08/28/2024 15:02:37 06/15/19 Date of Last Pap Smear completed Luli Jenkinstz [facility] 08/28/2024 15:02:37 Imaging Results None recorded. Procedure Notes None recorded. Medical Equipment None Reported. Allergies Allergen ID Allergen Name Allergen Category Reaction Reaction Severity Criticality Documentation Date Start Date Code Code System Note Provider Name and Address Organization Details Recorded Time 50175 cinnamon preparati on food,medi cation hives mild Not available 08/28/2024 74069 5 RxNorm Luli Rivas [facility] 5 15:02:37 55195 Compazine medicatio n anaphylax is severe Not available 08/28/2024 54487 6 RxNorm Luli Rivas [facility] 5 15:02:37 23593 Bactrim medicatio n anaphylax is severe Not available 08/28/2024 60004 9 RxNorm Luli Jenkinstz [facility], [facility] 5 15:02:37 61493 wool environme nt hives mild Not available 08/28/2024 58304 UNK Luli Jenkinstz [facility] 5 15:02:37 00710 Penicilli n Not available hives moderate Not available 08/28/2024 30983 RxNorm Luli Jenkinstz [facility] 5 15:02:37 Medications Name Sig Start [...] Not Available Not Available Not Available Vitals None Recorded Social History Question Answer Notes LastModified by Organizat ion Details LastModified Time Tobacco Smoking Status Never Smoker Luli Rivas [facility], [facility] 10/07/2024 15:53:49 Do You Have An Advance Directive? No Information n ot available 08/28/2024 If You Are , What Was Your Level Of Alcohol Consumption Prior To ? Occasional Information not available 10/07/2024 How Many Years Have You Consumed Alcohol? 7 [email or web address] Information not available 08/28/2024 Are You Blind Or Do You Have Difficulty Seeing? No [email or web address] Information n ot available 08/28/2024 What Is Your Level Of Caffeine Consumption? Occasional [email or web address] Information not available 08/28/2024 How Much Tobacco Do You Chew? None Information not available 08/28/2024 In The 14 Days Before Symptom Onset, Have You Had Close Contact With A Laboratory-confirm ed COVID-19 While That Case Was Ill? No [email or web address] Information n ot available 08/28/2024 In The 14 Days Before Symptom Onset, Have You Had Close Contact With A Person Who Is Under Investigation For COVID-19 While That Person Was Ill? No [email or web address] Information not available 08/28/2024 Have You Been To An Area Known To Be High Risk For COVID-19? No [email or web address] Information not available 08/28/2024 Are You Deaf Or Do You Have Serious Difficulty Hearing? No Information not available 08/28/2024 What Type Of Diet Are You Following? REGULAR [email or web address] Information n ot available 08/28/2024 What Is The Highest Grade Or Level Of School You Have Completed Or The Highest Degree You Have Received? ME42364-2 [email or web address] Information not available 08/28/2024 Are There Any Guns Present In Your Home? Yes [email or web address] Information not available 08/28/2024 Do You Use Protection During Sex? No [email or web address] Information not available 08/28/2024 Do You Use Your Seat Belt Or Car Seat Routinely? Yes [email or web address] Information not available 08/28/2024 Do You Have Smoke And Carbon Monoxide Detectors In Your Home? Yes [email or web address] Information not available 08/28/2024 How Much Tobacco Do You Smoke? No [email or web address] Information not available 08/28/2024 Do You Use Sunscreen Routinely? Yes Information not available 08/28/2024 Have You Used IV Drugs? No Information not available 08/28/2024 Do You Have Difficulty Walking Or Climbing Stairs? No [email or web address] Information not available 09/30/2024 Sex: Unknown Functional Status Question Answer Note LastModified by Organizat ion Details LastModified Time Do you use any illicit or recreational drugs? No [email or web address] Information not available 08/28/2024 What is your level of alcohol consumption? None Information not available 10/07/2024 Are you able to walk? YESWOREST [email or web address] Information not available 08/28/2024 Are you able to care for yourself? 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 No [email or web address] Information not available 09/30/2024 What is your exercise level? Moderate [email or web address] Information not available 08/28/2024 Mental Status Question Answer Note LastModified by Organization D etails LastModified Time Do you feel stressed (tense, restless, nervous, or anxious, or unable to sleep at night)? [id number] [email or web address] Information not available 08/28/2024 Family History Relationship Description Onset Age of this Age Resolved Age Notes LastModified by Organization Details LastModified Time Brother Anxiety disorder Not available 08/28 15:02:37 Brother Depressive disorder [email or web address] Not available 08/28 15:02:37 Brother Substance abuse [email or web address] Not available 08/28 15:02:37 Brother Mental disorder [email or web address] Not available 08/28 15:02:37 Father Anxiety disorder Not available 08/28 15:02:37 Father Depressive disorder Not available 08/28 15:02:37 Father Substance abuse [email or web address] Not available 08/28 15:02:37 Mother Disorder of thyroid gland [email or web address] Not available 08/28 15:02:37 Mother Anxiety disorder [email or web address] Not available 08/28 15:02:37 Mother Depressive disorder Not available 08/28 15:02:37 Mother High risk [email or web address] Not available 08/28 15:02:37 Maternal Aunt High risk [email or web address] Not available 08/28 15:02:37 Maternal Grandmother Depressive disorder [email or web address] Not available 08/28 15:02:37 Maternal Grandmother High risk [email or web address] Not available 08/28 15:02:37 Sister Anxiety disorder Not available 08/28 15:02:37 Sister Depressive disorder [email or web address] Not available 08/28 15:02:37 Sister Mental disorder Not available 08/28 15:02:37 Paternal Grandfather Malignant tumor of colon [email or web address] Not available 08/28 15:02:37 Medical History Condition Response Allergies (Food, seasonal, environmental ) Y Other N Drug/Latex Allergies/Reactions Y Blood Transfusion N Breast Cancer N Dermatologic Disorders N Lung Disease N Defects or Inherited Disease N Breast Problem N Gestational Diabetes N Hematologic disorders N Anesthesia Complications N History of STI N Deep Vein Thrombosis N Polycystic ovary syndrome N Anxiety Disorder Y Autoimmune disease N Arthritis N Polyps N Infertility N Acid Reflux (GERD) N History of abnormal pap N Cancer N Varicosities N Stroke N Neurologic/Epilepsy Y Endometriosis Y High Cholesterol N Fibromyalgia N Headaches Y Kidney Disease N Heart Problems N Thyroid Problems N Kidney or Bladder Problems N GI Problems Y Eating Disorder [...] SNOMED-CT Code Diagnosis ICD10 Code Diagnosis Note [id number] Jsoe Rosales MD [facility] [address] [place] [address] 09/25/2024 14:21:01 09/25/2024 15:10:36 Observational assessment 478150595 Z03.74 O35.8XX0 Z3A.32 [id number] [facility] [address] [place] [address] 09/25/2024 14:21:17 09/28/2024 11:02:01 Gestation period, 32 weeks 2246333 Z3A.32 continue vitamin [id number] [facility] [address] [place] [address] 09/25/2024 15:35:42 09/28/2024 11:08:31 Cholecystitis 48340339 K81.9 [id number] Jose Rosales MD [facility] [address] [place] [address] 09/30/2024 14:40:20 09/30/2024 15:56:51 Cholestasis of 514846557 O26.643 Z3A.32 [id number] [facility] [address] [place] [address] 09/30/2024 14:40:40 10/01/2024 11:01:52 Cholestasis of 985397458 O26.643 [id number] [facility] [address] [address] 09/30/2024 14:41:04 09/30/2024 17:49:41 Gestation period, 32 weeks 0528025 Z3A.32 continue vitamin Cholestasi s of 893670465 O26.643 [id number] Jose Rosales MD [facility] [address] [address] 10/07/2024 13:59:18 10/07/2024 16:02:57 Cholestasis of 394248878 O26.643 Z3A.33 [id number] [facility] [address],[place] [address] 10/07/2024 13:59:32 10/08/2024 12:05:24 Cholestasis of 254114278 O26.643 [id number] [facility] [address] [address] 10/07/2024 13:59:47 10/07/2024 16:52:20 Cholestasis of 957236119 O26.643 Gestation period, 33 weeks 45466431 Z3A.33 [id number] Jose Rosales MD [facility] [address] [address] 10/14/2024 14:20:15 10/14/2024 15:04:32 Cholestasis of 786303809 O26.643 Z3A.34 [id number] [facility] [address] [address] 10/14/2024 14:20:39 10/14/2024 15:49:00 Cholestasis of 789316667 O26.643 [id number] [facility] [address] [address] 10/14/2024 14:20:55 10/14/2024 15:57:46 Gestation period, 34 weeks 95313415 Z3A.34 screening 2437 27021 Z36.85 [id number] Jose Rosales MD [facility] [address] [address] 10/21/2024 13:32:01 10/21/2024 14:12:42 Cholestasis of 643003818 O26.643 Z3A.35 [id number] [facility] [address] [address] 10/21/2024 13:32:44 10/22/2024 09:45:18 Cholestasis of 239367386 O26.643 [id number] [facility] [address] [address] 10/21/2024 13:33:42 10/21/2024 15:07:42 Itching 343509800 L29.9 Gestation period, 35 weeks 91951877 Z3A.35 [id number] [facility] [address] [address] 10/22/2024 09:50:59 10/22/2024 16:31:59 Health Concerns Section Related Observation LastModified by Organization Detai ls LastModified Time None Recorded Concern Status LastModified by Organization Details LastModified Time None Recorded Payers Encounter Date Sequence Insurance Name Policy Number Policy Silva Covered Member ID Silva Member ID Guarantor Name 10/22/[address] 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 Status 08/29/19 25 1 A Positive Young Rasheed OPEN Fetus Data First Name Last Name Admitted to NICU Weight (g) Sex Living Outcome Pediatric Complications Fetus ID Race Codes Race Delivery Type [id number] Problems Problem Notes mild right pylectasisvenous lakes rpt 4 weeksIOL scheduled 10/27/24 1700 Problem Name Start Date End Date Resolution Snomed Code Not e History of seizure 2744126313 none in last 5 years/stress related Bipolar disorder 51689207 no current medication, vraylar prior to Pruritic disorder of skin 09/11/2024 1594370595 bile acids/cmp ordered 09/11 ursodiol 300mg BID bile acids 7 Rpt labsstarted nst 32 wksincrease to 500mg bid rpt next visit Cholestasis 10/07/2024 60015432 Ursodio l increased to 500mg BID Migraine 45990151 stress rel ated Mixed anxiety and depressive disorder 232144979 has f/u with psychiatrist Mynor Calculation Initial [...] Weight in lbs Pre/Post Dialysis Refused Weight 151.088877563380 BP Diastolic BP Location Tested BP Systolic BP Type 66 99 Fetus Heart Rate Present Fetus Movement A Yes Comments pt is transfer of care from [facility], reviewed medical history, no current meds other than , disc risk for pp depression, has plan with pcp and psychiatrist , resume routine careUS venous nguyen mild pylectasis Flowsheet Date 09/10/2024 Christianson Score Blood Edema Fundus Height Fundus Units Glucose Ketones Leukocytes Nitrite Labor Signs Protein Cervic Dilation Cervic Effacement Cervic Station Type Weight in lbs Pre/Post Dialysis Refused Weight 154.34637633132 BP Diastolic BP Location Tested BP Systolic [...] Type Weight in lbs Pre/Post Dialysis Refused 154.162107045475 BP Diastolic BP Location Tested BP Systolic [...] Type Weight in lbs Pre/Post Dialysis Refused 158.164136117335 BP Diastolic BP Location Tested BP Systolic [...] Weight in lbs Pre/Post Dialysis Refused Weight 158.729635312075 BP Diastolic BP Location Tested BP Systolic [...] Weight in lbs Pre/Post Dialysis Refused Weight 159.319235163724 BP Diastolic BP Location Tested BP Systolic BP Type 68 R arm 105 sitting Fetus Heart Rate Present Fetus Movement Comments Flowsheet Date 09/30/2024 Christianson Score Blood Edema Fundus Height Fundus Units Glucose Ketones Leukocytes Nitrite Labor Signs Protein Cervic Dilation Cervic Effacement Cervic Station neg none Type Weight in lbs Pre/Post Dialysis Refused 159.046248576640 BP Diastolic BP Location Tested BP Systolic [...] Weight in lbs Pre/Post Dialysis Refused Weight 162.831542045898 BP Diastolic BP Location Tested BP Systolic BP Type 73 111 Fetus Heart Rate Present Fetus Movement Comments Flowsheet Date 10/07/2024 Christianson Score Blood Edema Fundus Height Fundus Units Glucose Ketones Leukocytes Nitrite Labor Signs Protein Cervic Dilation Cervic Effacement Cervic Station neg trace Type Weight in lbs Pre/Post Dialysis Refused 162.094882078109 BP Diastolic BP Location Tested BP Systolic [...] Weight in lbs Pre/Post Dialysis Refused Weight 161.762335909640 BP Diastolic BP Location Tested BP Systolic BP Type 74 L arm 111 sitting Fetus Heart Rate Present Fetus Movement A Yes Comments Flowsheet Date 10/14/2024 Christianson Score Blood Edema Fundus Height Fundus Units Glucose Ketones Leukocytes Nitrite Labor Signs Protein Cervic Dilation Cervic Effacement Cervic Station neg trace Type Weight in lbs Pre/Post Dialysis Refused 161.004435919153 BP Diastolic BP Location Tested BP Systolic [...] Weight in lbs Pre/Post Dialysis Refused Weight 162.545708554846 BP Diastolic BP Location Tested BP Systolic BP Type 72 112 Fetus Heart Rate Present Fetus Movement Comments Flowsheet Date 10/21/2024 Christianson Score Blood Edema Fundus Height Fundus Units Glucose Ketones Leukocytes Nitrite Labor Signs Protein Cervic Dilation Cervic Effacement Cervic Station Type Weight in lbs Pre/Post Dialysis Refused Weight 162.239295614508 BP Diastolic BP Location Tested BP Systolic BP Type 72 112 Fetus Heart Rate Present Fetus Movement Comments pruritus worsening even afte r increase discussed with dr rosales and will plan IOL for tomorrow evening, +FM check labs, bpp 10/10 f/u iol Flowsheet Date 10/22/2024 Christianson Score Blood Edema Fundus Height Fundus Units Glucose Ketones Leukocytes Nitrite Labor Signs Protein Cervic Dilation Cervic Effacement Cervic Station Type Weight in lbs Pre/Post Dialysis Refused BP Diastolic BP Location Tested BP Systolic BP Type Fetus Heart Rate Present Fetus Movement Comments Menstrual History Last Menstrual Date Menses Monthly [...]
--- OUTSIDE RECORDS SUMMARY | 2024-10-23 00:12 | XMS_ITS | Data Portability ---
Author Organization [facility] Address [address] [place] [address] Care Team Providers Care Design Manager Name Role Phone RAHEL VIDAL Primary Care Provider [phone] Assessment Encounter Date Assessment Date Assessment LastModified [...] Lab bile acids, total, serum 2024 025 [facility] (Lab), [address], [place], [address], 10/22/2024 11:11:07 CMP, serum or plasma 2024 025 [facility] (Lab), [address], [place], [address], 10/22/2024 11:11:07 Referral None recorde d. Procedures None recorde d. Surgeries None recorde d. Imaging non-str ess test 2024 025 [email or web address] [facility], [address], [address], [place], [address], 10/22/2024 09:45:18 US, obstetr ic, biophys ical profile + non-str ess test 2024 [address], [address], [place], [address], 10/21/2024 18:49:12 US, obstetr ic, follow- up 2024 025 [facility], [address], [place], [address], 10/21/2024 21:14:39 US, obstetr ic, biophys ical profile + non-str ess test 2024 [address], [address], [place], [address], 10/15/2024 18:29:56 Medication Orders None recorde d. Patient TargetsNo targets recorded. Patient InstructionsNo instructions recorded. Reason for Referral None Reported. Results Created Date Observation Date Name Description Value Unit Range Abnormal Flag Note LastModifiedBy Organization Detail LastModifiedTime 09/26/1909/25/2024 BILE ACIDS , TOTAL bile acids, total 7 umol/ L 0-10 Test Perfo rmed by: Jono hallman rn, [facility] [address] Not Available [facility] (Lab) [address], [place], [address], 09/26/2024 12:00:15 10/01/19 25 09/30/2024 CMP(C OMPRE HENSI VE METAB OLIC PANEL ) sodium 135 mmol/ L 133-14 6 Not Available [facility] (Lab) [address] [facility], [place], [address], 10/01/2024 12:33:16 10/01/19 25 09/30/2024 CMP(C OMPRE HENSI VE METAB OLIC PANEL ) potassium 3.9 mmol/ L 3.5-5. 1 Not Available [facility] (Lab) [address] [facility], [place], [address], 10/01/2024 12:33:16 10/01/19 25 09/30/2024 CMP(C OMPRE HENSI VE METAB OLIC PANEL ) chloride 103 mmol/ L 98-107 Not Available [facility] (Lab) [address] [facility], [place], [address], 10/01/2024 12:33:16 10/01/19 25 09/30/2024 CMP(C OMPRE HENSI VE METAB OLIC PANEL ) carbon dioxide 27 mmol/ L 21-31 Not Available [facility] (Lab) [address] [facility], [place], [address], 10/01/2024 12:33:16 10/01/19 25 09/30/2024 CMP(C OMPRE HENSI VE METAB OLIC PANEL ) anion gap 5 mmol/ L 4-13 Not Available [facility] (Lab) [address] [place], [address], 10/01/2024 12:33:16 10/01/19 25 09/30/2024 CMP(C OMPRE HENSI VE METAB OLIC PANEL ) blood urea nitrogen 8 mg/dL 7-25 Not Available [facility] (Lab) [address] [place], [address], 10/01/2024 12:33:16 10/01/19 25 09/30/2024 CMP(C OMPRE HENSI VE METAB OLIC PANEL ) creatinine 0.51 mg/dL 0.60-1 .30 low Not Available [facility] (Lab) [address] [facility], [place], [address], 10/01/2024 12:33:16 10/01/19 25 09/30/2024 CMP(C OMPRE HENSI VE METAB OLIC PANEL ) egfrcr (CKD-epi 2020) >90 mL/mi n/1.7 3_m2 >=60 Not Available [facility] (Lab) [address] [facility], [place], [address], 10/01/2024 12:33:16 10/01/19 25 09/30/2024 CMP(C OMPRE HENSI VE METAB OLIC PANEL ) calcium 8.8 mg/dL 8.3-10 .5 Not Available [facility] (Lab) [address] [facility], [place], [address], 10/01/2024 12:33:16 10/01/19 25 09/30/2024 CMP(C OMPRE HENSI VE METAB OLIC PANEL ) glucose 91 mg/dL 70-100 Not Available [facility] (Lab) [address] [facility], [place], [address], 10/01/2024 12:33:16 10/01/19 25 09/30/2024 CMP(C OMPRE HENSI VE METAB OLIC PANEL ) protein, total 6.0 g/dL 6.4-8. 3 low Not Available [facility] (Lab) [address] [facility], [place], [address], 10/01/2024 12:33:16 10/01/19 25 09/30/2024 CMP(C OMPRE HENSI VE METAB OLIC PANEL ) albumin 3.6 g/dL 3.5-5. 0 Not Available [facility] (Lab) [address] [facility], [place], [address], 10/01/2024 12:33:16 10/01/19 25 09/30/2024 CMP(C OMPRE HENSI VE METAB OLIC PANEL ) ALT 11 units /L 9-43 Not Available [facility] (Lab) [address] [facility], [place], [address], 10/01/2024 12:33:16 10/01/19 25 09/30/2024 CMP(C OMPRE HENSI VE METAB OLIC PANEL ) alkaline phosphatase 126 units /L 34-104 high Not Available [facility] (Lab) [address] [facility], [place], [address], 10/01/2024 12:33:16 10/01/19 25 09/30/2024 CMP(C OMPRE HENSI VE METAB OLIC PANEL ) AST 15 units /L 13-39 Not Available [facility] (Lab) [address] [facility], [place], [address], 10/01/2024 12:33:16 10/01/19 25 09/30/2024 CMP(C OMPRE HENSI VE METAB OLIC PANEL ) bilirubin, total 0.3 mg/dL 0.2-1. 2 Not Available [facility] (Lab) [address] [place], [address], 10/01/2024 12:33:16 10/01/19 25 09/30/2024 BILE ACIDS , TOTAL bile acids, total 13 umol/ L 0-10 high Test Perfo rmed by: Jono russo [address] [address] Not Available [facility] (Lab) [address] [place], [address], 10/01/2024 12:33:17 10/15/19 25 10/14/2024 CMP(C OMPRE HENSI VE METAB OLIC PANEL ) sodium 135 mmol/ L 133-14 6 Not Available [facility] (Lab) [address] [place], [address], 10/15/2024 17:18:03 10/15/19 25 10/14/2024 CMP(C OMPRE HENSI VE METAB OLIC PANEL ) potassium 4.0 mmol/ L 3.5-5. 1 Not Available [facility] (Lab) [address] [facility], [place], [address], 10/15/2024 17:18:03 10/15/19 25 10/14/2024 CMP(C OMPRE HENSI VE METAB OLIC PANEL ) chloride 105 mmol/ L 98-107 Not Available [facility] (Lab) [address] [facility], [place], [address], 10/15/2024 17:18:03 10/15/19 25 10/14/2024 CMP(C OMPRE HENSI VE METAB OLIC PANEL ) carbon dioxide 24 mmol/ L 21-31 Not Available [facility] (Lab) [address] [facility], [place], [address], 10/15/2024 17:18:03 10/15/19 25 10/14/2024 CMP(C OMPRE HENSI VE METAB OLIC PANEL ) anion gap 6 mmol/ L 4-13 Not Available [facility] (Lab) [address] [facility], [place], [address], 10/15/2024 17:18:03 10/15/19 25 10/14/2024 CMP(C OMPRE HENSI VE METAB OLIC PANEL ) blood urea nitrogen 5 mg/dL 7-25 low Not Available [facility] (Lab) [address] [place], [address], 10/15/2024 17:18:03 10/15/19 25 10/14/2024 CMP(C OMPRE HENSI VE METAB OLIC PANEL ) creatinine 0.44 mg/dL 0.60-1 .30 low Not Available [facility] (Lab) [address] [facility], [place], [address], 10/15/2024 17:18:03 10/15/19 25 10/14/2024 CMP(C OMPRE HENSI VE METAB OLIC PANEL ) egfrcr (CKD-epi 2020) >90 mL/mi n/1.7 3_m2 >=60 Not Available [facility] (Lab) [address] [facility], [place], [address], 10/15/2024 17:18:03 10/15/19 25 10/14/2024 CMP(C OMPRE HENSI VE METAB OLIC PANEL ) calcium 8.7 mg/dL 8.3-10 .5 Not Available [facility] (Lab) [address] [facility], [place], [address], 10/15/2024 17:18:03 10/15/19 25 10/14/2024 CMP(C OMPRE HENSI VE METAB OLIC PANEL ) glucose 63 mg/dL 70-100 low Not Available [facility] (Lab) [address] [facility], [place], [address], 10/15/2024 17:18:03 10/15/19 25 10/14/2024 CMP(C OMPRE HENSI VE METAB OLIC PANEL ) protein, total 6.1 g/dL 6.4-8. 3 low Not Available [facility] (Lab) [address] [facility], [place], [address], 10/15/2024 17:18:03 10/15/19 25 10/14/2024 CMP(C OMPRE HENSI VE METAB OLIC PANEL ) albumin 3.5 g/dL 3.5-5. 0 Not Available [facility] (Lab) [address] [place], [address], 10/15/2024 17:18:03 10/15/19 25 10/14/2024 CMP(C OMPRE HENSI VE METAB OLIC PANEL ) ALT 10 units /L 9-43 Not Available [facility] (Lab) [address] [place], [address], 10/15/2024 17:18:03 10/15/19 25 10/14/2024 CMP(C OMPRE HENSI VE METAB OLIC PANEL ) alkaline phosphatase 180 units /L 34-104 high Not Available [facility] (Lab) [address] [place], [address], 10/15/2024 17:18:03 10/15/19 25 10/14/2024 CMP(C OMPRE HENSI VE METAB OLIC PANEL ) AST 15 units /L 13-39 Not Available [facility] (Lab) [address] [facility], [place], [address], 10/15/2024 17:18:03 10/15/19 25 10/14/2024 CMP(C OMPRE HENSI VE METAB OLIC PANEL ) bilirubin, total 0.3 mg/dL 0.2-1. 2 Not Available [facility] (Lab) [address] [facility], [place], [address], 10/15/2024 17:18:03 10/15/19 25 10/14/2024 BILE ACIDS , TOTAL bile acids, total 18 umol/ L 0-10 high Test Perfo rmed by: Jono hallman rn [facility] [address] Not Available [facility] (Lab) [address] [facility], [place], [address], 10/15/2024 17:18:04 10/15/19 25 10/14/2024 CULTU RE: GROUP B STREP SCREE N, REFLE X SUSCE PTIBI LITY result report SEE RESULT S BELOW Test: Cultu re: Group B Strep , Refle x Susce ptibi lity ([facility]/ [facility] ) Speci men Sourc e: Vagin a/Rec sanjeev Speci men Type: Vagin al/Re ctal Speci men Date: 2024 1517 Resul t Date: 2024 1411 Resul t Statu s: Final resul t Abnor mal: No Janeth aguilar Lab: [facility] [address] [facility] [address] Tel: CULTU RE ----- ----- ----- --- No Group B strep isola pan at 2 days (xiao ctive broth enhan cemen t) Not Available [facility] (Lab) [address], [place], [address], 10/17/2024 15:14:29 09/26/19 25 09/25/2024 US, obste tric, follo w-up No observ ation record ed. [email or web address] [facility] [address], [place], [address], 09/25/2024 17:25:47 09/26/19 25 09/25/2024 US, obste tric, follo w-up No observ ation record ed. [email or web address] [address], [place], [address], 09/29/2024 06:36:16 09/27/19 25 09/25/2024 non-s tress test No observ ation record ed. [facility] [address], [place], [address], 09/26/2024 08:53:04 10/01/19 25 09/30/2024 US, obste tric, bioph ysica l profi le + non-s tress test No observ ation record ed. [email or web address] [facility] [address], [place], [address], 09/30/2024 17:26:21 10/01/19 25 09/30/2024 US, obste tric, follo w-up No observ ation record ed. [address], [place], [address], 10/02/2024 07:04:39 10/01/19 25 09/30/2024 non-s tress test No observ ation record ed. [email or web address] [facility] [address], [place], [address], 09/30/2024 20:21:07 10/01/19 25 09/30/2024 non-s tress test No observ ation record ed. [email or web address] [facility] [address], [place], [address], 09/30/2024 22:01:38 10/08/19 25 10/07/2024 US, obste tric, bioph ysica l profi le + non-s tress test No observ ation record ed. [email or web address] [facility] [address], [place], [address], 10/07/2024 18:17:09 10/08/19 25 10/07/2024 US, obste tric, bioph ysica l profi le + non-s tress test No observ ation record ed. [email or web address] [address], [place], [address], 10/07/2024 15:18:34 10/08/1910/07/2024 non-s tress test No observ ation record ed. [email or web address] [facility] [address], [place], [address], 10/07/2024 20:27:17 10/08/19 25 10/07/2024 non-s tress test No observ ation record ed. [email or web address] [facility] [address], [place], [address], 10/07/2024 20:29:44 10/08/19 25 09/25/2024 non-s tress test No observ ation record ed. Not Available 10/07 20:46:45 10/15/19 25 10/15/2024 US, obste tric, bioph ysica l profi le + non-s tress test No observ ation record ed. [email or web address] [facility] [address], [place], [address], 10/15/2024 11:29:30 10/15/19 25 10/14/2024 US, obste tric, follo w-up No observ ation record ed. [email or web address] [address], [place], [address], 10/20/2024 22:40:55 10/15/19 25 10/14/2024 non-s tress test No observ ation record ed. [email or web address] [facility] [address], [place], [address], 10/14/2024 15:43:20 10/22/19 25 10/21/2024 US, obste tric, bioph ysica l profi le + non-s tress test No observ ation record ed. [email or web address] [facility] [address], [place], [address], 10/21/2024 17:28:40 10/22/19 25 10/21/2024 US, obste tric, follo w-up No observ ation record ed. [email or web address] [facility] [address], [place], [address], 10/21/2024 17:29:03 10/22/19 25 10/21/2024 US, obste tric, follo w-up No observ ation record ed. [email or web address] [address], [place], [address], 10/22/2024 10:32:14 10/22/19 25 10/21/2024 non-s tress test No observ ation record ed. [email or web address] [facility] [address], [place], [address], 10/21/2024 20:59:29 10/22/19 25 10/21/2024 non-s tress test No observ ation record ed. [email or web address] [facility] [address], [place], [address], 10/21/2024 21:01:12 Result Notes None recorded. Problems Name Problem SNOMED Code Status Onset Date Resolution Date Notes Provider Name and Address Organization Details Recorded Time History of seizure Active none in last 5 years/str ess related Lisa Slater CNM [address], [place], [address], [facility] 5 15:16:44 Migraine 04674141 Active stress related Lisa Slater CNM [address], [place], [address], [facility] 5 15:16:30 Mixed anxiety and depressiv e disorder 721406506 Active has f/u with psychiatr ist Lisa Slater CNM [address], [place], [address], [facility] 5 15:16:25 90367055 Active 2024 Luli thurman, [facility] 5 15:03:31 History of seizure Active none in last 5 years/str ess related Lisa Slater CNM [address], [place], [address], [facility] 5 15:16:44 Migraine 18067780 Active stress related Lisa Slater CNM [address], [place], [address], [facility] 5 15:16:30 Mixed anxiety and depressiv e disorder 043140209 Active has f/u with psychiatr ist Lisa Slater CNM [address], [place], [address], [facility] 5 15:16:25 Bipolar disorder 86152175 Active no current medicatio n, vraylar prior to Lisa Slater CNM [address], [place], [address], [facility] 15:16:00 Pruritic disorder of skin Active 2024 bile acids/cmp ordered 09/11 ursodiol 300mg BID bile acids 7 Rpt labs started nst 32 wks increase to 500mg bid rpt next visit Lisa Slater CNM [address], [place], [address], [facility] 16:23:13 Cholestas is 42606655 Active 2024 Ursodiol increased to 500mg BID Rebecca Broderick [facility], [facility] 16:41:33 Cholestas is 80594362 Active 2024 Ursodiol increased to 500mg BID Rebecca Green olman, [facility] 16:41:33 Problem Notes None recorded. Procedures Surgical History Date Name Laterality Status Provider Name and Address Organization Details Recorded Time 09/26/19 25 endoscopy completed Luli Rivas [facility] 09/25/2024 15:17:22 09/26/19 25 endoscopy completed Luli Rivas [facility] 09/25/2024 15:17:47 03/18/20 23 Colonoscopy completed Lulichristy Rivas [facility] 08/28/2024 15:02:38 03/15/20 23 completed Luli Rivas [facility] 08/28/2024 15:02:37 03/15/20 23 Date of Last Colonoscopy completed Lulichristy Rivas [facility] 08/28/2024 15:02:37 06/15/19 22 Date of Last Pap Smear completed Lulichristy Rivas [facility] 08/28/2024 15:02:37 Imaging Results None recorded. Procedure Notes None recorded. Medical Equipment None Reported. Allergies Allergen ID Allergen Name Allergen Category Reaction Reaction Severity Criticality Documentation Date Start Date Code Code System Note Provider Name and Address Organization Details Recorded Time 32752 cinnamon preparati on food,medi cation hives mild Not available 08/28/2024 54243 5 RxNorm Luli Rivas olman, [facility] 5 15:02:37 14541 Compazine medicatio n anaphylax is severe Not available 08/28/2024 58346 6 RxNorm Luli Rivas [facility], [facility] 5 15:02:37 29657 Bactrim medicatio n anaphylax is severe Not available 08/28/2024 65932 9 RxNorm Luli Jenkinstz [facility], [facility] 5 15:02:37 80254 wool environme nt hives mild Not available 08/28/2024 37199 UNK Luli Jenkinstz [facility], [facility] 5 15:02:37 76489 Penicilli n Not available hives moderate Not available 08/28/2024 22602 RxNomarlene Rivas [facility] 5 15:02:37 Medications Name [...] Address Organization Details Last Updated DateTime 10/14/2024 70703.37 157 g 26.6 kg/m2 165.74 cm 111 mm[Hg] 74 mm[Hg] Luli Rivas [facility] 15:43:38 Date Recorded Body height Body mass index (BMI) Body weight Systolic blood pressure Diastolic blood pressure Provider Name and Address Organization Details Last Updated DateTime 10/14/2024 165.74 cm 26.6 kg/m2 14112.37 g 111 mm[Hg] 74 mm[Hg] Alexus Chris [facility] 15:41:29 Date Recorded Body height Body mass index (BMI) Body weight Body height Body mass index (BMI) Body weight Systolic blood pressure Diastolic blood pressure Systolic blood pressure Diastolic blood pressure Provider Name and Address Organization Details Last Updated DateTime 165.74 cm 26.8 kg/m2 93116.9 6 g 165.74 cm 26.8 kg/m2 87098.9 6 g 112 mm[Hg] 72 mm[Hg] 112 mm[Hg] 72 mm[Hg] Luli Rivas [facility] 20:58:11 Social History Question Answer Notes LastModified by Organizat ion Details LastModified Time Tobacco Smoking Status Never Smoker Luli Rivas [facility], [facility] 10/07/2024 15:53:49 Do You Have An Advance Directive? No [email or web address] Information n ot available 08/28/2024 If You Are , What Was Your Level Of Alcohol Consumption Prior To ? Occasional [email or web address] Information not available 10/07/2024 How Many Years Have You Consumed Alcohol? 7 Information not available 08/28/2024 Are You Blind Or Do You Have Difficulty Seeing? No [email or web address] Information n ot available 08/28/2024 What Is Your Level Of Caffeine Consumption? Occasional [email or web address] Information not available 08/28/2024 How Much Tobacco Do You Chew? None [email or web address] Information not available 08/28/2024 In The 14 Days Before Symptom Onset, Have You Had Close Contact With A Laboratory-confirm ed COVID-19 While That Case Was Ill? No [email or web address] Information n ot available 08/28/2024 In The 14 Days Before Symptom Onset, Have You Had Close Contact With A Person Who Is Under Investigation For COVID-19 While That Person Was Ill? No [email or web address] Information not available 08/28/2024 Have You Been To An Area Known To Be High Risk For COVID-19? No [email or web address] Information not available 08/28/2024 Are You Deaf Or Do You Have Serious Difficulty Hearing? No [email or web address] Information not available 08/28/2024 What Type Of Diet Are You Following? REGULAR Information n ot available 08/28/2024 What Is The Highest Grade Or Level Of School You Have Completed Or The Highest Degree You Have Received? DM29711-4 [email or web address] Information not available 08/28/2024 Are There Any Guns Present In Your Home? Yes [email or web address] Information not available 08/28/2024 Do You Use Protection During Sex? No [email or web address] Information not available 08/28/2024 Do You Use Your Seat Belt Or Car Seat Routinely? Yes [email or web address] Information not available 08/28/2024 Do You Have Smoke And Carbon Monoxide Detectors In Your Home? Yes [email or web address] Information not available 08/28/2024 How Much Tobacco Do You Smoke? No [email or web address] Information not available 08/28/2024 Do You Use Sunscreen Routinely? Yes [email or web address] Information not available 08/28/2024 Have You Used IV Drugs? No [email or web address] Information not available 08/28/2024 Do You Have Difficulty Walking Or Climbing Stairs? No Information not available 09/30/2024 Sex: Unknown Functional Status Question Answer Note LastModified by Organizat ion Details LastModified Time Do you use any illicit or recreational drugs? No [email or web address] Information not available 08/28/2024 What is your level of alcohol consumption? None [email or web address] Information not available 10/07/2024 Are you able to walk? YESWOREST [email or web address] Information not available 08/28/2024 Are you able to care for yourself? Yes [email or web address] Information not available 09/30/2024 What is your occupation? [employer] [email or web address] Information not available 09/25/2024 Do you have difficulty dressing or bathing? No [email or web address] Information not available 09/30/2024 What is your exercise level? Moderate [email or web address] Information not available 08/28/2024 Mental Status Question Answer Note LastModified by Organization D etails LastModified Time Do you feel stressed (tense, restless, nervous, or anxious, or unable to sleep at night)? [id number] Information not available 08/28/2024 Family History Relationship Description Onset Age of this Age Resolved Age Notes LastModified by Organization Details LastModified Time Brother Anxiety disorder [email or web address] Not available 08/28 15:02:37 Brother Depressive disorder [email or web address] Not available 08/28 15:02:37 Brother Substance abuse [email or web address] Not available 08/28 15:02:37 Brother Mental disorder [email or web address] Not available 08/28 15:02:37 Father Anxiety disorder [email or web address] Not available 08/28 15:02:37 Father Depressive disorder Not available 08/28 15:02:37 Father Substance abuse [email or web address] Not available 08/28 15:02:37 Mother Disorder of thyroid gland [email or web address] Not available 08/28 15:02:37 Mother Anxiety disorder Not available 08/28 15:02:37 Mother Depressive disorder Not available 08/28 15:02:37 Mother High risk Not available 08/28 15:02:37 Maternal Aunt High risk [email or web address] Not available 08/28 15:02:37 Maternal Grandmother Depressive disorder Not available 08/28 15:02:37 Maternal Grandmother High risk [email or web address] Not available 08/28 15:02:37 Sister Anxiety disorder Not available 08/28 15:02:37 Sister Depressive disorder [email or web address] Not available 08/28 15:02:37 Sister Mental disorder [email or web address] Not available 08/28 15:02:37 Paternal Grandfather Malignant tumor of colon [email or web address] Not available 08/28 15:02:37 Medical History Condition [...] SNOMED-CT Code Diagnosis ICD10 Code Diagnosis Note [id number] Jose Rosales MD [facility] [address] [address] 08/28/2024 13:16:23 08/28/2024 14:11:05 Suspected abnormality affecting management of mother 4713860329 5230537 O35.8XX0 O26.849 Z3A.28 [id number] Lisa Slater CNM [facility] [address],[place] [address] 08/28/2024 13:17:07 08/28/2024 15:22:40 Routine care 422486685 Z34.93 Venereal d isease screening 860071428 Z11.3 Gestation period, 28 weeks 03363443 Z3A.28 [id number] MD Debo Jacinto [address],[place] [address] 09/10/2024 14:54:34 09/10/2024 15:31:12 Third trimester 01111520 Z34.03 [id number] Jose Rosales MD [facility] [address],[place] [address] 09/11/2024 12:25:13 09/11/2024 12:59:49 Urinary tract infectious disease 72696080 N39.0 [id number] Jose Rosales MD [facility] [address],[place] [address] 09/25/2024 14:21:01 09/25/2024 15:10:36 Observational assessment [id number] Z03.74 O35.8XX0 Z3A.32 [id number] [facility] [address],[place] [address] 09/25/2024 14:21:17 09/28/2024 11:02:01 Gestation period, 32 weeks 7228174 Z3A.32 continue vitamin [id number] Lisa Slater CNM [facility] [address] [place] [address] 09/25/2024 15:35:42 09/28/2024 11:08:31 Cholecystitis 29536334 K81.9 [id number] Jose Rosales MD [facility] [address] [place] [address] 09/30/2024 14:40:20 09/30/2024 15:56:51 Cholestasis of 332418972 O26.643 Z3A.32 [id number] Lisa Slater [facility] [address],[place] [address] 09/30/2024 14:40:40 10/01/2024 11:01:52 Cholestasis of 891336389 O26.643 [id number] Lisa Slater [facility] [address],[place] [address] 09/30/2024 14:41:04 09/30/2024 17:49:41 Gestation period, 32 weeks 9491725 Z3A.32 continue vitamin Cholestasi s of 724327181 O26.643 [id number] Jose Rosales MD [facility] [address],[place] [address] 10/07/2024 13:59:18 10/07/2024 16:02:57 Cholestasis of 693784577 O26.643 Z3A.33 [id number] Lisa Slater [facility] [address],[place] [address] 10/07/2024 13:59:32 10/08/2024 12:05:24 Cholestasis of 290780976 O26.643 [id number] Lisa Slater [facility] [address],[place] [address] 10/07/2024 13:59:47 10/07/2024 16:52:20 Cholestasis of 235528817 O26.643 Gestation period, 33 weeks 21752126 Z3A.33 [id number] Jose Rosales MD [facility] [address],[place] [address] 10/14/2024 14:20:15 10/14/2024 15:04:32 Cholestasis of 000139137 O26.643 Z3A.34 [id number] [facility] [address],[place] [address] 10/14/2024 14:20:39 10/14/2024 15:49:00 Cholestasis of 414926627 O26.643 [id number] [facility] [address],[place] [address] 10/14/2024 14:20:55 10/14/2024 15:57:46 Gestation period, 34 weeks 00004806 Z3A.34 screening 2437 68544 Z36.85 [id number] Jose Rosales MD [facility] [address],[place] [address] 10/21/2024 13:32:01 10/21/2024 14:12:42 Cholestasis of 092337791 O26.643 Z3A.35 [id number] [facility] [address],[place] [address] 10/21/2024 13:32:44 10/22/2024 09:45:18 Cholestasis of 554875035 O26.643 [id number] [facility] [address],[place] [address] 10/21/2024 13:33:42 10/21/2024 15:07:42 Itching 298635448 L29.9 Gestation period, 35 weeks 70237946 Z3A.35 [id number] [facility] [address],[place] [address] 1 10/22/2024 09:50:59 10/22/2024 16:31:59 Health Concerns Section Related Observation LastModified by Organization Detai ls LastModified Time None Recorded Concern Status LastModified by Organization Details LastModified Time None Recorded Advance Directives Directive N: Payers Encounter Date Sequence Insurance Name Policy Number Policy Silva Covered Member ID Silva Member ID Guarantor Name 10/14/2024 1 [facility] (MEDICAID HMO) [id number] 0003 [facility] [id number] Edelmira Ren 10/21/2024 1 [facility] (MEDICAID HMO) [id number] Edelmira Rench [id number] Edelmira Rench 10/21/2024 1 [facility] (MEDICAID HMO) [id number] Edelmira Rench [id number] Edelmira Rench 10/21/2024 1 [facility] (MEDICAID HMO) [id number] Edelmira Rench [id number] Edelmira Rench 10/22/2024 1 [facility] (MEDICAID HMO) [id number] 0003 Edelmira Rench [id number] Edelmira Rench OBGyn Episode Ob Episode Information Episode Created Date Number of Fetuses Patient Bloodtype Patient rh Status Prepregnancy Weight lbs Domestic Partner Domestic Partner Phone Father Name Regulatory Services Consultant Status 08/29/19 1 A Positive Young Rasheed OPEN Fetus Data First Name Last Name Admitted to NICU Weight (g) Sex Living Outcome Pediatric Complications Fetus ID Race Codes Race Delivery Type [id number] Problems Problem Notes mild right pylectasisvenous lakes rpt 4 weeksIOL scheduled 10/27/24 1700 Problem Name Start Date End Date Resolution Snomed Code Not e History of seizure 3745284019 none in last 5 years/stress related Bipolar disorder 91552453 no current medication, vraylar prior to Pruritic disorder of skin 09/11/2024 1909313462 bile acids/cmp ordered 09/11 ursodiol 300mg BID bile acids 7 Rpt labsstarted nst 32 wksincrease to 500mg bid rpt next visit Cholestasis 10/07/2024 64750698 Ursodio l increased to 500mg BID Migraine 95414846 stress rel ated Mixed anxiety and depressive disorder 198065655 has f/u with psychiatrist Mynor Calculation Initial Mynor Date Initial Exam Date Initial Exam Provider Initial Ultrasound Date Last Menstrual Period Date Ultra Sound Weeks Gestation 08/28/2024 Lisa Nohemy 02/01/2024 0 Eighteen To Twenty Week Mynor [...] Weight in lbs Pre/Post Dialysis Refused Weight 151.731697204406 BP Diastolic BP Location Tested BP Systolic BP Type 66 99 Fetus Heart Rate Present Fetus Movement A Yes Comments pt is transfer of care from [facility], reviewed medical history, no current meds other than , disc risk for pp depression, has plan with pcp and psychiatrist , resume routine careUS venous nguyen mild pylectasis Flowsheet Date 09/10/2024 Christianson Score Blood Edema Fundus Height Fundus Units Glucose Ketones Leukocytes Nitrite Labor Signs Protein Cervic Dilation Cervic Effacement Cervic Station Type Weight in lbs Pre/Post Dialysis Refused Weight 154.36587765719 BP Diastolic BP Location Tested BP Systolic [...] Type Weight in lbs Pre/Post Dialysis Refused 154.513890068158 BP Diastolic BP Location Tested BP Systolic [...] Type Weight in lbs Pre/Post Dialysis Refused 158.552584317766 BP Diastolic BP Location Tested BP Systolic [...] Weight in lbs Pre/Post Dialysis Refused Weight 158.454214352644 BP Diastolic BP Location Tested BP Systolic [...] Weight in lbs Pre/Post Dialysis Refused Weight 159.033362614981 BP Diastolic BP Location Tested BP Systolic BP Type 68 R arm 105 sitting Fetus Heart Rate Present Fetus Movement Comments Flowsheet Date 09/30/2024 Christianson Score Blood Edema Fundus Height Fundus Units Glucose Ketones Leukocytes Nitrite Labor Signs Protein Cervic Dilation Cervic Effacement Cervic Station neg none Type Weight in lbs Pre/Post Dialysis Refused 159.170882491641 BP Diastolic BP Location Tested BP Systolic BP Type 68 105 Fetus Heart Rate Present Fetus Movement A Yes Comments Patient is having some tight ing. reviewed precautions, education nst R, doing well call for preadmit bpp 01/01, f/u as scheduled will discuss delivery timing [...] Weight in lbs Pre/Post Dialysis Refused Weight 162.829760019693 BP Diastolic BP Location Tested BP Systolic BP Type 73 111 Fetus Heart Rate Present Fetus Movement Comments Flowsheet Date 10/07/2024 Christianson Score Blood Edema Fundus Height Fundus Units Glucose Ketones Leukocytes Nitrite Labor Signs Protein Cervic Dilation Cervic Effacement Cervic Station neg trace Type Weight in lbs Pre/Post Dialysis Refused 162.405012909977 BP Diastolic BP Location Tested BP Systolic [...] Weight in lbs Pre/Post Dialysis Refused Weight 161.692992386723 BP Diastolic BP Location Tested BP Systolic BP Type 74 L arm 111 sitting Fetus Heart Rate Present Fetus Movement A Yes Comments Flowsheet Date 10/14/2024 Christianson Score Blood Edema Fundus Height Fundus Units Glucose Ketones Leukocytes Nitrite Labor Signs Protein Cervic Dilation Cervic Effacement Cervic Station neg trace Type Weight in lbs Pre/Post Dialysis Refused 161.761986457782 BP Diastolic BP Location Tested BP Systolic [...] Weight in lbs Pre/Post Dialysis Refused Weight 162.571373713358 BP Diastolic BP Location Tested BP Systolic BP Type 72 112 Fetus Heart Rate Present Fetus Movement Comments Flowsheet Date 10/21/2024 Christianson Score Blood Edema Fundus Height Fundus Units Glucose Ketones Leukocytes Nitrite Labor Signs Protein Cervic Dilation Cervic Effacement Cervic Station Type Weight in lbs Pre/Post Dialysis Refused Weight 162.008557475669 BP Diastolic BP Location Tested BP Systolic [...]
--- OUTSIDE RECORDS SUMMARY | 2024-10-23 00:12 | XMS_ITS | Data Portability ---
Author Organization [facility] [place] [facility], [id number] Address [address] [place] [id number] Assessment No assessment recorded. Plan of Treatment Reminders Order Date Submit Date Provider Last Modified By Organization Details Last Modified Time Details Appointments None recorded. Lab CBC w/ diff - between 08/21-[address] Lab, [address] [place] [address], [address], 5 11:21:09 HIV 1+2 AB + HIV 1 p24 Ag, qualitative immunoassay , serum [address] [place] [address] Lab, [address] [place] [address], [address], 5 11:21:10 syphilis Ab, igg [address] [place] [address] (Lab), [address] [place] [address], [address], 5 11:21:10 antibody screen, serum or plasma [address] Lab, [address] [place] [address], [address], 5 11:21:10 glucose tolerance test, post-50G, 1-hour [address] [place] [address] Lab, [address] [place], [place] [address], [place], [address], 11:21:10 Referral None recorded. Procedures None recorded. Surgeries None recorded. Imaging US, obstetric, follow-up 2024 025 [facility] [place], [address], 10:39:42 US, obstetric - growth and DEQUAN 2024 025 DIANNA [facility] [place], [address], 13:18:00 Medication Orders None recorded. Patient TargetsNo targets recorded. Patient InstructionsNo instructions recorded. Reason for Referral None Reported. Results Created Date Observation Date Name Description Value Unit Range Abnormal Flag Note LastModifiedBy Organization Detail LastModifiedTime 08/01/1907/28/2024 non-s tress test No observ ation record ed. [email or web address] Not Available 2024 10:36:35 08/09/19 25 08/07/2024 US, obste tric No observ ation record ed. [email or web address] [facility] [place], [address], 08/11/2024 17:47:59 08/23/19 25 08/14/2024 non-s tress test No observ ation record ed. [email or web address] [facility] [address] [place], [address], 08/30/2024 08:16:06 Result Notes None recorded. Problems Name Problem SNOMED Code Status Onset Date Resolution Date Notes Provider Name and Address Organization Details Recorded Time 05639032 Active 2024 Suzanne thurman [facility] [place] [facility] 16:56:39 Attention deficit hyperacti vity disorder 474383645 Active 2024 Suzanne Emilicharles null, [facility] 5 09:01:58 Asthma 088365195 Active RAMESH MAURO CNM [address], [place], [address] , [facility] 5 10:14:11 Bipolar disorder 46585730 Active RAMESH BORJAS [address], [place], [address] , [facility] 5 10:14:21 Migraine 66649484 Active RAMESH BORJAS [address] [email or web address] [address], [place], [address] , [facility] 5 10:14:27 Seizure disorder 099565280 Active 2024 chronic complex migraine w/onset petit mal seizure per pt dec 2020, Dr Thomas neurologis t at [facility] prescribed rizatripta n in 02/2019 for migraine and PCP Lor Mccallum and Aniya Agarwal refill for hew now. Stopped her amitryptil ine for stress in Apr 2019 as no sz for 2 yr and none since. Suzanne Wilkins null, [facility] 5 09:04:58 Nulliparo us 704724713 Active ASA RAMESH BORJAS [address], [place], [address] , [facility] 5 10:14:03 Asthma 814426150 Active RAMESH BORJAS [address], [place], [address] , [facility] 5 10:14:11 Bipolar disorder 33603978 Active RAMESH BORJAS [address], [place], [address] , [facility] 5 10:14:21 Migraine 84931197 Active RAMESH JHADIANA CN [address], [facility] [place], [address] , [facility] 5 10:14:27 Marijuana user 293261502 Active marijuana, recom stop RAMESH JHADIANA CN [address], [facility] [place], [address] , [facility] 5 10:14:49 Exposure to [place] a pertussis Active 2024 DESTINEY DALAL MD [address], [place], [address] , [facility] for [facility] 5 19:29:01 Depressed bipolar I disorder 23749207 Active Bipolar disorder with depression , Problem Code: 296.50; Problem Code Type: ICD-9; Not Available [facility] 5 12:21:29 Epilepsy 18611742 Active Seizure Disorder, chronic complex migraine w [...] ICD-9; Startdate: 'resolved apr 2019'; Not Available [facility] 5 12:21:29 Problem Notes None recorded. Procedures Surgical History Date Name Laterality Status Provider Name and Address Organization Details Recorded Time 06/08/19 Date of Last Pap Smear completed Suzanne Wilkins [facility] 07/24/2024 09:00:00 05/27/19 23 Colonoscopy completed Suzanne Wilkins [facility] 07/24/2024 08:58:53 05/27/19 23 endoscopy completed Suzanne Wilkins [facility] 07/24/2024 08:59:05 endoscopy completed Not Available [facility] 09/24/2024 14:02:28 colonoscopy completed Not Available [facility] 09/24/2024 14:02:29 Imaging Results None recorded. Procedure Notes None recorded. Medical Equipment None Reported. Allergies Allergen ID Allergen Name Allergen Category Reaction Reaction Severity Criticality Documentation Date Start Date Code Code System Note Provider Name and Address Organization Details Recorded Time 533695 amoxicill in medicatio n hives Not available Not available 07/24/2024 723 RxNorm Suzanne Ketten null, [place] - [facility] 5 09:00:59 691110 Bactrim medicatio n Not available Not available Not available 07/24/2024 53726 9 RxNorm Suzanne Ketten [place], [place] - [facility] 5 09:01:06 920824 cinnamon preparati on food,medi cation hives Not available Not available 07/24/2024 40558 5 RxNorm Suzanne Ketten null, [place] - [facility] 5 09:01:19 681009 Compazine medicatio n anaphylax is Not available Not available 07/24/2024 92793 6 RxNorm Suzanne Ketten null, [place] - [facility] 5 09:01:32 814873 Product containin g penicilli n (product) medicatio n hives Not available Not available 07/24/2024 36159 8001 SNOMED Suzanne Ketten null, [place] - [facility] 5 09:01:50 985055 diphenhyd ramine hydrochlo ride medicatio n Not available Not available Not available 09/24/2024 1362 RxNorm , , Other Not Available [facility] 5 11:54:58 Medications Name Sig Start Date [...] Address Organization Details Last Updated DateTime 07/24/2024 87117.8615 1 g 118 mm[Hg] 60 mm[Hg] Clif Estrada [facility] [place] [facility] 07/24/2024 10:06:13 Social History Question Answer Notes LastModified by Organizat ion Details LastModified Time Tobacco Smoking Status Never Smoker Suzanne Wilkins 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 [email or web address] Information not available 09/24/2024 Mental Status None [...] available 09/24/2024 13:39:14 Medical History Condition Response Psych- Depression Y Cancer- Genetic screening Psych- ADD Y Psych- Anxiety Disorder Y Psych- Bipolar Disease Y GI-Other Y Neurology- Headaches/Migraines Y Pulmonary- Asthma Y Neurology- Seizures/Epilepsy Y Gynecological History Statement/Question [...] Vaccine Type Date Status Note Provider Nam giulia and Address Organization Details Recorded Time HPV9 07/24/2024 completed Suzanne Wilkins [facility] 07/24/2024 08:50:17 influenza, unspecified formulation 05/27/2021 completed Suzanne Wilkins [facility] 07/24/2024 09:36:14 Past Encounters Encounter ID Performer Location Encounter Start Date Encounter Closed Date Diagnosis/Indication Diagnosis SNOMED-CT Code Diagnosis ICD10 Code Diagnosis Note [id number] [address], [place] [id number] 7 [facility] 110_[place] [address] [facility] [address] [place] [address] 07/24/2024 09:56:33 07/24/2024 10:30:45 screening 254071941 Z36.9 Normal pre gnancy in multigravida 3645180523 69493 Z34.82 Health Concerns Section Related Observation LastModified by Organization Detai ls LastModified Time None Recorded Concern Status LastModified by Organization Details LastModified Time None Recorded Advance Directives Directive N: Payers Insurance Date Sequence Insurance Name Policy Number Policy Silva Covered Member ID Silva Member ID Guarantor Name 08/18/2024 1 [facility] (MEDICAID HMO) [id number] 0003 Edelmira Shi [id number] Edelmira Shi OBGyn Episode Ob Episode Information Episode Created Date Number of Fetuses Patient Bloodtype Patient rh Status Prepregnancy Weight lbs Domestic Partner Domestic Partner Phone Father Name Service Crew Leader Status 07/07/19 25 1 A Positive 132 OPEN Fetus Data First Name Last Name Admitted to NICU Weight (g) Sex Living Outcome Pediatric Complications Fetus ID Race Codes Race Delivery Type [id number] Problems Problem Notes nov 20 edc - 7w pole @NOB, 3 w after +HPTpertussis exposure at schoool @25w, Zpak eRx'd Problem Name Start Date End Date Resolution Snomed Code Not e Migraine 85033579 Bipolar disorder 44889240 Nulliparous 800862966 ASA Asthma 105496709 Marijuana user 567283456 tang uana, recom stop Mynor Calculation Initial [...] Type Weight in lbs Pre/Post Dialysis Refused 123.051968915728 BP Diastolic BP Location Tested BP Systolic [...] Estim ated Date of Delivery false Thalassemia (Maldivian, Irish, Mediterranean, Or Background): MCV < 80 false Neural Tube Defect (Meningomyelocele, Spina Bifi da, Or Anencephaly) false Congenital Heart Defect false Down Syndrome false Jose J-Sachs (eg, Hinduism, Cajun, Japanese-Congolese) f alse Erin Disease false Sickle Cell Disease Or Trait () false Hemophilia Or Other Blood Disorders false Muscular Dystrophy false Cystic Fibrosis false Francine's Chorea false Intellectual Disability/Autism false If Yes, [...] Domestic Partner Domestic Partner Phone Father Name Service Crew Leader Status 07/24/19 25 1 DELETED Mynor Calculation [...] Domestic Partner Domestic Partner Phone Father Name Service Crew Leader Status 07/24/19 25 1 DELETED Mynor Calculation [...]
--- OUTSIDE RECORDS SUMMARY | 2024-10-23 00:13 | XMS_ITS | Clinical Summary ---
Author Organization [facility] [employer] Address [address] [place] [address] Care Team Providers Care Search Engine Marketing Strategist Name Role Phone Corrina Brewer CONTROL ELECTRICIAN-ON AIR ANNOUNCER Primary Care Provider [phone] Source Comments [facility] [employer],non-owned Affiliates and Associated Physician Practices is amultiple site organization consisting of ambulatory clinics and hospital sitesin [place], [place], [place] and [place]. This disclosure is being madepursuant to the Care Everywhere program and may not contain all information available regarding this patient. Last updated 18.[facility] [employer] Allergies Active Allergy Reactions Criticality Noted Date [...] Family History Medical History Relation Name Comments ME<55(male) Brother Arrhythmia Neg Hx CVA<55(male) Neg Hx CVA<65(female) Neg Hx Cardiomyopathy Neg Hx Congenital Heart defect Neg Hx Heart Surgery Neg Hx Long QT Syndrome Neg Hx ME<65(female) Neg Hx Marfan Syndrome Neg Hx Pacemaker [...] on file Legal Sex Female 5:45 AM VP SITE Gender Identity Not on file Sexual Orientation Not on file Last Filed Vital Signs Vital Sign Reading Time Taken Comments Blood Pressure 98/42 04/07/2015 8:33 AM VP SITE Pulse 84 04/07/2015 8:33 AM VP SITE Temperature - - Respiratory Rate 16 04/07/2015 8:33 AM VP SITE Oxygen Saturation 97% 04/07/2015 8:33 AM VP SITE Inhaled Oxygen Concentration - - Weight 53.6 kg (118 lb 2.7 oz) 04/07/2015 8:33 A M VP SITE Height 165 cm (5' 4.96) 04/07/2015 8:33 AM VP SITE Body Mass Index 19.69 04/07/2015 8:33 AM VP SITE Plan of Treatment Health Maintenance Due Date [...] age to complete this topic Insurance [facility] Care Teams Search Engine Marketing Strategist Relationship Specialty Start Date End Date Corrina Brewer APRN-ON AIR ANNOUNCER PCP - General 08/23/14
[2024-10-23 00:58] LABS: Basophils Percent Auto 0.3 % (0.2-1.2); Eosinophils Absolute Auto 0.1 K/mm3 (0-0.3); Eosinophils Percent Auto 0.9 % (0-4.4); Hematocrit 31.4 % (37.0-47.0); Hemoglobin 10.6 g/dL (12.0-15.0); Immature Granulocyte Absolute 0.15 K/mm3 (0.00-0.031); Immature Granulocyte Percent A 1.2 % (0-0.5); Lymphocytes Absolute Auto 2.55 K/mm3 (0.9-3.2); Mean Corpuscular HGB Conc 33.8 g/dl (32-36); Mean Corpuscular Hemoglobin 32.2 pg (26-34); Mean Corpuscular Volume 95.4 fl (80-100); Mean Platelet Volume 11.3 fl (7.4-10.4); Monocytes Absolute Auto 1.2 K/mm3 (0.1-0.6); Monocytes Percent Auto 10.2 % (2.6-8.5); Neutrophils Absolute Auto 8.1 K/mm3 (1.3-6.7); Neutrophils Percent Auto 66.4 % (45.5-73.1); Platelet Count Result 143 k/mm3 (150-375); Red Blood Count 3.29 M/mm3 (4.2-5.4); White Blood Count 12.2 K/mm3 (4.5-10.0)
[2024-10-23] MEDS: BETAMETHASONE SOD PHOS/ACETATE 30 MG/5 ML VIAL 12 MG IM (01:11)
--- NOTE | 2024-10-23 01:26 | LDADM ---
This patient, Edelmira Shi, was admitted to Labor/Delivery/Recovery 104 on 10/23/24 at 00:06. Plans for labor, pain management and were discussed with patient. Patient/family oriented to hospital policies and general routines including ID bracelet, bed and alarms, visiting hours, pain management, procedures, bathroom and other care routines, personal items, smoking policy, room service/diet and guest tray routines, security routines, and visiting hours. Patient/Family are encouraged to report perceived risks to care and to ask questions if they do not understand what they are told or what they should do. See OBIX for further documentation.
[2024-10-23] MEDS: miSOPROStol 25 MCG TABLET 50 MCG BUCCAL ×3 (01:28→09:38)
[2024-10-23 01:35] LABS: Syphilis IgG/IgM Antibody Negative (Negative)
[2024-10-23 01:49] LABS: HIV 1/2 Ab P24 Ag Result Negative (Negative)
[2024-10-23] MEDS: fentaNYL CITRATE INJ (*CRX) 100 MCG/2 ML VIAL 50 MCG IV PUSH ×2 (07:45→07:59)
--- NOTE | 2024-10-23 08:00 | WPDOBADMIT ---
Obstetrics - Admit Note Admission Note: record reviewed. No pertinent additions to the history and/or any subsequent changes in the physical findings that are not consistent with the expected course of the were found. Additions to the history and/or subsequent changes in the physical findings follow. IOL at 36 weeks, cholestasis, SVE /-2, Palma catheter placed 40 cc, anticipate vaginal delivery
[2024-10-23] MEDS: LACTATED RINGERS 500 ML 999 ML IV CONT (09:25)
[2024-10-23] MEDS: fentaNYL CITRATE INJ (*CRX) 100 MCG/2 ML VIAL IV PUSH (09:37)
--- NOTE | 2024-10-23 12:19 | PM.OBPNLAB ---
Pain Control Date/time seen: 10/23/24 12:19 Comments: SVE 3-4/80/-2 AROM clear fluid anticipate vaginal delivery
--- NOTE | 2024-10-23 13:30 | WPDANESEPPF ---
Anes - Initial Pre Proc Eval Procedure: labor epidural Date/Time: 10/23/24 13:30 Surgeon: Lisa Slater CNM Pre Op Diagnosis: labor pain Pre Op Diagnosis: IOL Patient Data Age: 24 Gender: F Height: 1.66 m Weight: 73.6 kg Last Vital Signs Temp 36.6 C 10/23/24 12:15 Pulse 86 10/23/24 11:40 Resp 16 10/23/24 12:15 BP 100/56 L 10/23/24 11:40 Pulse Ox 100 10/23/24 13:26 O2 Del Method Room Air 10/23/24 01:30 Allergies Allergy/AdvReac Type Severity Reaction Status Date / Time Penicillins Allergy Severe Hives / Verified 10/23/24 01:58 Red Face prochlorperazine Allergy Severe Anaphylactic Verified 10/23/24 01:58 Shock sulfamethoxazole Allergy Severe Anaphylactic Verified 10/23/24 01:58 Shock trimethoprim Allergy Severe Anaphylactic Verified 10/23/24 01:58 Shock cinnamon AdvReac Intermediate Swelling Verified 10/23/24 01:58 Home Medications ?Medication ?Instructions ?Recorded ?Confirmed ?Type hydroxyzine HCl 10 mg tablet 25 mg PO DAILY 10/21/24 10/23/24 History vit no.95-ferrous 1 tablet PO DAILY 10/21/24 10/23/24 History fumarate 28 mg-folic acid 800 mcg tablet () ursodiol 500 mg tablet 500 mg PO BID 10/21/24 10/23/24 History Laboratory Tests 10/23/24 00:29 WBC 12.2 H K/mm3 (4.5-10.0) RBC 3.29 L M/mm3 (4.2-5.4) Hgb 10.6 L g/dL (12.0-15.0) Hct 31.4 L % (37.0-47.0) MCV 95.4 fl (80-100) MCH 32.2 pg (26-34) MCHC 33.8 g/dl (32-36) RDW 13.0 % (11.5-14.5) Plt Count 143 L k/mm3 (150-375) MPV 11.3 H fl (7.4-10.4) Immature Gran % (Auto) 1.2 H % (0-0.5) Neut % (Auto) 66.4 % (45.5-73.1) Lymph % (Auto) 21.0 % (18.3-44.2) [place] % (Auto) 10.2 H % (2.6-8.5) Eos % (Auto) 0.9 % (0-4.4) Baso % (Auto) 0.3 % (0.2-1.2) Lymph # (Auto) 2.55 K/mm3 (0.9-3.2) [place] # (Auto) 1.2 H K/mm3 (0.1-0.6) Eos # (Auto) 0.1 K/mm3 (0-0.3) Baso # (Auto) 0.0 K/mm3 (0.0-0.1) Abs Immat Gran (auto) 0.15 H K/mm3 (0.00-0.031) Absolute Neuts (auto) 8.1 H K/mm3 (1.3-6.7) Absolute Nucleated RBC 0.000 K/mm3 (0.0-0.012) Nucleated RBC % 0.0 % (0.0-0.2) Syphilis IgG/IgM Ab Negative (Negative) HIV 1&2 Ab/P24 Ag 4thGn Negative (Negative) Blood Type A Positive Antibody Screen Negative Patient hx anesthesia problems: none Family hx anesthesia problems: none Results Review: All pre-operative results and documents have been reviewed as part of the pre-operative evaluation. PENDING SALE TO [facility] Past Medical History Medical History (Updated 03/05/23 @ 14:41 by Monika Ureña APRN) Vapes nicotine containing substance Hematemesis Dysphagia Abnormal weight loss Chronic diarrhea Vomiting Family History Family History (Updated 10/21/24 @ 14:15 by Larisa Manzo RN) Sibling Acute myocardial infarction Mother Thyroid disease Other Anxiety Cancer Depression Social History Social History (Updated 03/05/23 @ 14:16 by Sharona Busch MA) Smoking status: Former smoker Tobacco type: e-cigarettes/vaping Alcohol intake: current Alcohol use details: Socially Substance use: never Substance use type: marijuana Other substance usage details: smokes Last use: 03/06/2023 Do You Feel Safe in your Home?: Yes Lack of Transportation: No Lack of Food: Never True Current Housing: I Have Housing Concerned About Future Housing: No Difficulty Paying Gas/Electric Bills: No Difficulty Paying for Meds: No Currently Unemployed: No Education: Associate Degree Difficulty w/ Childcare or Family Care: No Living arrangements: with family Occupation/Education: occupation Gender identity (if verbalized by the patient): Female Spiritual care concerns: No Anes - Eval Final PreProcedure Day of Procedure 10/23/24 13:30 Patient weight: overweight ASA classification: III Anesthetic plan: proceed Anesthesia type and monitoring: regional epidural and standard monitoring Results Review: All pre-operative results and documents have been reviewed as part of the pre-operative evaluation. Informed Consent: The patient's anesthetic plan and its attendant risks and benefits were discussed with the patient/family/POA. Questions were solicited and answers provided to the satisfaction of the patient/family/POA.
[2024-10-23] MEDS: LACTATED RINGERS 1,000 ML 125 ML IV CONT (14:46)
[2024-10-23] MEDS: OXYTOCIN 30 UNITS/NS 500 ML 30 UNITS/500 ML BAG IV CONT (15:10)
--- NOTE | 2024-10-23 16:57 | S_PTH ---
PATIENT: Edelmira Shi LOC: ANHOB2 U#:[id number] AGE/SX: 24/F ROOM: 286 RE10/23/[address]: Jose Jaramillo MD : 2000 BED: 00 DIS: 10/25/2024 SPEC #: [id number] RECD: 10/26/24 10:01 STATUS: TONIATrisha REStephen #: [id number] ATMARA: 10/23/24 16:[address]: Lisa Slater DEPT: [facility] Surgical RECD BY: Jerri Goetz ENTERED: 10/26/24 10:02 SP TYPE: Surgical OTHR DR: MD Aniya Manzanares, SWABBER Tissues: A - Placenta Procedures: Hematoxylin and Eosin Stain Gross and Microscopic Level 5
[2024-10-23] MEDS: OXYTOCIN 30 UNITS/NS 500 ML 30 UNITS/500 ML BAG 999 UNITS IV CONT (17:00)
--- NOTE | 2024-10-23 17:07 | PM.OBPRVD ---
OB - Vaginal Delivery Note Procedure Delivery date: 10/23/24 Events: Other (cholestasis) Induction method: AROM, Per Misoprostol Protocol and Per Pitocin Protocol Delivery monitor: External FHT and External Uterine Route of delivery: Episiotomy description: None Laceration Description: None Specimen: Yes Quantitative Blood Loss (ml): 100 Anesthesia type: Epidural Disposition: Floor Complications: No immediate complications Baby Date of : 10/23/24 Time of : 16:57 Gestational Age by Date: 36 gender: Male presentation: vertex position: Right Occiput Anterior Placenta delivery description: Spontaneous Cord Vessel Description: 3 Vessels and Nuchal Cord (x1) score one minute: 8 score five minutes: 9 Narrative: compound presentation with left hand
[2024-10-23] MEDS: OXYTOCIN 30 UNITS/NS 500 ML 30 UNITS/500 ML BAG 125 UNITS IV CONT (17:32)
[2024-10-23] MEDS: BENZOCAINE 20% AER SPR (*SP) 56 GM CAN 1 SPRAY TOPICAL (21:27)
[2024-10-23] MEDS: WITCH HAZEL 40 PADS 1 PAD TOPICAL (21:27)
--- NOTE | 2024-10-23 21:55 | OBPPTRN ---
Patient transferred to post room #286 via wheelchair. Support person present. Oriented to unit, room, information board, rooming in, admission packet and security measures. Patient verbalizes understanding.
[2024-10-24 03:15] VITALS: BP 102/62; PULSE 73; RESP 16; TEMP 36.4; O2SAT 98
[2024-10-24 05:45] LABS: Hematocrit 30.7 % (37.0-47.0); Hemoglobin 10.2 g/dL (12.0-15.0)
[2024-10-24 08:17] VITALS: BP 104/72; PULSE 84; RESP 18; TEMP 36.4; O2SAT 99
--- NOTE | 2024-10-24 08:32 | P.PNOB_ITS ---
OB - PN: Subj Subjective Date/time seen: 10/24/24 08:32 Patient comments: no complaints, pain well controlled, incisional pain, tolerating diet and flatus present OB - PN: Obj Data Labs 10/24/24 05:15 Labs: Laboratory Results - last 24 hr 10/24/24 05:15 Hgb 10.2 L Hct 30.7 L OB - PN A/P Plan day: 1 Plan: routine care Comments: No problems, routine care Time Spent With Patient Time: Total time spent is greater than 50% in coordination of care (as documented) at patient's floor/unit and/or counseling patient: Exam 2 Const: General: comfortable, no acute distress and alert Resp: Effort & Inspection: normal respiratory effort Auscultation: no crackles, no rales and no rhonchi Cardio: Rate: regular rate Heart sounds: no click, no murmurs and no rubs GI: Inspection: non-distended GI Palp: No Tenderness to palpation present (GI) Auscultation: normal bowel sounds Other: Incision - CDI Extrem: General: normal to inspection, no pedal edema and no calf tenderness
[2024-10-24] MEDS: hydrOXYzine HCL 25 MG TABLET PO (08:56)
[2024-10-24] MEDS: DOCUSATE SODIUM 100 MG CAPSULE PO (08:56)
[2024-10-24] MEDS: MULTIVIT/MIN/PREN/FOL AC/IRON TABLET 1 TAB PO (08:56)
--- NOTE | 2024-10-24 09:20 | PC.NURSE ---
RN requested feeding assistance for patient. She had baby undressed and on her chest. She says that baby has not been interested in latching to the breast. Mom already had a bottle and was trying to get baby to eat. Baby was gaggy and spit up some mucous. Mom says he has been doing that. Assisted mom with positioning for bottle feeding and burping. Mom is hesitant with handling baby but responds well to education. She states that dad has been able to get him to take the bottle better than her. Baby tends to chew on the nipple initially and then begin sucking. He lets formula dribble out of his mouth often. Reviewed with mom that he may not have very strong muscles yet and will get better at maintaining a latch on the bottle nipple with practice. Mom has not pumped because she says that she doesn't have milk yet. Educated her on pumping now to lay the groundwork for a robust supply in the future. She is going to have someone get her pump today. Patient is encouraged to call out if baby is not able to take at least 15ml of formula.
--- NOTE | 2024-10-24 10:16 | PHAR ---
HOME MED URSODIOL 500 MG TABLET Color:?White to Off-White Shape:?Oval Imprint:??U 11 Imprint Code Description:?The tablet is debossed with U 11 on one side and breakline on the other side. Form:?Oral Tablet VERIFIED BY PHARMACY.
[2024-10-24] MEDS: URSODIOL 500 MG 500 EACH PO (10:32)
[2024-10-24] MEDS: IBUPROFEN 600 MG TABLET PO ×2 (11:18→19:50)
[2024-10-24 11:56] VITALS: BP 107/61; PULSE 83; RESP 18; TEMP 36.3; O2SAT 97
[2024-10-24 19:19] VITALS: BP 105/60; PULSE 83; RESP 16; TEMP 36.4; O2SAT 97
[2024-10-25] MEDS: IBUPROFEN 600 MG TABLET PO (07:29)
[2024-10-25] MEDS: DOCUSATE SODIUM 100 MG CAPSULE PO (07:30)
[2024-10-25] MEDS: MULTIVIT/MIN/PREN/FOL AC/IRON TABLET 1 TAB PO (07:30)
[2024-10-25 08:02] VITALS: BP 116/76; PULSE 72; RESP 14; TEMP 36.6; O2SAT 98
--- NOTE | 2024-10-25 09:50 | P.PNOB_ITS ---
OB - PN: Subj Subjective Date/time seen: 10/25/24 09:50 Patient comments: no complaints, pain well controlled and tolerating diet OB - PN: Obj Data Labs 10/24/24 05:15 OB - PN A/P Plan day: 2 Plan: routine care and discharge home Time Spent With Patient Time: Total time spent is greater than 50% in coordination of care (as documented) at patient's floor/unit and/or counseling patient: Exam 2 Const: General: comfortable and no acute distress Resp: Effort & Inspection: normal respiratory effort Auscultation: no rales, no rhonchi and no wheezes Cardio: Rate: regular rate Heart sounds: no click, no murmurs and no rubs GI: GI Palp: Yes Soft to palpation and No Tenderness to palpation present (GI) Auscultation: normal bowel sounds Extrem: General: normal to inspection, no pedal edema and no calf tenderness
--- NOTE | 2024-10-25 09:50 | PM.OBDSVD ---
DS: Admitting Diagnosis Discharge Date 10/25/24 Admitting Diagnosis term DS: Discharge Diagnosis Discharge Diagnosis (1) Term delivered: Code(s): O80 - Encounter for full-term uncomplicated delivery Status: Acute OB - DS: Summary OB Procedures : None OB Procedures Intrapartum: Spontaneous Vag Delivery OB Procedures: : None Peripartum Data Laceration Description: None Episiotomy description: None Time Spent with Patient Time attestation: Total time spent providing and/or coordinating discharge services: Discharge Plan Discharge Consulting providers: Jose Jaramillo Discharging Clinician: Jose Jaramillo Patient Disposition: Home Activity: pelvic rest Diet: regular Patient Instructions: Antibiotic Form Patient Language: St Helenian Stand Alone Forms: General Discharge Information Follow-up/Referrals: Jose Jaramillo MD [Physician] - Discharge Medications: Continued PNV cmb#95-ferrous fumarate-FA [] 28 mg iron- 800 mcg tablet 1 tablet PO DAILY ursodiol 500 mg tablet 500 mg PO BID hydroxyzine HCl 10 mg tablet 25 mg PO DAILY Date of admission: 10/23/24 00:06 Primary Care Provider: LawsonAniya Admitting Provider: Jose Jaramillo Attending physician on admission: Lisa Slater Condition: Stable
[2024-10-25] MEDS: URSODIOL 500 MG 500 EACH PO (10:06)
== END 2024-10-25 14:43 | disposition home or self-care (01) | DRG 560 ==
LOC: ANHLDR 00:23 → ANHOB2 10-25 09:52 → ANHLDR 10-27 08:24 → ANHOB2 10-27 08:24
PROVIDERS: Advanced Practice Midwife; Admitting Provider Obstetrics & Gynecology; PCP Registered Nurse; Visit Provider Obstetrics & Gynecology
DX: O26.643 Intrahepatic cholestasis of pregnancy, third trimester (principal); O99.334 Smoking (tobacco) complicating childbirth; F17.290 Nicotine dependence, other tobacco product, uncomplicated; O69.81X0 Labor and delivery complicated by cord around neck, without compression, not applicable or unspecified; O32.6XX0 Maternal care for compound presentation, not applicable or unspecified; Z3A.36 36 weeks gestation of pregnancy; Z37.0 Single live birth
CPT/HCPCS: 36415; 85014; 85018; 85025; 86593; 86703; 86850; 86900; 86901; 88307; A9270; G0432; J0702; J2590; J2795; J3010; J7120

== ENCOUNTER 2024-10-31 10:56 | Emergency (ER) | payer OTHER, SELFPAY ==
--- NOTE | ~2024-10-31 | US_ITS ---
EXAMINATION: US pelvic complete w TV DATE: 10/31/2024 12:21 INDICATION: Assess for retained products of conception 8 days post vaginal delivery. TECHNIQUE: Multiple transabdominal and endovaginal sonographic images of the pelvis were obtained. COMPARISON: None. FINDINGS: The uterus measures 13.3 x 2.4 x 6.8 cm. The endometrial complex measures 13 mm in thickness. The en dometrial complex has a somewhat heterogeneous appearance with poorly defined posterior margin and as sociated posterior acoustic shadowing at the posterior aspect of the endometrial canal. There is also some increased vascular flow on color Doppler suggesting small amount of retained products of concep tion. Minimal amount of anechoic fluid in the endocervical canal. The right ovary measures 2.4 x 1.4 x 1.5 cm. With internal vascular flow on color Doppler. The left o vary is not visualized. There is trace amount of free fluid along the posterior margin of the uterus. IMPRESSION: 1. Likely some retained products of conception along the posterior margin of the endometrial complex. Reviewed, dictated and finalized at location A. IMPRESSION: 1. Likely some retained products of conception along the posterior margin of th e endometrial complex.
--- OUTSIDE RECORDS SUMMARY | 2024-10-31 10:59 | XMS_ITS | Clinical Summary ---
Author Organization [facility] [employer] Address [address] [place] [address] Care Team Providers Care Aircraft Engineer Name Role Phone Corrina Brewer BINGO CALLER-BLANKET WINDER HELPER Primary Care Provider [phone]- [phone] Source Comments [facility] [employer],non-owned Affiliates and Associated Physician Practices is amultiple site organization consisting of ambulatory clinics and hospital sitesin [place], [place], [place] and [place]. This disclosure is being madepursuant to the Care Everywhere program and may not contain all information available regarding this patient. Last updated 18.[facility] [employer] Allergies Active Allergy Reactions Criticality Noted Date [...] Family History Medical History Relation Name Comments MN<55(male) Brother Arrhythmia Neg Hx CVA<55(male) Neg Hx CVA<65(female) Neg Hx Cardiomyopathy Neg Hx Congenital Heart defect Neg Hx Heart Surgery Neg Hx Long QT Syndrome Neg Hx MN<65(female) Neg Hx Marfan Syndrome Neg Hx Pacemaker [...] on file Legal Sex Female 5:45 AM WIND TURBINE DESIGN ENGINEER Gender Identity Not on file Sexual Orientation Not on file Last Filed Vital Signs Vital Sign Reading Time Taken Comments Blood Pressure 98/42 04/07/2015 8:33 AM WIND TURBINE DESIGN ENGINEER Pulse 84 04/07/2015 8:33 AM WIND TURBINE DESIGN ENGINEER Temperature - - Respiratory Rate 16 04/07/2015 8:33 AM WIND TURBINE DESIGN ENGINEER Oxygen Saturation 97% 04/07/2015 8:33 AM WIND TURBINE DESIGN ENGINEER Inhaled Oxygen Concentration - - Weight 53.6 kg (118 lb 2.7 oz) 04/07/2015 8:33 A M WIND TURBINE DESIGN ENGINEER Height 165 cm (5' 4.96) 04/07/2015 8:33 AM WIND TURBINE DESIGN ENGINEER Body Mass Index 19.69 04/07/2015 8:33 AM WIND TURBINE DESIGN ENGINEER Plan of Treatment Health Maintenance Due [...] age to complete this topic Insurance [facility] Care Teams Aircraft Engineer Relationship Specialty Start Date End Date Corrina Brewer APRN-BLANKET WINDER HELPER PCP - General 08/23/14
--- OUTSIDE RECORDS SUMMARY | 2024-10-31 10:59 | XMS_ITS | Data Portability ---
Author Organization [facility], [id number] [facility] Address [address] [place] [id number] Assessment No assessment recorded. Plan of Treatment Reminders Order Date Submit Date Provider Last Modified By Organization Details Last Modified Time Details Appointments None recorded. Lab CBC w/ diff - between 08/21-[address] Lab, [address] [place] [address], [address], 5 11:21:09 HIV 1+2 AB + HIV 1 p24 Ag, qualitative immunoassay , serum [address] [place] [address] Lab, [address] [place] [address], [address], 5 11:21:10 [email or web address] Ab, igg [address] [place] [address] (Lab), [address] [place] [address], [address], 5 11:21:10 antibody screen, serum or plasma [address] Lab, [address] [place] [address], [address], 5 11:21:10 glucose tolerance test, post-50G, 1-hour [address] [place] [address] Lab, [address] [place], [place] [address], [place], [address], 11:21:10 Referral None recorded. Procedures None recorded. Surgeries None recorded. Imaging US, obstetric, follow-up 2024 025 [email or web address] [facility] [place], [address], 10:39:42 US, obstetric - growth and DEQUAN 2024 025 DIANNA [facility] [place], [address], 13:18:00 Medication Orders None recorded. Patient TargetsNo targets recorded. Patient InstructionsNo instructions recorded. Reason for Referral None Reported. Results Created Date Observation Date Name Description Value Unit Range Abnormal Flag Note LastModifiedBy Organization Detail LastModifiedTime 08/01/1907/28/2024 non-s tress test No observ ation record ed. [email or web address] Not Available 2024 10:36:35 08/09/19 25 08/07/2024 US, obste tric No observ ation record ed. [email or web address] [facility] [place], [address], 08/11/2024 17:47:59 08/23/19 25 08/14/2024 non-s tress test No observ ation record ed. [email or web address] [facility] [address] [place], [address], 08/30/2024 08:16:06 Result Notes None recorded. Problems Name Problem SNOMED Code Status Onset Date Resolution Date Notes Provider Name and Address Organization Details Recorded Time 25999895 Active 2024 Suzanne thurman [facility] 16:56:39 Attention deficit hyperacti vity disorder 241548673 Active 2024 Suzanne Emilicharles null, [facility] 5 09:01:58 Asthma 874168606 Active RAMESH MAURO CNM [address], [place], [address] , [facility] 5 10:14:11 Bipolar disorder 61848877 Active RAMESH BORJAS [address], [place], [address] , [facility] 5 10:14:21 Migraine 29451031 Active RAMESH BORJAS [address], [place], [address] , [facility] 5 10:14:27 Seizure disorder 667987846 Active 2024 chronic complex migraine w/onset petit mal seizure per pt dec 2020, Dr Thomas neurologis t at [facility] prescribed rizatripta n in 02/2019 for migraine and PCP Lor Mccallum and Aniya Agarwal refill for hew now. Stopped her amitryptil ine for stress in Apr 2019 as no sz for 2 yr and none since. Suzanne Wilkins null, [facility] 5 09:04:58 Nulliparo us 005205251 Active ASA RAMESH BORJAS [address], [place], [address] , [facility] 5 10:14:03 Asthma 167270026 Active RAMESH BORJAS [address], [place], [address] , [facility] 5 10:14:11 Bipolar disorder 90320342 Active RAMESH BORJAS [address], [place], [address] , [facility] 5 10:14:21 Migraine 64207424 Active RAMESH JHADIANA CN [address], [facility], [address] , [facility] 5 10:14:27 Marijuana user 124465750 Active marijuana, recom stop RAMESH JHADIANA CN [address], [facility] [place], [address] , [facility] for [facility] 5 10:14:49 Exposure to Bordetell a pertussis Active 2024 DESTINEY DALAL MD [address], [place], [address] , [facility] 5 19:29:01 Depressed bipolar I disorder 57828819 Active Bipolar disorder with depression , Problem Code: 296.50; Problem Code Type: ICD-9; Not Available [facility] 5 12:21:29 Epilepsy 86150753 Active Seizure Disorder, chronic complex migraine w [...] ICD-9; Startdate: 'resolved apr 2019'; Not Available [facility] 5 12:21:29 Problem Notes None recorded. Procedures Surgical History Date Name Laterality Status Provider Name and Address Organization Details Recorded Time 06/08/19 Date of Last Pap Smear completed Suzanne Wilkins [facility] for [facility] 07/24/2024 09:00:00 05/27/19 23 Colonoscopy completed Suzanne Wilkins [facility] r for [facility] 07/24/2024 08:58:53 05/27/19 23 endoscopy completed Suzanne Wilkins [facility] for [facility] 07/24/2024 08:59:05 endoscopy completed Not Available [facility] 0 09/24/2024 14:02:28 colonoscopy completed Not Available [facility] 09/24/2024 14:02:29 Imaging Results None recorded. Procedure Notes None recorded. Medical Equipment None Reported. Allergies Allergen ID Allergen Name Allergen Category Reaction Reaction Severity Criticality Documentation Date Start Date Code Code System Note Provider Name and Address Organization Details Recorded Time 766061 amoxicill in medicatio n hives Not available Not available 07/24/2024 723 RxNorm Suzanne Ketten null, [place] - [facility] 5 09:00:59 033653 Bactrim medicatio n Not available Not available Not available 07/24/2024 28942 9 RxNorm Suzanne Ketten null, [place] - [facility] 5 09:01:06 721943 cinnamon preparati on food,medi cation hives Not available Not available 07/24/2024 38138 5 RxNorm Suzanne Ketten null, [place] - [facility] 5 09:01:19 321847 Compazine medicatio n anaphylax is Not available Not available 07/24/2024 38996 6 RxNorm Suzanne Ketten null, [place] [facility] 5 09:01:32 297935 Product containin g penicilli n (product) medicatio n hives Not available Not available 07/24/2024 24367 8001 SNOMED Suzanne Ketten null, [place] - [facility] 5 09:01:50 115315 diphenhyd ramine hydrochlo ride medicatio n Not available Not available Not available 09/24/2024 1362 RxNorm , , Other Not Available [facility] 5 11:54:58 Medications Name Sig Start Date [...] Address Organization Details Last Updated DateTime 07/24/2024 60967.8615 1 g 118 mm[Hg] 60 mm[Hg] Clif Estrada [facility] 07/24/2024 10:06:13 Social History Question Answer Notes LastModified by Organizat ion Details LastModified Time Tobacco Smoking Status Never Smoker Suzanne Wilkins [facility] 07/24/2024 08:58:00 Do You Have An Advance [...] Recorded Time HPV9 07/24/2024 completed Suzanne Wilkins [facility] 07/24/2024 08:50:17 influenza, unspecified formulation 05/27/2021 completed Suzanne Wilkins [facility] 07/24/2024 09:36:14 Past Encounters Encounter ID Performer Location Encounter Start Date Encounter Closed Date Diagnosis/Indication Diagnosis SNOMED-CT Code Diagnosis ICD10 Code Diagnosis Note [id number] [address], [place] [id number] [facility] [address] [facility] [address] [place] [address] 07/24/2024 09:56:33 07/24/2024 10:30:45 screening 054585262 Z36.9 Normal pre gnancy in multigravida 3728826743 06056 Z34.82 Health Concerns Section Related Observation LastModified by Organization Detai ls LastModified Time None Recorded Concern Status LastModified by Organization Details LastModified Time None Recorded Advance Directives Directive N: Payers Insurance Date Sequence Insurance Name Policy Number Policy Silva Covered Member ID Silva Member ID Guarantor Name 08/18/2024 1 [facility] (MEDICAID HMO) [id number] Edelmira Shi [id number] Edelmira Shi OBGyn Episode Ob Episode Information Episode Created Date Number of Fetuses Patient Bloodtype Patient rh Status Prepregnancy Weight lbs Domestic Partner Domestic Partner Phone Father Name Retail Sales Merchandiser Development Status 07/07/19 25 1 A Positive 132 OPEN Fetus Data First Name Last Name Admitted to NICU Weight (g) Sex Living Outcome Pediatric Complications Fetus ID Race Codes Race Delivery Type 150496 Problems Problem Notes nov 20 edc - 7w pole @NOB, 3 w after +HPTpertussis exposure at schoool @25w, Zpak eRx'd Problem Name Start Date End Date Resolution Snomed Code Not e Migraine 13095944 Bipolar disorder 68059957 Nulliparous 728602244 ASA Asthma 089938947 Marijuana user 157790806 tang uana, recom stop Mynor Calculation Initial [...] Type Weight in lbs Pre/Post Dialysis Refused 123.333561799319 BP Diastolic BP Location Tested BP Systolic [...] Estim ated Date of Delivery false Thalassemia (Salvadorean, Bahraini, Mediterranean, Or Background): MCV < 80 false Neural Tube Defect (Meningomyelocele, Spina Bifi da, Or Anencephaly) false Congenital Heart Defect false Down Syndrome false Jose J-Sachs (eg, Tenriism, Cajun, Grenadian-Nicaraguan) f alse Erin Disease false Sickle Cell [...] Domestic Partner Domestic Partner Phone Father Name Retail Sales Merchandiser Development Status 07/24/19 25 1 DELETED Mynor Calculation [...] Domestic Partner Domestic Partner Phone Father Name Retail Sales Merchandiser Development Status 07/24/19 25 1 DELETED Mynor Calculation [...]
--- OUTSIDE RECORDS SUMMARY | 2024-10-31 10:59 | XMS_ITS | Data Portability ---
Author Organization [facility] Address [address] [place] [address] [place] [address] Care Team Providers Care Icd 9 Coder Name Role Phone RAHEL VIDAL Primary Care Provider [phone] Assessment Encounter Date Assessment Date Assessment LastModified by Organization Details LastModified Time 10/21/2024 10/21/2024 Patient is 35___weeks . Discussed plan. Not available 10/21/2024 15:03:45 Plan of Treatment Reminders Order Date Submit Date Provider Last Modified By Organization Details Last Modified Time Details Appointments POST 2024 09:45A M Lisa Slater CNM Not available Not available Not available Lab bile acids, total, serum 2024 025 [facility] (Lab), [address] [place], [address], 10/22/2024 11:11:07 CMP, serum or plasma 2024 025 [facility] (Lab), [address] [place], [address], 10/22/2024 11:11:07 Referral None recorded. Procedures None recorded. Surgeries None recorded. Imaging non-stres s test 2024 025 [email or web address] [place], [address], [address], [place], [address], 10/22/2024 09:45:18 US, obstetric , biophysic al profile + non-stres s test 2024 025 [email or web address] [address], [address], [place], [address], 10/21/2024 18:49:12 US, obstetric , follow-up 2024 025 DIANNA [address], [address], [place], [address], 10/21/2024 21:14:39 Medication Orders None recorded. Patient TargetsNo targets recorded. Patient InstructionsNo instructions recorded. Reason for Referral None Reported. Results Created Date Observation Date Name Description Value Unit Range Abnormal Flag Note LastModifiedBy Organization Detail LastModifiedTime 09/26/1909/25/2024 BILE ACIDS , TOTAL bile acids, total 7 umol/ L 0-10 Test Perfo rmed by: [facility] [address] [facility] (Lab) [address] [place], [address], 09/26/2024 12:00:15 10/01/19 25 09/30/2024 CMP(C OMPRE HENSI VE METAB OLIC PANEL ) sodium 135 mmol/ L 133-[address] [facility] (Lab) [address] [place], [address], 10/01/2024 12:33:16 10/01/19 25 09/30/2024 CMP(C OMPRE HENSI VE METAB OLIC PANEL ) potassium 3.9 mmol/ L 3.5-5. [address] [facility] (Lab) [address] [place], [address], 10/01/2024 12:33:16 10/01/19 25 09/30/2024 CMP(C OMPRE HENSI VE METAB OLIC PANEL ) chloride 103 mmol/ L 98-[address] [facility] (Lab) [address] [place], [address], 10/01/2024 12:33:16 10/01/19 25 09/30/2024 CMP(C OMPRE HENSI VE METAB OLIC PANEL ) carbon dioxide 27 mmol/ L 21-[address] [facility] (Lab) [address] [facility], [place], [address], 10/01/2024 12:33:16 10/01/19 25 09/30/2024 CMP(C OMPRE HENSI VE METAB OLIC PANEL ) anion gap 5 mmol/ L 4-[address] [facility] (Lab) [address], [place], [address], 10/01/2024 12:33:16 10/01/19 25 09/30/2024 CMP(C OMPRE HENSI VE METAB OLIC PANEL ) blood urea nitrogen 8 mg/dL 7-25 Not Available [facility] (Lab) [address] [facility], [place], [address], 10/01/2024 12:33:16 10/01/19 25 09/30/2024 CMP(C OMPRE HENSI VE METAB OLIC PANEL ) creatinine 0.51 mg/dL 0.60-1 .[address] [facility] (Lab) [address] [facility], [place], [address], 10/01/2024 12:33:16 10/01/19 25 09/30/2024 CMP(C OMPRE HENSI VE METAB OLIC PANEL ) egfrcr (CKD-epi 2020) >90 mL/mi n/1.7 3_m2 >=[address] [facility] (Lab) [address] [facility], [place], [address], 10/01/2024 12:33:16 10/01/19 25 09/30/2024 CMP(C OMPRE HENSI VE METAB OLIC PANEL ) calcium 8.8 mg/dL 8.3-[address] [facility] (Lab) [address] [facility], [place], [address], 10/01/2024 12:33:16 10/01/19 25 09/30/2024 CMP(C OMPRE HENSI VE METAB OLIC PANEL ) glucose 91 mg/dL 70-[address] [facility] (Lab) [address] [facility], [place], [address], 10/01/2024 12:33:16 10/01/19 25 09/30/2024 CMP(C OMPRE HENSI VE METAB OLIC PANEL ) protein, total 6.0 g/dL 6.4-8. [address] [facility] (Lab) [address] [facility], [place], [address], 10/01/2024 12:33:16 10/01/19 25 09/30/2024 CMP(C OMPRE HENSI VE METAB OLIC PANEL ) albumin 3.6 g/dL 3.5-5. [address] [facility] (Lab) [address] [facility], [place], [address], 10/01/2024 12:33:16 10/01/19 25 09/30/2024 CMP(C OMPRE HENSI VE METAB OLIC PANEL ) ALT 11 units /L 9-[address] [facility] (Lab) [address] [facility], [place], [address], 10/01/2024 12:33:16 10/01/19 25 09/30/2024 CMP(C OMPRE HENSI VE METAB OLIC PANEL ) alkaline phosphatase 126 units /L 34-[address] [facility] (Lab) [address] [facility], [place], [address], 10/01/2024 12:33:16 10/01/19 25 09/30/2024 CMP(C OMPRE HENSI VE METAB OLIC PANEL ) AST 15 units /L 13-[address] [facility] (Lab) [address] [place], [address], 10/01/2024 12:33:16 10/01/19 25 09/30/2024 CMP(C OMPRE HENSI VE METAB OLIC PANEL ) bilirubin, total 0.3 mg/dL 0.2-1. [address] [facility] (Lab) [address] [facility], [place], [address], 10/01/2024 12:33:16 10/01/19 25 09/30/2024 BILE ACIDS , TOTAL bile acids, total 13 umol/ L 0-10 high Test Perfo rmed by: Jono russo [address] [facility] (Lab) [address] [facility], [place], [address], 10/01/2024 12:33:17 10/15/19 25 10/14/2024 CMP(C OMPRE HENSI VE METAB OLIC PANEL ) sodium 135 mmol/ L 133-[address] [facility] (Lab) [address] [facility], [place], [address], 10/15/2024 17:18:03 10/15/19 25 10/14/2024 CMP(C OMPRE HENSI VE METAB OLIC PANEL ) potassium 4.0 mmol/ L 3.5-5. [address] [facility] (Lab) [address] [facility], [place], [address], 10/15/2024 17:18:03 10/15/19 25 10/14/2024 CMP(C OMPRE HENSI VE METAB OLIC PANEL ) chloride 105 mmol/ L 98-[address] [facility] (Lab) [address] [facility], [place], [address], 10/15/2024 17:18:03 10/15/19 25 10/14/2024 CMP(C OMPRE HENSI VE METAB OLIC PANEL ) carbon dioxide 24 mmol/ L 21-[address] [facility] (Lab) [address] [facility], [place], [address], 10/15/2024 17:18:03 10/15/19 25 10/14/2024 CMP(C OMPRE HENSI VE METAB OLIC PANEL ) anion gap 6 mmol/ L 4-[address] [facility] (Lab) [address] [facility], [place], [address], 10/15/2024 17:18:03 10/15/19 25 10/14/2024 CMP(C OMPRE HENSI VE METAB OLIC PANEL ) blood urea nitrogen 5 mg/dL 7-25 low Not Available [facility] (Lab) [address] [facility], [place], [address], 10/15/2024 17:18:03 10/15/19 25 10/14/2024 CMP(C OMPRE HENSI VE METAB OLIC PANEL ) creatinine 0.44 mg/dL 0.60-1 .[address] [facility] (Lab) [address] [facility], [place], [address], 10/15/2024 17:18:03 10/15/19 25 10/14/2024 CMP(C OMPRE HENSI VE METAB OLIC PANEL ) egfrcr (CKD-epi 2020) >90 mL/mi n/1.7 3_m2 >=[address] [facility] (Lab) [address] [facility], [place], [address], 10/15/2024 17:18:03 10/15/19 25 10/14/2024 CMP(C OMPRE HENSI VE METAB OLIC PANEL ) calcium 8.7 mg/dL 8.3-[address] [facility] (Lab) [address] [facility], [place], [address], 10/15/2024 17:18:03 10/15/19 25 10/14/2024 CMP(C OMPRE HENSI VE METAB OLIC PANEL ) glucose 63 mg/dL 70-[address] [facility] (Lab) [address] [facility], [place], [address], 10/15/2024 17:18:03 10/15/19 25 10/14/2024 CMP(C OMPRE HENSI VE METAB OLIC PANEL ) protein, total 6.1 g/dL 6.4-8. [address] [facility] (Lab) [address] [place], [address], 10/15/2024 17:18:03 10/15/19 25 10/14/2024 CMP(C OMPRE HENSI VE METAB OLIC PANEL ) albumin 3.5 g/dL 3.5-5. [address] [facility] (Lab) [address] [place], [address], 10/15/2024 17:18:03 10/15/19 25 10/14/2024 CMP(C OMPRE HENSI VE METAB OLIC PANEL ) ALT 10 units /L 9-[address] [facility] (Lab) [address] [facility], [place], [address], 10/15/2024 17:18:03 10/15/19 25 10/14/2024 CMP(C OMPRE HENSI VE METAB OLIC PANEL ) alkaline phosphatase 180 units /L 34-[address] [facility] (Lab) [address] [facility], [place], [address], 10/15/2024 17:18:03 10/15/19 25 10/14/2024 CMP(C OMPRE HENSI VE METAB OLIC PANEL ) AST 15 units /L 13-[address] [facility] (Lab) [address] [facility], [place], [address], 10/15/2024 17:18:03 10/15/19 25 10/14/2024 CMP(C OMPRE HENSI VE METAB OLIC PANEL ) bilirubin, total 0.3 mg/dL 0.2-1. [address] [facility] (Lab) [address] [place], [address], 10/15/2024 17:18:03 10/15/19 25 10/14/2024 BILE ACIDS , TOTAL bile acids, total 18 umol/ L 0-10 high Test Perfo rmed by: [facility] [address] [place] [address] [facility] (Lab) [address] [facility], [place], [address], 10/15/2024 17:18:04 10/15/19 25 10/14/2024 CULTU RE: [...] Final resul t Abnor mal: No Resul ting Lab: [facility] [address] [facility] [address] Tel: CULTU RE ----- ----- ----- --- No Group B strep isola pan at 2 days (xiao ctive broth enhan cemen t) Not Available [facility] (Lab) [address] [facility], [place], [address], 10/17/2024 15:14:29 10/22/19 25 10/21/2024 CMP(C OMPRE HENSI VE METAB OLIC PANEL ) sodium 139 mmol/ L 133-[address] [facility] (Lab) [address] [place], [address], 10/22/2024 11:11:07 10/22/19 25 10/21/2024 CMP(C OMPRE HENSI VE METAB OLIC PANEL ) potassium 3.9 mmol/ L 3.5-5. [address] [facility] (Lab) [address] [place], [address], 10/22/2024 11:11:07 10/22/19 25 10/21/2024 CMP(C OMPRE HENSI VE METAB OLIC PANEL ) chloride 105 mmol/ L 98-[address] [facility] (Lab) [address] [facility], [place], [address], 10/22/2024 11:11:07 10/22/19 25 10/21/2024 CMP(C OMPRE HENSI VE METAB OLIC PANEL ) carbon dioxide 28 mmol/ L 21-[address] [facility] (Lab) [address] [facility], [place], [address], 10/22/2024 11:11:07 10/22/19 25 10/21/2024 CMP(C OMPRE HENSI VE METAB OLIC PANEL ) anion gap 6 mmol/ L 4-[address] [facility] (Lab) [address] [facility], [place], [address], 10/22/2024 11:11:07 10/22/19 25 10/21/2024 CMP(C OMPRE HENSI VE METAB OLIC PANEL ) blood urea nitrogen 8 mg/dL 7-25 Not Available [facility] (Lab) [address] [facility], [place], [address], 10/22/2024 11:11:07 10/22/19 25 10/21/2024 CMP(C OMPRE HENSI VE METAB OLIC PANEL ) creatinine 0.59 mg/dL 0.60-1 .[address] [facility] (Lab) [address] [facility], [place], [address], 10/22/2024 11:11:07 10/22/19 25 10/21/2024 CMP(C OMPRE HENSI VE METAB OLIC PANEL ) egfrcr (CKD-epi 2020) >90 mL/mi n/1.7 3_m2 >=[address] [facility] (Lab) [address] [facility], [place], [address], 10/22/2024 11:11:07 10/22/19 25 10/21/2024 CMP(C OMPRE HENSI VE METAB OLIC PANEL ) calcium 8.6 mg/dL 8.3-[address] [facility] (Lab) [address] [facility], [place], [address], 10/22/2024 11:11:07 10/22/19 25 10/21/2024 CMP(C OMPRE HENSI VE METAB OLIC PANEL ) glucose 64 mg/dL 70-[address] [facility] (Lab) [address] [place], [address], 10/22/2024 11:11:07 10/22/19 25 10/21/2024 CMP(C OMPRE HENSI VE METAB OLIC PANEL ) protein, total 5.8 g/dL 6.4-8. [address] [facility] (Lab) [address] [facility], [place], [address], 10/22/2024 11:11:07 10/22/19 25 10/21/2024 CMP(C OMPRE HENSI VE METAB OLIC PANEL ) albumin 3.4 g/dL 3.5-5. [address] [facility] (Lab) [address] [facility], [place], [address], 10/22/2024 11:11:07 10/22/19 25 10/21/2024 CMP(C OMPRE HENSI VE METAB OLIC PANEL ) ALT 11 units /L 9-[address] [facility] (Lab) [address] [place], [address], 10/22/2024 11:11:07 10/22/19 25 10/21/2024 CMP(C OMPRE HENSI VE METAB OLIC PANEL ) alkaline phosphatase 198 units /L 34-[address] [facility] (Lab) [address] [place], [address], 10/22/2024 11:11:07 10/22/19 25 10/21/2024 CMP(C OMPRE HENSI VE METAB OLIC PANEL ) AST 16 units /L 13-[address] [facility] (Lab) [address] [place], [address], 10/22/2024 11:11:07 10/22/19 25 10/21/2024 CMP(C OMPRE HENSI VE METAB OLIC PANEL ) bilirubin, total 0.3 mg/dL 0.2-1. [address] [facility] (Lab) [address] [facility], [place], [address], 10/22/2024 11:11:07 10/22/19 25 10/21/2024 BILE ACIDS , TOTAL bile acids, total 15 umol/ L 0-10 high Test Perfo rmed by: [facility] [facility] (Lab) [address] [facility], [place], [address], 10/22/2024 11:11:07 09/26/19 25 09/25/2024 US, obste tric, follo w-up No observ ation record ed. [email or web address] [place] [address], [place], [address], 09/25/2024 17:25:47 09/26/19 25 09/25/2024 US, obste tric, follo w-up No observ ation record ed. [email or web address] [address] [facility], [place], [address], 09/29/2024 06:36:16 09/27/1909/25/2024 non-s tress test No observ ation record ed. [email or web address] [place] [address], [place], [address], 09/26/2024 08:53:04 10/01/1909/30/2024 US, pinky hernandez, bioph ysica l profi le + non-s tress test No observ ation record ed. [email or web address] [place] [address], [place], [address], 09/30/2024 17:26:21 10/01/19 25 09/30/2024 US, obste tric, follo w-up No observ ation record ed. [email or web address] [address], [place], [address], 10/02/2024 07:04:39 10/01/19 25 09/30/2024 non-s tress test No observ ation record ed. [place] [address], [place], [address], 09/30/2024 20:21:07 10/01/19 25 09/30/2024 non-s tress test No observ ation record ed. [email or web address] [place] [address], [place], [address], 09/30/2024 22:01:38 10/08/19 25 10/07/2024 US, obste tric, bioph ysica l profi le + non-s tress test No observ ation record ed. [email or web address] [place] [address], [place], [address], 10/07/2024 18:17:09 10/08/19 25 10/07/2024 US, obste tric, bioph ysica l profi le + non-s tress test No observ ation record ed. [email or web address] [address], [place], [address], 10/07/2024 15:18:34 10/08/19 25 10/07/2024 non-s tress test No observ ation record ed. [email or web address] [place] [address], [place], [address], 10/07/2024 20:27:17 10/08/19 25 10/07/2024 non-s tress test No observ ation record ed. [email or web address] [place] [address], [place], [address], 10/07/2024 20:29:44 10/08/19 25 09/25/2024 non-s tress test No observ ation record ed. [email or web address] Not Available 10/07 20:46:45 10/15/19 25 10/15/2024 US, obste tric, bioph ysica l profi le + non-s tress test No observ ation record ed. [email or web address] [place] [address], [place], [address], 10/15/2024 11:29:30 10/15/19 25 10/14/2024 US, obste tric, follo w-up No observ ation record ed. [email or web address] [address], [place], [address], 10/20/2024 22:40:55 10/15/19 25 10/14/2024 non-s tress test No observ ation record ed. [email or web address] [place] [address], [place], [address], 10/14/2024 15:43:20 10/22/19 25 10/21/2024 US, obste tric, bioph ysica l profi le + non-s tress test No observ ation record ed. [email or web address] [place] [address], [place], [address], 10/21/2024 17:28:40 10/22/19 25 10/21/2024 US, obste tric, follo w-up No observ ation record ed. [email or web address] [place] [address], [place], [address], 10/21/2024 17:29:03 10/22/19 25 10/21/2024 US, obste tric, follo w-up No observ ation record ed. [email or web address] [address], [place], [address], 10/22/2024 10:32:14 10/22/1910/21/2024 non-s tress test No observ ation record ed. [email or web address] [place] [address], [place], [address], 10/21/2024 20:59:29 10/22/19 25 10/21/2024 non-s tress test No observ ation record ed. [email or web address] [place] [address], [place], [address], 10/21/2024 21:01:12 Result Notes None recorded. Problems Name Problem SNOMED Code Status Onset Date Resolution Date Notes Provider Name and Address Organization Details Recorded Time History of seizure Active none in last 5 years/str ess related Lisa Slater CNM [address], [place], [address], [facility] 5 15:16:44 Migraine 95209896 Active stress related [address], [place], [address], [facility] 5 15:16:30 Mixed anxiety and depressiv e disorder 661154452 Active has f/u with psychiatr ist Lisa Slater CNM [address], [place], [address], [facility] 5 15:16:25 91434996 Active 2024 Luli thurman, [facility] 5 15:03:31 History of seizure Active none in last 5 years/str ess related Lisa Slater CNM [address], [place], [address], [facility] 5 15:16:44 Migraine 09819187 Active stress related Lisa Slater CNM [address], [place], [address], [facility] 5 15:16:30 Mixed anxiety and depressiv e disorder 722684460 Active has f/u with psychiatr ist Lisa Slater CNM [address], [place], [address], [facility] 5 15:16:25 Bipolar disorder 63325855 Active no current medicatio n, vraylar prior to Lisa Slater CNM [address], [place], [address], [facility] 5 15:16:00 Pruritic disorder of skin Active 2024 bile acids/cmp ordered 09/11 ursodiol 300mg BID bile acids 7 Rpt labs started nst 32 wks increase to 500mg bid rpt next visit Lisa Slater CNM [address], [place], [address], [facility] 5 16:23:13 Cholestas is 79507030 Active 2024 Ursodiol increased to 500mg BID Rebecca thurman, [facility] 5 16:41:33 Cholestas is 23699520 Active 2024 Ursodiol increased to 500mg BID Rebecca Green [facility] 16:41:33 Problem Notes None recorded. Procedures Surgical History Date Name Laterality Status Provider Name and Address Organization Details Recorded Time 09/26/19 25 [address] [facility] 09/25/2024 15:17:22 09/26/19 25 [address] [facility] 09/25/2024 15:17:47 03/18/20 [address] [facility] 08/28/2024 15:02:38 03/15/[address] [facility] 08/28/2024 15:02:37 03/15/20 23 Date of Last Colonoscopy completed Luli Rivas [facility] 08/28/2024 15:02:37 06/15/19 22 Date of Last Pap Smear completed Lulichristy Rivas [facility] 08/28/2024 15:02:37 Imaging Results None recorded. Procedure Notes None recorded. Medical Equipment None Reported. Allergies Allergen ID Allergen Name Allergen Category Reaction Reaction Severity Criticality Documentation Date Start Date Code Code System Note Provider Name and Address Organization Details Recorded Time 41601 cinnamon preparati on food,medi cation hives mild Not available 08/28/2024 47749 5 [facility] 15:02:37 93907 Compazine medicatio n anaphylax is severe Not available 08/28/2024 29587 6 RxNorm Luli Rivas [facility] 5 15:02:37 40333 Bactrim medicatio n anaphylax is severe Not available 08/28/2024 75348 9 RxNorm Luli thurman, [facility] 5 15:02:37 37162 wool environme nt hives mild Not available 08/28/2024 35321 UNK Luli Rivas [facility] 5 15:02:37 49074 Penicilli n Not available hives moderate Not available 08/28/2024 43279 RxNorm Luli Rivas [facility] 5 15:02:37 Medications Name Sig Start [...] Last Updated DateTime 165.74 cm 26.8 kg/m2 52448.9 6 g 165.74 cm 26.8 kg/m2 74991.9 6 g 112 mm[Hg] 72 mm[Hg] 112 mm[Hg] 72 mm[Hg] Luli Rivas [facility] 20:58:11 Social History Question Answer Notes LastModified by Organizat ion Details LastModified Time Tobacco Smoking Status Never Smoker Luli Rivas [facility] 10/07/2024 15:53:49 Do You Have An Advance Directive? No Information n ot available 08/28/2024 If You Are , What Was Your Level Of Alcohol Consumption Prior To ? Occasional [email or web address] Information not available 10/07/2024 How Many Years Have You Consumed Alcohol? 7 [email or web address] Information not available 08/28/2024 Are You Blind Or Do You Have Difficulty Seeing? No [email or web address] Information n ot available 08/28/2024 What Is Your Level Of Caffeine Consumption? Occasional [email or web address] Information not available 08/28/2024 How Much Tobacco Do You Chew? None [email or web address] Information not available 08/28/2024 In The 14 Days Before Symptom Onset, Have You Had Close Contact With A Laboratory-confirm ed COVID-19 While That Case Was Ill? No [email or web address] Information n ot available 08/28/2024 In The 14 Days Before Symptom Onset, Have You Had Close Contact With A Person Who Is Under Investigation For COVID-19 While That Person Was Ill? No [email or web address] Information not available 08/28/2024 Have You Been To An Area Known To Be High Risk For COVID-19? No [email or web address] Information not available 08/28/2024 Are You Deaf Or Do You Have Serious Difficulty Hearing? No [email or web address] Information not available 08/28/2024 What Type Of Diet Are You Following? REGULAR [email or web address] Information n ot available 08/28/2024 What Is The Highest Grade Or Level Of School You Have Completed Or The Highest Degree You Have Received? FC01356-3 [email or web address] Information not available 08/28/2024 Are There Any Guns Present In Your Home? Yes [email or web address] Information not available 08/28/2024 Do You Use Protection During Sex? No [email or web address] Information not available 08/28/2024 Do You Use Your Seat Belt Or Car Seat Routinely? Yes [email or web address] Information not available 08/28/2024 Do You Have Smoke And Carbon Monoxide Detectors In Your Home? Yes [email or web address] Information not available 08/28/2024 How Much Tobacco Do You Smoke? No [email or web address] Information not available 08/28/2024 Do You Use Sunscreen Routinely? Yes [email or web address] Information not available 08/28/2024 Have You Used IV Drugs? No [email or web address] Information not available 08/28/2024 Do You Have Difficulty Walking Or Climbing Stairs? No Information not available 09/30/2024 Sex: Unknown Functional Status Question Answer Note LastModified by Organizat ion Details LastModified Time Do you use any illicit or recreational drugs? No [email or web address] Information not available 08/28/2024 What is your level of alcohol consumption? None [email or web address] Information not available 10/07/2024 Are you able to walk? YESWOREST [email or web address] Information not available 08/28/2024 Are you able to care for yourself? Yes [email or web address] Information not available 09/30/2024 What is your occupation? [employer] [email or web address] Information not available 09/25/2024 Do you have difficulty dressing or bathing? No [email or web address] Information not available 09/30/2024 What is your exercise level? Moderate [email or web address] Information not available 08/28/2024 Mental Status Question Answer Note LastModified by Organization D etails LastModified Time Do you feel stressed (tense, restless, nervous, or anxious, or unable to sleep at night)? [id number] [email or web address] Information not available 08/28/2024 Family History Relationship Description Onset Age of this Age Resolved Age Notes LastModified by Organization Details LastModified Time Brother Anxiety disorder [email or web address] Not available 08/28 15:02:37 Brother Depressive disorder [email or web address] Not available 08/28 15:02:37 Brother Substance abuse [email or web address] Not available 08/28 15:02:37 Brother Mental disorder [email or web address] Not available 08/28 15:02:37 Father Anxiety disorder Not available 08/28 15:02:37 Father Depressive disorder Not available 08/28 15:02:37 Father Substance abuse [email or web address] Not available 08/28 15:02:37 Mother Disorder of thyroid gland [email or web address] Not available 08/28 15:02:37 Mother Anxiety disorder [email or web address] Not available 08/28 15:02:37 Mother Depressive disorder [email or web address] Not available 08/28 15:02:37 Mother High risk [email or web address] Not available 08/28 15:02:37 Maternal Aunt High risk [email or web address] Not available 08/28 15:02:37 Maternal Grandmother Depressive disorder [email or web address] Not available 08/28 15:02:37 Maternal Grandmother High risk [email or web address] Not available 08/28 15:02:37 Sister Anxiety disorder [email or web address] Not available 08/28 15:02:37 Sister Depressive disorder [email or web address] Not available 08/28 15:02:37 Sister Mental disorder [email or web address] Not available 08/28 15:02:37 Paternal Grandfather Malignant tumor of colon [email or web address] Not available 08/28 15:02:37 Medical History Condition [...] SNOMED-CT Code Diagnosis ICD10 Code Diagnosis Note [id number] Jose Rosales MD [facility] [address] [address] 08/28/2024 13:16:23 08/28/2024 14:11:05 Suspected abnormality affecting management of mother [id number] O35.8XX0 O26.849 Z3A.28 [id number] [facility] [address],[place] [address] 08/28/2024 13:17:07 08/28/2024 15:22:40 Routine care 094208868 Z34.93 Venereal d isease screening 840737359 Z11.3 Gestation period, 28 weeks 64757054 Z3A.28 [id number] Jose Rosales MD [facility] [address],[place] [address] 09/10/2024 14:54:34 09/10/2024 15:31:12 Third trimester 80427614 Z34.03 [id number] Jose Rosales MD [facility] [address],[place] [address] 09/11/2024 12:25:13 09/11/2024 12:59:49 Urinary tract infectious disease 38883576 N39.0 [id number] MD Debo Jacinto [address],[place] [address] 09/25/2024 14:21:01 09/25/2024 15:10:36 Observational assessment 884118090 Z03.74 O35.8XX0 Z3A.32 [id number] [facility] [address],[place] [address] 09/25/2024 14:21:17 09/28/2024 11:02:01 Gestation period, 32 weeks 1528441 Z3A.32 continue vitamin [id number] [facility] [address],[place] [address] 09/25/2024 15:35:42 09/28/2024 11:08:31 Cholecystitis 00891460 K81.9 [id number] Jose Rosales MD [facility] [address],[place] [address] 09/30/2024 14:40:20 09/30/2024 15:56:51 Cholestasis of 362874109 O26.643 Z3A.32 [id number] [facility] [address],[place] [address] 09/30/2024 14:40:40 10/01/2024 11:01:52 Cholestasis of 668751342 O26.643 [id number] Lisa Slater [facility] [address],[place] [address] 09/30/2024 14:41:04 09/30/2024 17:49:41 Gestation period, 32 weeks 8816020 Z3A.32 continue vitamin Cholestasi s of 581129404 O26.643 [id number] Jose Rosales MD [facility] [address],[place] [address] 10/07/2024 13:59:18 10/07/2024 16:02:57 Cholestasis of 429662832 O26.643 Z3A.33 [id number] Lisa Slater [facility] [address],[place] [address] 10/07/2024 13:59:32 10/08/2024 12:05:24 Cholestasis of 458815265 O26.643 [id number] Lisa Slater [facility] [address],[place] [address] 10/07/2024 13:59:47 10/07/2024 16:52:20 Cholestasis of 999174800 O26.643 Gestation period, 33 weeks 94451952 Z3A.33 [id number] Jose Rosales MD [facility] [address],[place] [address] 10/14/2024 14:20:15 10/14/2024 15:04:32 Cholestasis of 213437331 O26.643 Z3A.34 [id number] Lisa Slater [facility] [address],[place] [address] 10/14/2024 14:20:39 10/14/2024 15:49:00 Cholestasis of 947963920 O26.643 [id number] [facility] [address],[place] [address] 10/14/2024 14:20:55 10/14/2024 15:57:46 Gestation period, 34 weeks 32436801 Z3A.34 screening 2437 32170 Z36.85 [id number] Jose Rosales MD [facility] [address],[place] [address] 10/21/2024 13:32:01 10/21/2024 14:12:42 Cholestasis of 420895094 O26.643 Z3A.35 [id number] [facility] [address],[place] [address] 10/21/2024 13:32:44 10/22/2024 09:45:18 Cholestasis of 644018767 O26.643 [id number] [facility] [address],[place] [address] 10/21/2024 13:33:42 10/21/2024 15:07:42 Itching 967123159 L29.9 Gestation period, 35 weeks 33475821 Z3A.35 [id number] [facility] [address],[place] [address] 10/22/2024 09:50:59 10/22/2024 16:31:59 [id number] [facility] [address],[place] [address] 10/23/2024 09:20:02 10/23/2024 09:27:53 Health Concerns Section Related Observation LastModified by Organization Detai ls LastModified Time None Recorded Concern Status LastModified by Organization Details LastModified Time None Recorded Advance Directives Directive N: Payers Encounter Date Sequence Insurance Name Policy Number Policy Silva Covered Member ID Silva Member ID Guarantor Name 10/21/2024 1 [facility] (MEDICAID HMO) [id number] Edelmira Rench [id number] Edelmira Rench 10/21/2024 1 [facility] (MEDICAID HMO) [id number] Edelmira Rench [id number] Edelmira Rench 10/21/2024 1 [facility] (MEDICAID HMO) [id number] Edelmira Rench [id number] Edelmira Rench 10/22/2024 1 [facility] (MEDICAID HMO) [id number] Edelmira Rench [id number] Edelmira Rench 10/23/2024 1 [facility] (MEDICAID HMO) [id number] 0003 Edelmira Rench [id number] Edelmira Rench OBGyn Episode Ob Episode Information Episode Created Date Number of Fetuses Patient Bloodtype Patient rh Status Prepregnancy Weight lbs Domestic Partner Domestic Partner Phone Father Name Access Control Specialist Status 08/29/19 25 1 A Positive Young Rasheed OPEN Fetus Data First Name Last Name Admitted to NICU Weight (g) Sex Living Outcome Pediatric Complications Fetus ID Race Codes Race Delivery Type [id number] Problems Problem Notes mild right pylectasisvenous lakes rpt 4 weeksIOL scheduled 10/27/24 1700 Problem Name Start Date End Date Resolution Snomed Code Not e History of seizure 0806096983 none in last 5 years/stress related Bipolar disorder 01611436 no current medication, vraylar prior to Pruritic disorder of skin 09/11/2024 0781356964 bile acids/cmp ordered 09/11 ursodiol 300mg BID bile acids 7 Rpt labsstarted nst 32 wksincrease to 500mg bid rpt next visit Cholestasis 10/07/2024 [id number] Ursodio l increased to 500mg BID Migraine 61079218 stress rel ated Mixed anxiety and depressive disorder 764220000 has f/u with psychiatrist Mynor Calculation Initial [...] Weight in lbs Pre/Post Dialysis Refused Weight 151.841254643514 BP Diastolic BP Location Tested BP Systolic BP Type 66 99 Fetus Heart Rate Present Fetus Movement A Yes Comments pt is transfer of care from [facility], reviewed medical history, no current meds other than , disc risk for pp depression, has plan with pcp and psychiatrist , resume routine careUS venous nguyen mild pylectasis Flowsheet Date 09/10/2024 Christianson Score Blood Edema Fundus Height Fundus Units Glucose Ketones Leukocytes Nitrite Labor Signs Protein Cervic Dilation Cervic Effacement Cervic Station Type Weight in lbs Pre/Post Dialysis Refused Weight 154.94811776129 BP Diastolic BP Location Tested BP Systolic [...] Type Weight in lbs Pre/Post Dialysis Refused 154.115688150961 BP Diastolic BP Location Tested BP Systolic [...] Type Weight in lbs Pre/Post Dialysis Refused 158.227709282210 BP Diastolic BP Location Tested BP Systolic [...] Weight in lbs Pre/Post Dialysis Refused Weight 158.721530608101 BP Diastolic BP Location Tested BP Systolic [...] Weight in lbs Pre/Post Dialysis Refused Weight 159.927081715295 BP Diastolic BP Location Tested BP Systolic BP Type 68 R arm 105 sitting Fetus Heart Rate Present Fetus Movement Comments Flowsheet Date 09/30/2024 Christianson Score Blood Edema Fundus Height Fundus Units Glucose Ketones Leukocytes Nitrite Labor Signs Protein Cervic Dilation Cervic Effacement Cervic Station neg none Type Weight in lbs Pre/Post Dialysis Refused 159.580244974484 BP Diastolic BP Location Tested BP Systolic [...] Weight in lbs Pre/Post Dialysis Refused Weight 162.122287671471 BP Diastolic BP Location Tested BP Systolic BP Type 73 111 Fetus Heart Rate Present Fetus Movement Comments Flowsheet Date 10/07/2024 Christianson Score Blood Edema Fundus Height Fundus Units Glucose Ketones Leukocytes Nitrite Labor Signs Protein Cervic Dilation Cervic Effacement Cervic Station neg trace Type Weight in lbs Pre/Post Dialysis Refused 162.065524805123 BP Diastolic BP Location Tested BP Systolic [...] Weight in lbs Pre/Post Dialysis Refused Weight 161.143874573018 BP Diastolic BP Location Tested BP Systolic BP Type 74 L arm 111 sitting Fetus Heart Rate Present Fetus Movement A Yes Comments Flowsheet Date 10/14/2024 Christianson Score Blood Edema Fundus Height Fundus Units Glucose Ketones Leukocytes Nitrite Labor Signs Protein Cervic Dilation Cervic Effacement Cervic Station neg trace Type Weight in lbs Pre/Post Dialysis Refused 161.628385684990 BP Diastolic BP Location Tested BP Systolic [...] Weight in lbs Pre/Post Dialysis Refused Weight 162.516414741286 BP Diastolic BP Location Tested BP Systolic BP Type 72 112 Fetus Heart Rate Present Fetus Movement Comments Flowsheet Date 10/21/2024 Christianson Score Blood Edema Fundus Height Fundus Units Glucose Ketones Leukocytes Nitrite Labor Signs Protein Cervic Dilation Cervic Effacement Cervic Station Type Weight in lbs Pre/Post Dialysis Refused Weight 162.165318670469 BP Diastolic BP Location Tested BP Systolic BP Type 72 112 Fetus Heart Rate Present Fetus Movement Comments pruritus worsening even afte r increase discussed with dr rosales and will plan IOL for tomorrow evening, +FM check labs, bpp 03/05 f/u iol Flowsheet Date 10/22/2024 Christianson Score Blood Edema Fundus Height Fundus Units Glucose Ketones Leukocytes Nitrite Labor Signs Protein Cervic Dilation Cervic Effacement Cervic Station Type Weight in lbs Pre/Post Dialysis Refused BP Diastolic BP Location Tested BP Systolic BP Type Fetus Heart Rate Present Fetus Movement Comments Flowsheet Date 10/23/2024 Christianson Score Blood Edema Fundus Height Fundus [...]
[2024-10-31 11:03] VITALS: BP 132/81; PULSE 100; RESP 18; O2SAT 98
--- NOTE | 2024-10-31 11:07 | ED_ITS ---
HPI - General Adult General Chief complaint: Abdominal Pain Stated complaint: abdominal pain-vaginal delivery 8 days ago Time Seen by Provider: 10/31/24 10:58 History of Present Illness HPI narrative: 24-year-old female presents to the emergency department for evaluation for intermittent lower abdominal pain. Patient did have a vaginal delivery approximately 8 days ago. Patient states the pain had been improving. Patient reports over the last few days she has had multiple episodes of intense lower abdominal pain. Patient states she is still having some vaginal bleeding but states she is only using 1 pad per 24 hours. Patient states she was having some abdominal cramping during but is also having intermittent abdominal cramping at times of rest. Time of evaluation patient is well- appearing in no distress. Patient had a vaginal delivery with no complications and no vaginal tears, no episiotomy. Related Data Home Medications ?Medication ?Instructions ?Recorded ?Confirmed ?Last Taken ?Type hydroxyzine HCl 10 mg tablet 25 mg PO DAILY 10/21/24 10/23/24 10/21/24 19:00 History 25 mg vit no.95-ferrous 1 tablet PO DAILY 10/21/24 10/23/24 10/22/24 08:00 History fumarate 28 mg-folic acid 800 mcg 1 tablet tablet () ursodiol 500 mg tablet 500 mg PO BID 10/21/24 10/23/24 10/22/24 19:45 History Allergies Allergy/AdvReac Type Severity Reaction Status Date / Time Penicillins Allergy Severe Hives / Verified 10/23/24 01:58 Red Face prochlorperazine Allergy Severe Anaphylactic Verified 10/23/24 01:58 Shock sulfamethoxazole Allergy Severe Anaphylactic Verified 10/23/24 01:58 Shock trimethoprim Allergy Severe Anaphylactic Verified 10/23/24 01:58 Shock cinnamon AdvReac Intermediate Swelling Verified 10/23/24 01:58 Review of Systems 2 Review of Systems: All systems reviewed & are unremarkable except as noted in HPI and below PMFSH Past Medical History Medical History (Updated 10/31/24 @ 12:47 by Toby Longoria MD) Vapes nicotine containing substance Hematemesis Dysphagia Abnormal weight loss Chronic diarrhea Vomiting Family History Family History (Updated 10/21/24 @ 14:15 by Larisa Manzo RN) Sibling Acute myocardial infarction Mother Thyroid disease Other Anxiety Cancer Depression Social History Social History (Updated 03/05/23 @ 14:16 by ZULAY Scott Smoking status: Former smoker Tobacco type: e-cigarettes/vaping Alcohol intake: current Alcohol use details: Socially Substance use: never Substance use type: marijuana Other substance usage details: smokes Last use: 03/06/2023 Do You Feel Safe in your Home?: Yes Lack of Transportation: No Lack of Food: Never True Current Housing: I Have Housing Concerned About Future Housing: No Difficulty Paying Gas/Electric Bills: No Difficulty Paying for Meds: No Currently Unemployed: No Education: Associate Degree Difficulty w/ Childcare or Family Care: No Living arrangements: with family Occupation/Education: occupation Gender identity (if verbalized by the patient): Female Spiritual care concerns: No Exam 2 Narrative: APPEARANCE: Well appearing, no pain, no distress, well-nourished. HEAD: normocephalic, atraumatic. EYES: PERRLA/EOMI, conjunctivae clear. NOSE: Normal no drainage EARS:TMS clear with good light reflex. THROAT: Pharynx clear, no exudate. NECK: Supple. No adenopathy, no masses. RESPIRATORY: Airway patent, respirations nonlabored. Clear to auscultation bilaterally, no rales, rhonchi, wheezing. CARDIOVASCULAR: Regular rate and rhythm without murmurs rubs or gallops. ABDOMINAL: Soft, nontender, nondistended, normal bowel sounds MUSCULOSKELETAL: Moves all extremities. Strength/ROM intact, No edema, No calf tenderness. NEURO: Alert. Cranial nerves II through XII intact. Good gait. Good coordination SKIN: Warm, dry. Normal Color Course Vital Signs Vital signs: Vital Signs Pulse Rate 100 10/31/24 11:03 Respiratory Rate 18 10/31/24 11:03 Blood Pressure 132/81 10/31/24 11:03 Pulse Oximetry 98 10/31/24 11:03 Oxygen Delivery Room Air 10/31/24 11:03 Pulse Rate 100 10/31/24 11:03 Respiratory Rate 18 10/31/24 11:03 Blood Pressure 132/81 10/31/24 11:03 Pulse Oximetry 98 10/31/24 11:03 Oxygen Delivery Room Air 10/31/24 11:03 Medical Decision Making MDM Narrative Medical decision making narrative: 24-year-old female presents emergency department for evaluation for lower abdominal cramping. Patient was no distress upon arrival to the emergency department. Patient is afebrile with no leukocytosis hemoglobin of 12.6. Patient has an INR of 0.9. No significant abnormalities on the patient's CMP. Patient's UA was positive for leukocyte esterase, red blood cells high white blood cells and high bacteria. Urine culture was ordered and patient was started on Macrobid emergency department discharged home on Macrobid. Patient's bedside ultrasound did show concern for retained products of conception. I did discuss this with Dr. Jaramillo and he he will see the patient as outpatient on Saturday. Patient and family were updated on the results of the workup they are comfortable plan for discharge and close follow-up. Differential Diagnosis Differential Diagnosis: Retained products of conception, class, diverticulitis, appendicitis, UTI Vital Signs Vital Signs: Vital Signs Pulse Rate 100 10/31/24 11:03 Respiratory Rate 18 10/31/24 11:03 Blood Pressure 132/81 10/31/24 11:03 Pulse Oximetry 98 10/31/24 11:03 Oxygen Delivery Room Air 10/31/24 11:03 Pulse Rate 100 10/31/24 11:03 Respiratory Rate 18 10/31/24 11:03 Blood Pressure 132/81 10/31/24 11:03 Pulse Oximetry 98 10/31/24 11:03 Oxygen Delivery Room Air 10/31/24 11:03 Lab Data Lab results reviewed: Yes I reviewed the patient's lab results. 10/31/24 11:13 10/31/24 11:13 Labs: Lab Results 10/31/24 Range/Units 11:13 WBC 8.6 (4.5-10.0) K/mm3 RBC 3.91 L (4.2-5.4) M/mm3 Hgb 12.6 (12.0-15.0) g/dL Hct 37.7 (37.0-47.0) % MCV 96.4 (80-100) fl MCH 32.2 (26-34) pg MCHC 33.4 (32-36) g/dl RDW 12.3 (11.5-14.5) % Plt Count 240 D (150-375) k/mm3 MPV 9.9 (7.4-10.4) fl Immature Gran % (Auto) 1.1 H (0-0.5) % Neut % (Auto) 68.0 (45.5-73.1) % Lymph % (Auto) 20.9 (18.3-44.2) % [place] % (Auto) 7.4 (2.6-8.5) % Eos % (Auto) 2.2 (0-4.4) % Baso % (Auto) 0.4 (0.2-1.2) % Lymph # (Auto) 1.79 (0.9-3.2) K/mm3 [place] # (Auto) 0.6 (0.1-0.6) K/mm3 Eos # (Auto) 0.2 (0-0.3) K/mm3 Baso # (Auto) 0.0 (0.0-0.1) K/mm3 Abs Immat Gran (auto) 0.09 H (0.00-0.031) K/mm3 Absolute Neuts (auto) 5.8 (1.3-6.7) K/mm3 Absolute Nucleated RBC 0.000 (0.0-0.012) K/mm3 Nucleated RBC % 0.0 (0.0-0.2) % PT 12.7 (11.1-14.7) Seconds INR 0.9 APTT 26.1 (22.3-36.8) Seconds Sodium 138 (137-145) mmol/L Potassium 3.8 (3.4-5.0) mmol/L Chloride 108 H (98-107) mmol/L Carbon Dioxide 21 L (22-30) mmol/L Anion Gap 9 (4-12) mmol/L BUN 13 (7-17) mg/dL Creatinine 0.63 L (0.7-1.0) mg/dL Estim Creat Clear Calc Not Reportable Estimated GFR > 60 (59 - ) Glucose 102 (65-110) mg/dL Calcium 9.6 (8.4-10.2) mg/dL Total Bilirubin 0.3 (0.2-1.3) mg/dL AST 28 (14-36) U/L ALT 20 (6-35) U/L Alkaline Phosphatase 133 H (38-126) U/L Total Protein 7.0 (6.3-8.2) g/dL Albumin 3.8 (3.5-5.1) g/dL Lipase 58 (23-300) U/L Urine Color Yellow (Yellow) Urine Appearance Cloudy H (Clear) Urine pH 6.5 (5.0-9.0) Ur Specific [place] 1.020 (1.001-1.035) Urine Protein 1+ H (Negative) mg/dL Urine Glucose (UA) Negative (Negative) mg/dL Urine Ketones Negative (Negative) mg/dL Ur Blood (Man) 3+ H (Negative) Urine Nitrate Negative (Negative) Urine Bilirubin Negative (Negative) Urine Urobilinogen 0.2 (<2.0) mg/dL Add Ur Microanalysis Reviewed Leukocyte Esterase Rfl 3+ H (Negative) LILIBETH/UL Urine RBC 6-10 H (0-2) /hpf Urine WBC >100 H (0-3) /hpf Ur Squamous Epith Cells Moderate (Few) /hpf Ur Renal Epithelial Cell Rare H (None Seen) /hpf Urine Bacteria 3+ H /hpf Urine Casts 0-2 Blood Type A Positive Antibody Screen Negative Imaging Data Radiologist's impression: Impressions Pelvic/Transvag US 10/31/24 12:35 IMPRESSION: 1. Likely some retained products of conception along the posterior margin of the endometrial complex. Discharge Plan Discharge Clinical Impression: Abdominal pain, UTI (urinary tract infection), Retained products of conception Patient Disposition: Home Condition: Stable Instructions: Antibiotic Form, Urinary Tract Infection in Women (DC), Abdominal Pain (ED) Additional Instructions: Drink plenty fluids. Tylenol for pain control. Antibiotic as directed until completed. Have close follow-up with OB Gyne. If you have any worsening symptoms including fever, worsening bleeding or uncontrolled pain then please call or return to emergency department Patient Language: Polish Prescriptions: New nitrofurantoin monohyd/m-cryst [Macrobid] 100 mg capsule 100 mg PO Q12H 7 Days Qty: 14 0RF Rx Instructions: must administer with a meal/food No Action PNV cmb#95-ferrous fumarate-FA [] 28 mg iron- 800 mcg tablet 1 tablet PO DAILY ursodiol 500 mg tablet 500 mg PO BID hydroxyzine HCl 10 mg tablet 25 mg PO DAILY Follow-up/Referrals: Camron,BOOGIE Kwan [Primary Care Provider] -
[2024-10-31 11:19] LABS: Basophils Percent Auto 0.4 % (0.2-1.2); Eosinophils Absolute Auto 0.2 K/mm3 (0-0.3); Eosinophils Percent Auto 2.2 % (0-4.4); Hematocrit 37.7 % (37.0-47.0); Hemoglobin 12.6 g/dL (12.0-15.0); Immature Granulocyte Absolute 0.09 K/mm3 (0.00-0.031); Immature Granulocyte Percent A 1.1 % (0-0.5); Lymphocytes Absolute Auto 1.79 K/mm3 (0.9-3.2); Lymphocytes Percent Auto 20.9 % (18.3-44.2); Mean Corpuscular HGB Conc 33.4 g/dl (32-36); Mean Corpuscular Hemoglobin 32.2 pg (26-34); Mean Corpuscular Volume 96.4 fl (80-100); Mean Platelet Volume 9.9 fl (7.4-10.4); Monocytes Absolute Auto 0.6 K/mm3 (0.1-0.6); Monocytes Percent Auto 7.4 % (2.6-8.5); Neutrophils Absolute Auto 5.8 K/mm3 (1.3-6.7); Platelet Count Result 240 k/mm3 (150-375); Red Blood Count 3.91 M/mm3 (4.2-5.4); Red Cell Distribution Width 12.3 % (11.5-14.5); White Blood Count 8.6 K/mm3 (4.5-10.0)
[2024-10-31] MEDS: LACTATED RINGERS 1,000 ML 999 ML IV CONT (11:20)
[2024-10-31 11:30] LABS: INR 0.9; Prothrombin Time 12.7 Seconds (11.1-14.7)
[2024-10-31 11:31] LABS: Partial Thromboplastin Time 26.1 Seconds (22.3-36.8)
[2024-10-31 11:36] LABS: Alanine Aminotransferase 20 U/L (6-35); Albumin Level 3.8 g/dL (3.5-5.1); Alkaline Phosphatase 133 U/L (38-126); Anion Gap 9 mmol/L (4-12); Aspartate Amino Transferase 28 U/L (14-36); Bilirubin,Total 0.3 mg/dL (0.2-1.3); Blood Urea Nitrogen 13 mg/dL (7-17); Calcium 9.6 mg/dL (8.4-10.2); Carbon Dioxide 21 mmol/L (22-30); Chloride 108 mmol/L (98-107); Estimated Glomerular Filt Rate > 60; Glucose 102 mg/dL (65-110); Lipase 58 U/L (23-300); Potassium 3.8 mmol/L (3.4-5.0); Sodium 138 mmol/L (137-145)
[2024-10-31 11:42] LABS: Add Urine Microscopic? YES; Appearance Urine Cloudy (Clear); Bacteria Urine 3+ /hpf; Bilirubin Urine Negative (Negative); Blood Urine 3+ (Negative); Color Urine Yellow (Yellow); Glucose Urine UA Negative (Negative); Ketones Urine Negative (Negative); Leukocyte Esterase Ur 3+ LEU/UL (Negative); Need Manual Microscopic Reviewed; Nitrate Urine Negative (Negative); Non Pathogenic Casts 0-2; Protein Urine 1+ mg/dL (Negative); Renal Epithelial Cells Urine Rare /hpf (None Seen); Squamous Epithelial Cell Urine Moderate /hpf (Few); Urobilinogen Urine 0.2 mg/dL (<2.0); WBC Urine >100 /hpf (0-3); pH Urine 6.5 (5.0-9.0)
[2024-10-31] MEDS: ACETAMINOPHEN 500 MG TABLET 1000 MG PO (12:32)
[2024-10-31] MEDS: NITROFURANTOIN MONOHYD MACROCR 100 MG CAP PO (13:08)
== END 2024-10-31 13:16 | disposition home or self-care (01) ==
PROVIDERS: Emergency Provider Emergency Medicine; PCP Registered Nurse
DX: O86.20 Urinary tract infection following delivery, unspecified (principal); N39.0 Urinary tract infection, site not specified; O72.2 Delayed and secondary postpartum hemorrhage; Z87.891 Personal history of nicotine dependence
CPT/HCPCS: 36415; 76830; 76856; 80053; 81001; 83690; 85025; 85610; 85730; 86850; 86900; 86901; 96360; 99284; A9270; J7120